=== PATIENT | female | born 1995 | race Caucasian/White ===

== ENCOUNTER → 2022-12-07 | Outpatient (CLI) | payer MEDICAID, SELFPAY ==
[2022-12-12 21:07] LABS: IgG, Quant 1168 mg/dL (586-1602); Immunoglobulin E 131 IU/mL (6-495); Immunoglobulin G, Subclass 1 633 mg/dL (248-810); Immunoglobulin G, Subclass 2 359 mg/dL (130-555); Immunoglobulin G, Subclass 3 74 mg/dL (15-102); Immunoglobulin G, Subclass 4 11 mg/dL (2-96)
== END | disposition home or self-care (01) ==
LOC: LAB 16:51
PROVIDERS: PCP Nurse Practitioner Family; Referring Provider Otolaryngology; Visit Provider Otolaryngology
DX: J35.02 Chronic adenoiditis (principal)
CPT/HCPCS: 36415; 82784; 82785; 82787

== ENCOUNTER → 2025-02-28 | Outpatient (CLI) | payer MEDICAID, SELFPAY ==
--- NOTE | 2025-02-28 06:56 | ECHOD_ITS ---
Reason For Study Reason For Study: Chest Pain Procedure This was a 2D Doppler, Color Flow transthoracic echocardiogram. Exam performed in department. Left Ventricle Normal LV size. Left ventricular systolic function is normal. The left ventricular ejection fraction is 60 %. No regional wall motion abnormalities noted. Right Ventricle Normal RV size. Normal systolic function. Atria Normal left atrium. Normal right atrium. Mitral Valve Normal mitral valve. Tricuspid Valve Normal tricuspid valve. Mild tricuspid valve insufficiency. Pulmonary artery systolic pressure is 19 mmHg. Aortic Valve Normal aortic valve. Pulmonic Valve Normal pulmonic valve. Great Vessels Normal aortic root. The pulmonary artery is normal size. Inferior vena cava collapse with respiration. Pericardium/Pleural No pericardial effusion. MMode/2D Measurements & Calculations LVIDd: 5.0 cm IVSd: 0.77 cm Ao root diam: 2.6 cm LVIDs: 3.3 cm LVPWd: 0.70 cm RVDd: 3.8 cm FS: 33.3 % LAV(MOD-bp): 42.0 ml LVAd ap4: 29.0 cm2 SV(MOD-sp4): 54.4 ml LAV(MOD-bp) Indexed: 21.3 ml/m2 LVLd ap4: 8.0 cm SI(MOD-sp4): 27.5 ml/m2 LAV(MOD-sp2): 35.0 ml EDV(MOD-sp4): 87.3 ml LAV(MOD-sp4): 44.7 ml EDV(sp4-el): 88.9 ml LVAs ap4: 15.7 cm2 LVLs ap4: 6.2 cm ESV(MOD-sp4): 32.8 ml ESV(sp4-el): 33.6 ml EF(MOD-sp4): 62.4 % EF(sp4-el): 62.2 % SV(sp4-el): 55.2 ml LA A4 area: 17.1 cm2 LA dimension(2D): 4.2 cm RA A4 area: 12.3 cm2 TAPSE: 2.1 cm Time Measurements MV dec time: 0.16 sec Doppler Measurements & Calculations MV E max andrea: 66.6 cm/sec Lat Peak E' Andrea: 14.3 cm/sec Med Peak E' Andrea: 9.5 cm/sec MV A max andrea: 52.4 cm/sec E/E' lat: 4.7 E/E' med: 7.0 MV E/A: 1.3 Ao V2 max: 89.7 cm/sec LV V1 max: 79.9 cm/sec MV dec slope: 423.6 cm/sec2 Ao max P.2 mmHg LV V1 max P.6 mmHg Ao V2 mean: 66.6 cm/sec LV V1 mean P.5 mmHg Ao mean P.0 mmHg LV V1 mean: 57.5 cm/sec Ao V2 VTI: 22.0 cm LV V1 VTI: 18.6 cm AV (velocity ratio): 0.84 PA V2 max: 87.2 cm/sec TR max andrea: 196.0 cm/sec TR max P.4 mmHg ECHO/Echo Complete Interpretation Summary Normal LV size. Left ventricular systolic function is normal. The left ventricular ejection fraction is 60 %. Pulmonary artery systolic pressure is 19 mmHg. Ordering Physician: Justyna Mendoza Referring Physician: Justyna Mendoza Performed By: Shannon Burt, IGLESIA, RVT
--- OUTSIDE RECORDS SUMMARY | 2025-02-28 06:59 | XMS RPT_ITS | CCD ---
Author Organization [facility] CliniSynj Care Team Providers Care Weeder Thinner Name Role Phone Unavailable Primary Care Provider UnavailDIONICIO Wiggins Referring Unavailable Ungerer Nayan RODRIGEZssmontana Rasheed Primary Care Provider [phone] DIONICIO VACA Attending Unavailable DINOICIO VACA Admitting Unavailable DIONICIO VACA Attending Unavailable DIONICIO VACA Attending Unavailable DIONICIO VACA Referring Unavailable UNGERER, JUSTYNA D Primary Care Unavailable BANJAKalyani PAULA L Attending Unavailable UNGERER, JUSTYNA D Primary Care Unavailable MAGGIE HUITRON Attending Unavailable BANJAC, PAULA L Referring Unavailable UNGERER, JUSTYNA D Primary Care Unavailable BANJAC, PAULA L Referring Unavailable UNGERER, JUSTYNA D Primary Care Unavailable BANAMOL PAULA L Attending Unavailable DIONICIO VACA Referring Unavailable UNGERER, JUSTYNA D Primary Care Unavailable BANJAC, PAULA L Referring Unavailable UNGERER, JUSTYNA D Primary Care Unavailable BANJAC, PAULA L Referring Unavailable UNGERER, JUSTYNA D Primary Care Unavailable BANJAC, PAULA L Referring Unavailable UNGERER, JUSTYNA D Primary Care Unavailable BANJAC, PAULA L Referring Unavailable UNGERER, JUSTYNA D Primary Care Unavailable BANJAC, PAULA L Referring Unavailable UNGERER, JUSTYNA D Primary Care Unavailable BANJAC, PAULA L Referring Unavailable UNGERER, JUSTYNA D Primary Care Unavailable BANJAC, PAULA L Referring Unavailable UNGERER, JUSTYNA D Primary Care Unavailable BANJAC, PAULA L Referring Unavailable UNGERER, JUSTYNA D Primary Care Unavailable BANJAC, PAULA L Referring Unavailable UNGERER, JUSTYNA D Primary Care Unavailable BANJAC, PAULA L Referring Unavailable UNGERER, JUSTYNA D Primary Care Unavailable DEBORAHRACHELKalyaniKATIUSKAEN L Referring Unavailable UNGERER, JUSTYNA D Primary Care Unavailable UNGERER, JUSTYNA CARD MAKER Attending Unavailable UNGERER, JUSTYNA CARD MAKER Admitting Unavailable UNGERER, JUSTYNA CARD MAKER Primary Care Unavailable UNGERER, JUSTYNA CARD MAKER Consulting Unavailable PROVIDER, UNKNOWN Consulting Unavailable UNGERER, JUSTYNA CARD MAKER Admitting Unavailable UNGERER, JUSTYNA CARD MAKER Primary Care Unavailable UNGERER, JUSTYNA CARD MAKER Consulting Unavailable UNGERER, JUSTYNA CARD MAKER Attending Unavailable PROVIDER, UNKNOWN Consulting Unavailable MABANK, LUZ Primary Care Unavailable MABANK, LUZ Attending Unavailable MABANK, LUZ Admitting Unavailable BIRDIE, PATRIA TRAUMA PROGRAM MANAGER Consulting Unavailable PROVIDER, UNKNOWN Consulting Unavailable PROVIDER, UNKNOWN Consulting Unavailable UNGERER, JUSTYNA CARD MAKER Attending Unavailable UNGERER, JUSTYNA CARD MAKER Admitting Unavailable BIRDIE, PATRIA TRAUMA PROGRAM MANAGER Consulting Unavailable UNGERER, JUSTYNA CARD MAKER Primary Care Unavailable PROVIDER, UNKNOWN Consulting Unavailable PROVIDER, UNKNOWN Consulting Unavailable UNGERER, JUSTYNA CARD MAKER Attending Unavailable UNGERER, JUSTYNA CARD MAKER Admitting Unavailable UNGERER, JUSTYNA CARD MAKER Primary Care Unavailable UNGERER, JUSTYNA CARD MAKER Consulting Unavailable PROVIDER, UNKNOWN Consulting Unavailable UNGERER, JUSTYNA CARD MAKER Attending Unavailable UNGERER, JUSTYNA CARD MAKER Admitting Unavailable UNGERER, JUSTYNA CARD MAKER Primary Care Unavailable UNGERER, JUSTYNA CARD MAKER Consulting Unavailable PROVIDER, UNKNOWN Consulting Unavailable UNGERER, JUSTYNA CARD MAKER Admitting Unavailable UNGERER, JUSTYNA CARD MAKER Primary Care Unavailable UNGERER, JUSTYNA CARD MAKER Consulting Unavailable UNGERER, JUSTYNA CARD MAKER Attending Unavailable PROVIDER, UNKNOWN Consulting Unavailable PATRIA PACKER TRAUMA PROGRAM MANAGER Consulting Unavailable PATRIA PACKER TRAUMA PROGRAM MANAGER Attending Unavailable PATRIA PACKER TRAUMA PROGRAM MANAGER Admitting Unavailable PATRIA PACKER TRAUMA PROGRAM MANAGER Primary Care Unavailable PROVIDER, UNKNOWN Consulting Unavailable PROVIDER, UNKNOWN Consulting Unavailable Birdie CARD MAKER-C, Patria Primary Care Provider [phone] Birdie CARD MAKER-CPatria Referring Provider Ungfelixr CARD MAKER-C, Justyna Attending Provider Birdie CARD MAKERPatria Referring Unavailable Ungerer, Justyna Attending Unavailable Ungerer, Justyna Primary Care Unavailable Ungerer, Jsutyna Referring Unavailable Ungerer, Justyna Attending Unavailable Ungerer, Justyna Primary Care Unavailable Medications Current Medications Medication Drug Class(es) Dates Sig (Normalized) Sig (Original) acetaminophen 325 mg / HYDROcodone bitartrate 5 mg oral tablet (1 source) Opioid Agonist Start: 04-18-2024 End: 04-20-2024 HYDROcodone-acetamin ophen (NORCO) 5-325 mg per tablet Indications: acute post operative pain Take 1 tablet every 6 to 8 hours as needed for severe post op pain 6 tablet 04/18/2024 04/20/2024 Active cyclobenzaprine hydrochloride 5 mg oral tablet (1 source) Muscle Relaxant Start: 02-11-2025 take 1 tablet by mouth at bedtime as needed for muscle spasms Cyclobenzaprine 5 mg tablet Active 5 mg PO AT BEDTIME as needed for muscle spasm 30 0 February 11, 2025 12:00am ibuprofen 600 mg oral tablet (17 sources) Nonsteroidal Anti-inflammatory Drug Start: 04-18-2024 ibuprofen (MOTRIN) 600 mg tablet Take 1 tablet every 6 o 8 hours as needed for pain or swelling 28 tablet 04/18/2024 Active thyroid (intermediate) 180 mg oral tablet (20 sources) Start: 02-11-2025 take 1 tablet by mouth once daily Thyroid (Pork) 180 mg tablet Active 180 mg PO daily 90 3 February 11, 2025 10:07am Start: 06-12-2023 End: 02-11-2025 Thyroid (Pork) (Termite Helper Thyroid) 90 mg tablet Discontinued mg PO June 12, 2023 1:00am February 11, 2025 10:09am Start: 08-12-2021 take 1 tablet by brad th once daily CARD MAKER THYROID 120 mg tablet Take 120 mg by mouth once daily. 08/12/2021 Active Start: 08-12-2021 thyroid (CARD MAKER TH YROID) 15 mg tablet Take 15 mg by mouth once daily. Total 135 mg daily 08/12/2021 Active Completed/Discontinued Medications Medication Drug Class(es) Dates Sig (Normalized) Sig (Original) acetaminophen 325 mg oral tablet (18 sources) Start: 04-18-2024 End: 04-18-2024 650 mg, ORAL, ONCE, 1 dose, On Ursula 04/18/24 at 1530, For mild pain or headache, if not given any other Acetaminophen containing product 4 hours prior, Recovery or Phase I (only) Start: 04-18-2024 acetaminophen (ACETAMINOPHEN EXTRA STRENGTH) 500 mg tablet Take 1 tablet every 4 to 6 hours as needed for pain 40 tablet 04/18/2024 Active calcium chloride 0.0014 meq/ml / potassium chloride 0.004 meq/ml / sodium chloride 0.103 meq/ml / sodium lactate 0.028 meq/ml injectable solution (2 sources) Start: 04-18-2024 End: 04-19-2024 take 5-30 mL intravenously every hour 5-30 mL/hr, INTRAVENOUS, CONTINUOUS, Starting on Ursula 04/18/24 at 1530, Until Mon04/19/24 at 0304, Recovery or Phase I (only) Meperidine (2 sources) Opioid Agonist Start: 04-18-2024 End: 04-19-2024 25 mg, INTRAVENOUS, EVERY 5 MINUTES NEEDED, 6 doses, Starting on Ursula 04/18/24 at 1513, Until Mon04/19/24 at 0304, Moderate Pain (4-6) - Parenteral, Severe Pain (>/=7) - Parenteral, First Line Therapy, USE FOR MODERATE TO SEVERE PAIN ONLY IF PATIENT IS UNABLE TO TOLERATE ORAL THERAPY, Recovery or Phase I (only) Start: 04-18-2024 End: 04-19-2024 12.5 mg, INTRAVENOUS, EVERY 10 MINUTES NEEDED, 2 doses, Starting on Ursula 04/18/24 at 1513, Until Mon04/19/24 at 0304, for shivering, May Repeat 12.5 mg in 10 minutes X1 for Continued Shivering, Recovery or Phase I (only) oxyCODONE hydrochloride 5 mg oral tablet (1 source) Opioid Agonist Start: 04-18-2024 End: 04-18-2024 take 1 dose by mouth once 10 mg, ORAL, ONCE, 1 dose, On Ursula 04/18/24 at 1530, Recovery or Phase I (only) Problems Active Problems Problem Classification Problem Date Documented Date Episodic/Chronic Esophageal disorders (20 sources) Gastroesophageal reflux disease; Translations: [Gastro-esophageal reflux disease without esophagitis] 04-11-2024 Chronic Headache; including migraine (1 source) Migraine; Translations: [Migraine, unspecified, not intractable, without status migrainosus] 02-11-2025 Chronic Nonspecific chest pain (2 sources) Other chest pain; Translations: [Other chest pain] Onset: 02-11-2025 Episodic Nutritional deficiencies (1 source) Vitamin deficiency; Translations: [Vitamin deficiency, unspecified] 02-11-2025 Episodic Other congenital anomalies (20 sources) Donte-Danlos syndrome; 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, unspecified] 04-11-2024 Chronic Other congenital anomalies (1 source) Talipes cavus; Translations: [Congenital pes cavus, right foot] 06-04-2024 Chronic Other connective tissue disease (1 source) Hand pain; Translations: [Pain in right hand] 06-12-2023 Episodic Other nervous system disorders (4 sources) Other chronic pain; Translations: [Chronic pain of left knee] Onset: 03-13-2024 Chronic Other nervous system disorders (1 source) Postoperative pain ; Translations: [Other acute postprocedural pain] 04-18-2024 Episodic Other non-traumatic joint disorders (20 sources) Pain in left knee; Translations: [Pain in joint, lower leg] Onset: 03-13-2024 01-24-2024 Episodic Other non-traumatic joint disorders (3 sources) Acute ankle pain; Translations: [Pain in left ankle and joints of left foot] 05-07-2024 Episodic Other non-traumatic joint disorders (2 sources) Chronic ankle pain; Translations: [Pain in right ankle and joints of right foot] 05-07-2024 Episodic Other non-traumatic joint disorders (1 source) Ankle instability; Translations: [Other instability, unspecified ankle] 06-04-2024 Episodic Other non-traumatic joint disorders (1 source) Pain in left ankle and joints of left foot; Translations: [Acute left ankle pain] Onset: 06-04-2024 Episodic Other non-traumatic joint disorders (1 source) Pain in right ankle and joints of right foot; Translations: [Chronic pain of right ankle] Onset: 06-04-2024 Episodic Other non-traumatic joint disorders (1 source) Pain in right knee; Translations: [Pain in right knee] Onset: 02-11-2025 Episodic Other nutritional; endocrine; and metabolic disorders (20 sources) Obese class II; Translations: [Obesity, unspecified] Onset: 04-11-2024 04-11-2024 Chronic Other skin disorders (1 source) Eruption; Translations: [Rash and other nonspecific skin eruption] 04-11-2024 Episodic Residual codes; unclassified (20 sources) Pain; Translations: [Pain, unspecified] Onset: 04-18-2024 01-24-2024 Episodic Sprains and strains (1 source) Sprain of left ankle; Translations: [Sprain of unspecified ligament of left ankle, initial encounter] 06-12-2023 Episodic Thyroid disorders (20 sources) Hypothyroidism; Translations: [Hypothyroidism, unspecified] Onset: 04-11-2024 04-11-2024 Chronic Unclassified (1 source) Physical Therapy Onset: 05-02-2024 Unclassified (1 source) Cough, unspecified; Translations: [Cough, unspecified] Onset: 08-30-2024 Unclassified (1 source) Pain in both knees Unclassified (1 source) Q79.60 - Donte-Danlos syndrome, unspecified,M25.561 - Pain in right knee,M25.562 - Pain in left knee Unclassified (1 source) Donte-Danlos syndrome, unspecified; Translations: [Dnote-Danlos syndrome, unspecified] Onset: 02-11-2025 Past or Other Problems Problem Classification Problem Date Documented Da te Episodic/Chronic Malaise and fatigue (1 source) Other fatigue; Translations: [Other fatigue] Onset: 01-05-2024 Episodic Other injuries and conditions due to external causes (3 sources) Unspecified injury of right foot, initial encounter; Translations: [Unspecified injury of right foot, initial encounter] Onset: 03-25-2024 Episodic Residual codes; unclassified (1 source) Pain, unspecified; Translations: [Pain] Onset: 01-24-2024 Episodic Results Test Name Value Interpretation Reference Range Facility Internal Medicine Office Vis iton 02-11-2025 Internal Medicine Office Visit [facility] [address] [place], [place] [address] OFFICE VISIT Date of Service: 02/11/25 MR#: [id number] Acct: [id number] Name: RERE KNUTSON Rep #: [id number] : 1995 Provider: ANGELI pugh Age/Sex: 30/F Location: [facility] [place] Status: Signed Intake Vital Signs 06/12/23 09:29 02/11/25 09:04 Height 5 ft 7 in 5 ft 7 in Weight: 252 lb BMI 39.4 BP 130/78 H Blood Pressure Location Lt brachial Position Sitting Respiration 16 Pulse 90 Pulse Source Monitor Temp 97.8 F Temp Source Temporal Pulse Oximetry (%) 98 Oxygen Delivery Method room air Intake Visit Reasons: EST NEW PT - NEEDS [facility] - [facility] PT Chief Complaint: establishing neck pain Kitchen Clerk Required: No Accompanied by: Self Is patient in pain?: No Allergies No Known Allergies Allergy (Unverified 02/11/25 08:57) Medications ???Medication ???Instructions ???Recorded ???Confirmed ???Type cyclobenzaprine 5 mg tablet 5 mg PO QHS PRN muscle spasm #30 0 02/11/25 02/11/25 Rx tabs thyroid (pork) 180 mg tablet 180 mg PO QDAY #90 tabs 02/11/25 0 02/11/25 Rx Nurse's Note: establishing and neck pain today PFSH Medical History (Updated 02/11/25 @ 13:34 by ANGELI Tan) Vitamin deficiency GERD (gastroesophageal reflux disease) Migraines Donte-Danlos syndrome Right hand pain Left ankle sprain Hx of cyst of breast Surgical History (Updated 02/11/25 @ 09:16 by Tierney Nunn) H/O lumpectomy Hx of anterior cruciate ligament surgery Family History (Updated 02/11/25 @ 09:15 by Tierney Nunn) Mother Autoimmune disease Diabetes Grandfather Parkinsons disease Seizures History of heart attack Grandmother Diabetes CVA (cerebral vascular accident) Autoimmune disease Social History (Updated 02/11/25 @ 09:08 by Tierney Nunn) adopted: No household members: family housing: house current occupational status: employed current occupational exposures/hazards: No pets and animals: Yes leisure activities: sports, games and reading history of recent travel: Yes out of country: Yes sexually active: No Smoking Status: Never smoker alcohol intake: never substance use type: does not use diet: gluten free and other well-balanced diet: daily or most days caffeine: No eating out: rarely or never during the past year weight has: other details: fluctuates both up and down what type of physical activity do you participate in: walking, bicycling and swimming frequency: daily duration: 15-30 minutes/day john/hoahaoism: Gnosticist seatbelt use: always do you feel safe at home: Yes HPI HPI Chief Complaint: establishing neck pain Details: RERE KNUTSON, is a 30 F who presents to the office today to establish care with a new provider. This patient is known to this provider from previous office. Patient here today with complaints of neck pain chronic pain in bilateral knees and right ankle. Patient with history of Donte-Danlos syndrome. And hypothyroidism currently on Prather Thyroid. States last TSH was checked in January and was normal. She does complain of stiff neck states she has had a little bit of sore throat and headache and some pain into the right jaw and down the back of the neck she has had some occasional dizziness as well as a frontal headache. States she does have a history of seasonal allergies. No known injuries or increased illnesses. Patient states in December she did travel to [place] and had a bug bite and she felt sick for a while after that however she that illness resolved but she does seem to complain of more fatigue than usual. Also complains of occasional left-sided chest pain that comes and goes feels sharp when it does occur states 2 years ago she went to the emergency room and they did an EKG she states it was normal denies further cardiac workup has had a history of limb swelling and lightheadedness and dizziness. ROS Const Constitutional: Positive for fatigue and headache(s); No body ache, excessive sweating, fever(s), frequent falls, snoring, weakness, weight change, sleep problems or change in appetite Eyes Eyes: No blurry vision, change in vision, eye pain or Light sensitivity ENT ENT: Positive for headache(s) and neck pain; No abnormal hearing, ear or mastoid pain, tinnitus, nasal congestion or sore throat Resp Respiratory: No cough, shortness of breath, snoring or wheezing Cardio Cardiology: Positive for chest pain at rest and lightheadedness; No chest pain with exertion, excessive sweating, shortness of breath, dyspnea on exertion, orthopnea or palpitations Gastro GI: No abdominal pain, change in bowel habits, constipation, cramping, diarrhea, nausea/dyspepsia or vomiting Genitourinary-Female: No burning urination, painful urination, urinary inconti (more content not included)... Normal [facility] TSHon 12-09-2024 TSH Qn 2.03 m[IU]/L Normal 0.35 - 3.74 [facility] Comment on above: Performed By: #### 2 [id number] #### [facility],[address] [place] [address] US BREAST BILAT COMPLETEon 0 10-09-2024 US BREAST BILAT COMPLETE [place] [id number] Patient: RERE KNUTSON Phone#: : 1995 Age: 29 Gender: F Pt. Type: Out Account: [id number] Location: [facility] Ordering: PATRIA PACKER Exam Date: 10/09/2024/11:34 Family Phys: Charge Code: [id number] Physician: Essex Order #: [id number] Dose#: PROCEDURE: ULTRASOUND BREAST BILAT COMPARISON: [facility], US, CORE BIOPSY BREAST BILATERAL-US 1ST LESION, 12/06/2023, 8:57. [facility], US, BREAST BILAT COMPLETE, 11/09/2023, 8:36. INDICATIONS: Follow up breast masses TECHNIQUE: Breast ultrasound was performed, with evaluation focusing on all four quadrants. FINDINGS: DIAGNOSTIC CATEGORY 3--PROBABLY BENIGN: FINDING(S) HAS A HIGH PROBABILITY OF A BENIGN; RIGHT BREAST: Solid benign-appearing circumscribed mass, hypoechoic echotexture, mid- breast depth, 12 o'clock position, and 18 x 9 x 16 mm size, unchanged. RIGHT BREAST: Solid benign-appearing circumscribed mass, hypoechoic echotexture, mid- breast depth, 12 o'clock position, and 6x6x6 mm size, previously 8 x 6 x 8 mm. Biopsy-proven fibroadenoma. RIGHT BREAST: Solid benign-appearing circumscribed mass, hypoechoic echotexture, anterior depth, 12 o'clock position, and 6x4x7 mm size, previously 8 x 4 x 8 mm. RIGHT BREAST: Simple benign-appearing cyst, anechoic echotexture, anterior depth, 12 o'clock position, and 4x5x4 mm size. RIGHT BREAST: Enlarging solid appearing mass with likely benign morphology, hypoechoic echotexture, anterior depth, 2 o'clock position, and [id number] mm size, previously 13 x 11 x 13 mm. RIGHT BREAST: Enlarging solid benign-appearing circumscribed mass, hypoechoic echotexture, mid-breast depth, 11 o'clock position, and 38 x 26 x 32 mm, previously [id number] mm size. This is biopsy-proven fibroadenoma. LEFT BREAST: Enlarging solid appearing mass with likely benign morphology, hypoechoic echotexture, anterior depth, 12 o'clock position, and [id number] mm size, previously 19 x 16 x 26 mm. Continued Report - Page 2 of 2 Patient: RERE KNUTSON Phone#: : 1995 Age: 29 Gender: F Pt. Type: Out Account: [id number] Location: [facility] Ordering: PATRIA PACKER Exam Date: 10/09/2024/11:34 Family Phys: Charge Code: [id number] Physician: Essex Order #: [id number] Dose#: LEFT BREAST: Solid benign-appearing circumscribed mass, hypoechoic echotexture, anterior depth, 12 o'clock position, and [id number] mm size, previously 15 x 14 x 13 mm. Biopsy-proven fibroadenoma. LEFT BREAST: Enlarging solid lesion, hypoechoic echotexture, anterior depth, 12 o'clock position, and [id number] mm size, previously 10 x 8 x 8 mm. Biopsy-proven fibroadenoma. LEFT BREAST: Solid benign-appearing circumscribed mass, hypoechoic echotexture, anterior depth, 12 o'clock position, and 9x6x10 mm size, previously 8 x 6 x 10 mm. LEFT BREAST: Simple benign-appearing cyst, anechoic echotexture, anterior depth, 3 o'clock position, and 4x3x4 mm size. LEFT BREAST: Solid benign-appearing circumscribed mass, hypoechoic echotexture, anterior depth, 3 o'clock position, and 6x4x6 mm size, previously 6 x 7 mm. LEFT BREAST: Solid appearing mass with likely benign morphology, isoechoic echotexture, mid-breast depth, 6 o'clock position, and 6x4x6 mm size, previously 5 x 4 x 7 mm. Margins are mildly irregular. LEFT BREAST: Stable cluster of simple benign-appearing cyst, anechoic echotexture, posterior depth, 10 o'clock position, and 10 mm size. RECOMMENDATIONS: SHORT TERM FOLLOW-UP ULTRASOUND LEFT BREAST IN 6 MONTHS solid lesion in the 6 o'clock position with irregular margins. Several lesions have increased size compared to prior. Some of these lesions are biopsy- proven fibroadenomas. PLEASE NOTE: A NORMAL MAMMOGRAM DOES NOT EXCLUDE THE POSSIBILITY OF BREAST CANCER. A CLINICALLY SUSPICIOUS PALPABLE LUMP SHOULD BE BIOPSIED. Dictated by: Marge Starr MD on 10/09/2024 at 16:31 Approved by: Marge Starr MD on 10/09/2024 at 17:21 Normal [facility] CBC + DIFFon 08-30-2024 Baso # 0.02 x10EE3/UL Normal 0.00 - 0.10 [facility] Comment on above: Performed By: #### 2 [id number] #### [facility],[address] [place], [place] [id number] Basophils/100 WBC (Bld) 0.2 % Normal 0.0 - 2.0 [facility] Comment on above: Performed By: #### 2 [id number] #### [facility],[address] [place] [address] CBC + DIFF Normal [facility] Comment on above: Result Comment: CBC- COMPLETE BLOOD COUNT Performed By: #### 2 [id number] #### [facility],[address] [place], [place] [id number] EO # 0.26 x10EE3/UL Normal 0.00 - 0.50 [facility] Comment on above: Performed By: #### 2 40526 #### [facility],[address] [place] [address] Eosinophils/100 WBC (Bld) 2.9 % Normal 0.0 - 7.0 [facility] Comment on above: Performed By: #### 2 [id number] #### [facility],[address] [place] [address] Erythrocyte distribution width (RBC) [Ratio] 13.9 % Normal 12.0 - 15.6 [facility] Comment on above: Performed By: #### 2 [id number] #### [facility],[address] [place] [address] Hematocrit (Bld) [Volume fraction] 42.6 % Normal 34.0 - 46.0 [facility] Comment on above: Performed By: #### 2 [id number] #### [facility],[address] [place] [address] Hemoglobin (Bld) [Mass/Vol] 14.5 g/dL Normal 12.0 - 16.0 [facility] Comment on above: Performed By: #### 2 [id number] #### [facility],[address] [place] [address] Lymph # 2.47 x10EE3/UL Normal 0.80 - 2.80 [facility] Comment on above: Performed By: #### 2 [id number] #### [facility],[address] [place] [address] Lymphocytes/100 WBC (Bld) 28.0 % Normal 20.0 - 45.0 [facility] Comment on above: Performed By: #### 2 23705 #### [facility],[address] [place] [address] MANUAL DIFF N/A Normal [facility] Comment on above: Performed By: #### 2 [id number] #### [facility],[address] [place], [place] [id number] MCH (RBC) [Entitic mass] 29 pg Normal 27 - 33 [facility] Comment on above: Performed By: #### 2 02247 #### [facility],[address] [place] [address] MCHC 34 X10 3 Normal 32 - 36 [facility] Comment on above: Performed By: #### 2 [id number] #### [facility],[address] [place], [place] [address] MCV (RBC) [Entitic vol] 85 fL Normal 80 - 99 [facility] Comment on above: Performed By: #### 2 88539 #### [facility],[address] [place] [address] Foard # 0.53 x10EE3/UL Normal 0.20 - 1.00 [facility] Comment on above: Performed By: #### 2 81179 #### [facility],[address] [place] [address] MONOS % 6.0 % Normal 0.0 - 10.0 [facility] Comment on above: Performed By: #### 2 [id number] #### [facility],[address] [place] [address] Morphology Lion (Bld) [Interp] N/A Normal [facility] Comment on above: Performed By: #### 2 [id number] #### [facility],[address] [place], [place] [address] Neut # 5.56 x10EE3/UL Normal 1.50 - 7.10 [facility] Comment on above: Performed By: #### 2 [id number] #### [facility],[address] [place] [address] Neutrophils/100 WBC (Bld) 62.9 % Normal 46.0 - 76.0 [facility] Comment on above: Performed By: #### 2 97777 #### [facility],[address] [place] [address] PLATELET 388 x10EE3/UL Normal 150 - 450 [facility] Comment on above: Performed By: #### 2 19217 #### [facility],[address] [place], [place] [id number] Platelet mean volume (Bld) [Entitic vol] 7.5 fL Normal 6.6 - 10.5 [facility] Comment on above: Result Comment: AUTO MATED DIFFERENTIAL Performed By: #### 2 53885 #### [facility],[address] [place] [address] 51420 RBC 5.00 x 10EE6/UL Normal 4.10 - 5.30 [facility] Comment on above: Performed By: #### 2 42292 #### [facility],[address] [place] [address] 48835 WBC 8.8 x 10EE3/UL Normal 4.5 - 10.8 [facility] Comment on above: Performed By: #### 2 74649 #### [facility],[address] [place] [address] 77285 CHEST 2 VIEWSon 08-30-2024 CHEST 2 VIEWS [place] [address] Patient: RERE KNUTSON Phone#: : 1995 Age: 29 Gender: F Pt. Type: Out Account: [id number] Location: [facility] Ordering: JUSTYNA COLUNGA Exam Date: 08/30/2024/9:52 Family Phys: Charge Code: 112803 Physician: [place] Order #: [id number] Dose#: PROCEDURE: X-RAY CHEST 2 VIEWS COMPARISON: [facility], XR, CHEST 1 VIEW, 03/18/2023, 23:53. INDICATIONS: Cough in adult. FINDINGS: LUNGS: Normal. No significant pulmonary parenchymal abnormalities. VASCULATURE: Normal. Unremarkable pulmonary vasculature. CARDIAC: Normal. No cardiac silhouette abnormality or cardiomegaly. MEDIASTINUM: Normal. No visible mass or adenopathy. PLEURA: Normal. No effusion or pleural thickening. BONES: Normal. No fracture or visible bony lesion. OTHER: Negative. CONCLUSION: No acute disease. No significant change has occurred. Dictated by: Laila Temple MD on 08/30/2024 at 10:02 Approved by: Laila Temple MD on 08/30/2024 at 10:03 Normal [facility] CMP with eGFRon 08-30-2024 AGE 29 years Normal [facility] Comment on above: Performed By: #### 2 13470 #### [facility],[address] [place] [address] 92105 Albumin [Mass/Vol] 3.5 g/dL Normal 3.4 - 5.0 [facility] Comment on above: Performed By: #### 2 23406 #### [facility],[address] [place] [address] 72281 Albumin/Globulin [Mass ratio] 1.0 {ratio} Normal 0.9 - 1.6 [facility] Comment on above: Performed By: #### 2 19322 #### [facility],[address] [place] [address] 81294 ALK PHOS 84 U/L Normal 46 - 116 [facility] Comment on above: Performed By: #### 2 65429 #### [facility],[address] [place] [address] 35242 ALT [Catalytic activity/Vol] 19 U/L Normal 16 - 63 [facility] Comment on above: Performed By: #### 2 17169 #### [facility],[address] [place] [address] 88495 Anion gap [Moles/Vol] 12 mmol/L Normal 10 - 20 [facility] Comment on above: Performed By: #### 2 64063 #### [facility],[address] [place] [address] 22042 AST [Catalytic activity/Vol] 16 U/L Normal 13 - 39 [facility] Comment on above: Performed By: #### 2 48116 #### [facility],[address] [place] [address] 78047 B/C RATIO 13 ratio Normal 0 - 30 [facility] Comment on above: Performed By: #### 2 75899 #### [facility],[address] [place] [address] 45090 Bilirubin [Mass/Vol] 0.2 mg/dL Normal 0.2 - 1.0 [facility] Comment on above: Performed By: #### 2 84718 #### [facility],[address] [place] [address] 44278 Calcium [Mass/Vol] 8.7 mg/dL Normal 8.5 - 10.1 [facility] Comment on above: Performed By: #### 2 69770 #### [facility],[address] [place] [address] 53395 Chloride [Moles/Vol] 107 mmol/L Normal 98 - 107 [facility] Comment on above: Performed By: #### 2 57999 #### [facility],[address] [place] [address]24 CMP with eGFR Normal [facility] Comment on above: Result Comment: COMP REHENSIVE METABOLIC PANEL Performed By: #### 2 23459 #### [facility],[address] [place] [address]8950 CO2 [Moles/Vol] 26.1 mmol/L Normal 21.0 - 32.0 [facility] Comment on above: Performed By: #### 2 02523 #### [facility],[address] [place] [address] 99941 Creatinine [Mass/Vol] 0.77 mg/dL Normal 0.55 - 1.02 [facility] Comment on above: Performed By: #### 2 00574 #### [facility],[address] [place] [address] 11906 GFR/1.73 sq M.predicted among non-blacks MDRD (S/P/Bld) [Vol rate/Area] mL/min/{1.73_m2} Normal 60 - 999 [facility] Comment on above: Performed By: #### 2 30639 #### [facility],[address] [place], [place] [address] Result Comment: ACCO RDING TO THE NATIONAL KIDNEY DISEASE EDUCATION PROGRAM(NKDE), A NORMAL eGFR IS A VALUE GREATER THAN OR EQUAL TO 60 ML/MIN/1.73 SQ METERS. CHRONIC KIDNEY DISEASE: <60mL/MIN/1.73 SQ METERS KIDNEY FAILURE: <15mL/MIN/1.73 SQ METERS THIS TEST SHOULD ONLY BE USED FOR PATIENTS 18 YEARS OF AGE AND OLDER. Globulin (S) [Mass/Vol] 3.5 g/dL Normal 1.5 - 3.8 [facility] Comment on above: Performed By: #### 2 42221 #### [address] [address] Glucose [Mass/Vol] 106 mg/dL Normal 74 - 106 [facility] Comment on above: Performed By: #### 2 41205 #### [address] [address] Potassium [Moles/Vol] 4.1 mmol/L Normal 3.5 - 5.1 [facility] Comment on above: Performed By: #### 2 14938 #### [address] [address] Protein [Mass/Vol] 7.0 g/dL Normal 6.4 - 8.2 [facility] Comment on above: Performed By: #### 2 54507 #### [address] [address] Sodium [Moles/Vol] 141 mmol/L Normal 136 - 145 [facility] Comment on above: Performed By: #### 2 34784 #### [address] [address] Urea nitrogen [Mass/Vol] 10 mg/dL Normal 7 - 18 [facility] Comment on above: Performed By: #### 2 53832 #### [address] [address] T4-FREE (FREE THYROXINE)on 0 08-30-2024 Free T4 [Mass/Vol] 0.61 ng/dL Low 0.76 - 1.46 [facility] Comment on above: Result Comment: P otential of falsely elevated results when biotin concentrations are > 10 ng/mL. Performed By: #### 2 73820 #### [facility],[address] [place], [place] [address] TSHon 08-30-2024 TSH Qn 6.28 m[IU]/L High 0.35 - 3.74 [facility] Comment on above: Performed By: #### 2 01244 #### [facility],[address] [place], [place] [address] T4-FREE (FREE THYROXINE)on 08-21-2023 Free T4 [Mass/Vol] 0.74 ng/dL Low 0.76 - 1.46 [facility] Comment on above: Result Comment: P otential of falsely elevated results when biotin concentrations are > 10 ng/mL. Performed By: #### 2 47933 #### [place] [address] TSHon 06-21-2024 TSH Qn 0.22 m[IU]/L Low 0.35 - 3.74 [facility] Comment on above: Performed By: #### 2 77886 #### [facility],[address] [place] [address] CNTHERAPYon 06-10-2024 CNTHERAPY OT/PT/Speech Visit (PTNEWPHIL) RERE KNUTSON ([id number]) 1995 F Date Time Provider Department 06/10/24 8:00 AM SAMUEL VELASQUEZ Date Time Provider Department [place] 06/10/2024 8:00 AM [id number] for Visit: [facility] Therapy [503] PT Discharge [752] Primary Visit Diagnosis:Chronic pain of left knee [M25.562, G89.29] Allergies As of Date: 06/10/2024 (No Known Allergies) Date Reviewed: 06/04/2024 Reviewed by: Omayra Gan MA - Fully Assessed Prescriptions as of 09/04/2024 - acetaminophen (ACETAMINOPHEN EXTRA STRENGTH) 500 mg tablet Take 1 tablet every 4 to 6 hours as needed for pain - ibuprofen (MOTRIN) 600 mg tablet Take 1 tablet every 6 o 8 hours as needed for pain or swelling - CARD MAKER THYROID 120 mg tablet Take 120 mg by mouth once daily. - thyroid (CARD MAKER THYROID) 15 mg tablet Take 15 mg by mouth once daily. Total 135 mg daily Information Systems Security Manager: Therapy (PT/OT/Speech/Resp) ID: [id number] 06/10/2024 8:22 AM Author: SAMUEL VELASQUEZ Signed by SAMUEL VELASQUEZ PT, DPT on 06/10/2024 at 8:22 AM Document text: Program_ID:[id number] Access Code: [email or web address] URL: [email or web address] Date: 06-10-2024 Prepared By: Samuel Velasquez Program Notes Exercises - Gastroc Stretch on Wall - 1 x daily - 7 x weekly - 3 sets - 10 reps - Long Sitting Calf Stretch with Strap - 1 x daily - 7 x weekly - 3 sets - 10 reps - Ankle Dorsiflexion with Resistance - 1 x daily - 7 x weekly - 3 sets - 10 reps - CLX Ankle Dorsiflexion and Eversion - 1 x daily - 7 x weekly - 3 sets - 10 reps - Ankle Inversion with Resistance - 1 x daily - 7 x weekly - 3 sets - 10 reps - Ankle Eversion with Resistance - 1 x daily - 7 x weekly - 3 sets - 10 reps - Ankle Plantar Flexion with Resistance - 1 x daily - 7 x weekly - 3 sets - 10 reps - Seated Ankle Inversion with Resistance - 1 x daily - 7 x weekly - 3 sets - 10 reps - Heel Raises with Counter Support - 1 x daily - 7 x weekly - 3 sets - 10 reps Therapy (PT/OT/Speech/Resp) ID: [id number] 06/10/2024 8:16 AM Author: SAMUEL VELASQUEZ Signed by SAMUEL VELASQUEZ PT, DPT on 06/10/2024 at 8:16 AM Document text: Program_ID:[id number] Access Code: [email or web address] URL: [email or web address] Date: 06-10-2024 Prepared By: LUZ QUIJANO Program Notes Exercises - Active Straight Leg Raise with Quad Set - 1 x daily - 5 x weekly - 1-3 sets - 10 reps - Sidelying Hip Abduction - 1 x daily - 7 x weekly - 3 sets - 10 reps - Hip Extension with Leg Straight - 1 x daily - 7 x weekly - 3 sets - 10 reps - Supine Bridge - 1 x daily - 7 x weekly - 3 sets - 10 reps - Clamshell with Resistance - 1 x daily - 7 x weekly - 3 sets - 10 reps - Bird Dog - 1 x daily - 7 x weekly - 3 sets - 10 reps - Single Leg Stance - 1 x daily - 7 x weekly - 3 sets - 10 reps - Supine Bridge with Resistance Band - 1 x daily - 7 x weekly - 3 sets - 10 reps - Side Stepping with Resistance at Thighs - 1 x daily - 7 x weekly - 3 sets - 10 reps - Forward Monster Walks - 1 x daily - 7 x weekly - 3 sets - 10 reps - Forward Step Down with Heel Tap and Counter Support - 1 x daily - 7 x weekly - 3 sets - 10 reps - Bug - 1 x daily - 7 x weekly - 3 sets - 10 reps [facility] THERAPY NTon 06-10-2024 THERAPY NT HNO ID: [id number] Author: SAMUEL VELASQUEZ, PT Service: ? Author Type: Physical Therapist Type: Therapy (PT/OT/Speech/Resp) Filed: 06/10/2024 08:22 Note Text: Program_ID:[id number] Access Code: [email or web address] URL: [email or web address]/ Date: 06-10-2024 Prepared By: Samuel Velasquez Program Notes Exercises - Gastroc Stretch on Wall - 1 x daily - 7 x weekly - 3 sets - 10 reps - Long Sitting Calf Stretch with Strap - 1 x daily - 7 x weekly - 3 sets - 10 reps - Ankle Dorsiflexion with Resistance - 1 x daily - 7 x weekly - 3 sets - 10 reps - CLX Ankle Dorsiflexion and Eversion - 1 x daily - 7 x weekly - 3 sets - 10 reps - Ankle Inversion with Resistance - 1 x daily - 7 x weekly - 3 sets - 10 reps - Ankle Eversion with Resistance - 1 x daily - 7 x weekly - 3 sets - 10 reps - Ankle Plantar Flexion with Resistance - 1 x daily - 7 x weekly - 3 sets - 10 reps - Seated Ankle Inversion with Resistance - 1 x daily - 7 x weekly - 3 sets - 10 reps - Heel Raises with Counter Support - 1 x daily - 7 x weekly - 3 sets - 10 reps Normal [facility] THERAPY NT HNO ID: [id number] Author: SAMUEL VELASQUEZ, PT Service: ? Author Type: Physical Therapist Type: Therapy (PT/OT/Speech/Resp) Filed: 06/10/2024 08:16 Note Text: Program_ID:[id number] Access Code: [email or web address] URL: [email or web address]/ Date: 06-10-2024 Prepared By: LUZ QUIJANO Program Notes Exercises - Active Straight Leg Raise with Quad Set - 1 x daily - 5 x weekly - 1-3 sets - 10 reps - Sidelying Hip Abduction - 1 x daily - 7 x weekly - 3 sets - 10 reps - Hip Extension with Leg Straight - 1 x daily - 7 x weekly - 3 sets - 10 reps - Supine Bridge - 1 x daily - 7 x weekly - 3 sets - 10 reps - Clamshell with Resistance - 1 x daily - 7 x weekly - 3 sets - 10 reps - Bird Dog - 1 x daily - 7 x weekly - 3 sets - 10 reps - Single Leg Stance - 1 x daily - 7 x weekly - 3 sets - 10 reps - Supine Bridge with Resistance Band - 1 x daily - 7 x weekly - 3 sets - 10 reps - Side Stepping with Resistance at Thighs - 1 x daily - 7 x weekly - 3 sets - 10 reps - Forward Monster Walks - 1 x daily - 7 x weekly - 3 sets - 10 reps - Forward Step Down with Heel Tap and Counter Support - 1 x daily - 7 x weekly - 3 sets - 10 reps - Bug - 1 x daily - 7 x weekly - 3 sets - 10 reps Normal [facility] CNTHERAPYon 06-05-2024 CNTHERAPY OT/PT/Speech Visit (PTNEWPHIL) RERE KNUTSON ([id number]) 1995 F Date Time Provider Department 06/05/24 8:00 AM [facility] Date Time Provider Department Center 06/05/2024 8:00 AM [id number][facility] Reason for Visit: Physical Therapy [503] Primary Visit Diagnosis:Chronic pain of left knee [M25.562, G89.29] Allergies As of Date: 06/05/2024 (No Known Allergies) Date Reviewed: 06/04/2024 Reviewed by: Omayra Gan MA - Fully Assessed Prescriptions as of 06/05/2024 - acetaminophen (ACETAMINOPHEN EXTRA STRENGTH) 500 mg tablet Take 1 tablet every 4 to 6 hours as needed for pain - ibuprofen (MOTRIN) 600 mg tablet Take 1 tablet every 6 o 8 hours as needed for pain or swelling - CARD MAKER THYROID 120 mg tablet Take 120 mg by mouth once daily. - thyroid (CARD MAKER THYROID) 15 mg tablet Take 15 mg by mouth once daily. Total 135 mg daily [facility] CNOVon 06-04-2024 CNOV Office Visit (PODIWS ) RERE KNUTSON ([id number]) 1995 F Date Time Provider Department 06/04/24 8:45 AM MAGGIE HUITRON PODIWS During your visit today, we recorded the following information about you: Maggie Huitron 06/04/2024 10:14 AM Signed Consultation requested by Dr. Fitzgerald for an opinion regarding ankle pain. My final recommendations will be communicated back to the requesting physician by way of shared Medical record or letter to requesting physician via US mail. Initial Podiatric Office Visit: Chief Complaint: This 29 year old female who presents with chief complaint:b/l ankle pain HPI Patient presents to clinic with complaint of b/l ankle On her right ankle, she rolled her right ankle back on January 05. She never went to see anyone for the pain until later in the summer. She had xrays that were negative. She still has cramping. She does nothing for the pain On her left ankle, she feels that her left ankle is catching and popping. She does report some soreness with continued activity. PAIN EVALUATION 05/28/2024 0919 06/04/2024 0839 Pain Level: 4 2 Pain Location: Ankle-Left -- right and left foot Description: Aching;Sore;Stiffness Aching;Cramping;Tightness Duration Units: Weeks Months Frequency: Intermittent Continuous Intervention/Comfort measure: Cold -- No results found for: HBA1C PCP: Justyna Colunga CNP PAST MEDICAL HISTORY Diagnosis Date EDS (Donte-Danlos syndrome) GERD (gastroesophageal reflux disease) Hypothyroidism Obesity, Class II, BMI 35-39.9 Current Outpatient Medications Medication Sig acetaminophen (ACETAMINOPHEN EXTRA STRENGTH) 500 mg tablet Take 1 tablet every 4 to 6 hours as needed for pain ibuprofen (MOTRIN) 600 mg tablet Take 1 tablet every 6 o 8 hours as needed for pain or swelling CARD MAKER THYROID 120 mg tablet Take 120 mg by mouth once daily. thyroid (CARD MAKER THYROID) 15 mg tablet Take 15 mg by mouth once daily. Total 135 mg daily No current facility-administered medications for this visit. ALLERGIES No Known Allergies PAST SURGICAL HISTORY Procedure Laterality Date PAST SURGICAL HISTORY OF Left 2017 knee ACL PAST SURGICAL HISTORY OF Left breast lumpectomy PAST SURGICAL HISTORY OF Right breast lumpectomy FAMILY HISTORY Problem Relation Age of Onset No Known Problems Mother Hypertension Father No Known Problems Sister No Known Problems Sister Diabetes Maternal Grandmother Dementia Maternal Grandfather Parkinson's Maternal Grandfather Heart Attack Maternal Grandfather Anesthesia Problems No Family History Social History Tobacco Use Smoking status: Never Smokeless tobacco: Never Vaping Use Vaping status: Never Used Substance Use Topics Alcohol use: Never Drug use: Never REVIEW OF SYSTEMS GENERAL: Negative for Malaise, significant weight loss, fever RESPIRATORY: Negative for cough, wheezing and shortness of breath CARDIOVASCULAR: Negative for chest pain, leg swelling and palpitations GI: Negative for abdominal discomfort, blood in stools or black stools and change in bowel habits : Negative for dysuria, frequency and incontinence MUSCULOSKELETAL: Negative for joint pain or swelling, back pain, and muscle pain. SKIN: Negative for lesions, rash, and itching. HEMATOLOGY/LYMPHOLOGY Negative for prolonged bleeding, bruising easily, and swollen nodes. ENDOCRINE: Negative for cold or heat intolerance, polyuria, polydipsia and goiter. NEURO: negative Physical Exam: Constitutional: Pt is a well developed 29 year old female who is alert, oriented and cooperative Eyes: Following during examination. No redness or drainage. Respiratory: RR normal and nonlabored. Even breathing. No evidence of distress or shortness of breath. Psychology: Patient is engaged during conversation. Normal affect and mood. Does not appear depressed or anxious during encounter. Vascular: Dorsalis pedis and posterior tibial pulses palpable as b/l Capillary Fill time < 5 seconds to digits 1-5 b/l Skin temperature warm to warm proximal to distal b/l Hair growth present to digits Neurological: intact light touch/epicritic sensation b/l intact protective sensation no significant neurological deficits Dermatological: Nails 1-5 b/l appear normal. Webspaces clean and dry 1-4 b/l. Skin appears well hydrated and supple. good color, texture, turgor. No open lesions present. No callosities present. Musculoskeletal/Orthopaedic : Patient has pain to palpation of right lateral ankle. 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 MTJ, STJ are full and free of pain and crepitus. +5/5 muscle strength dorsiflexion, plantarflexion, inversion, eversion b/l No laxity with anterior drawer No subluxing peroneal (more content not included)... Normal [facility] CNTHERAPYon 05-31-2024 CNTHERAPY OT/PT/Speech Visit (PTNEWPHIL) RERE KNUTSON ([id number]) 1995 F Date Time Provider Department 05/31/24 8:45 AM [facility] Date Time Provider Department Center 05/31/2024 8:45 AM [id number] [facility] Reason for Visit: Physical Therapy [503] Primary Visit Diagnosis:Chronic pain of left knee [M25.562, G89.29] Allergies As of Date: 05/31/2024 (No Known Allergies) Date Reviewed: 05/07/2024 Reviewed by: Nelly Baxter LPN - Fully Assessed Prescriptions as of 05/31/2024 - acetaminophen (ACETAMINOPHEN EXTRA STRENGTH) 500 mg tablet Take 1 tablet every 4 to 6 hours as needed for pain - ibuprofen (MOTRIN) 600 mg tablet Take 1 tablet every 6 o 8 hours as needed for pain or swelling - CARD MAKER THYROID 120 mg tablet Take 120 mg by mouth once daily. - thyroid (CARD MAKER THYROID) 15 mg tablet Take 15 mg by mouth once daily. Total 135 mg daily Normal [facility] CNTHERAPYon 05-28-2024 CNTHERAPY OT/PT/Speech Visit (PTNEWPHIL) RERE KNUTSON ([id number]) 1995 F Date Time Provider Department 05/28/24 2:30 PM RAJINDER [facility] Date Time Provider Department Center 05/28/2024 2:30 PM [id number] [facility] Reason for Visit: Physical Therapy [503] Primary Visit Diagnosis:Chronic pain of left knee [M25.562, G89.29] Allergies As of Date: 05/28/2024 (No Known Allergies) Date Reviewed: 05/07/2024 Reviewed by: Nelly Baxter LPN - Fully Assessed Prescriptions as of 05/28/2024 - acetaminophen (ACETAMINOPHEN EXTRA STRENGTH) 500 mg tablet Take 1 tablet every 4 to 6 hours as needed for pain - ibuprofen (MOTRIN) 600 mg tablet Take 1 tablet every 6 o 8 hours as needed for pain or swelling - CARD MAKER THYROID 120 mg tablet Take 120 mg by mouth once daily. - thyroid (CARD MAKER THYROID) 15 mg tablet Take 15 mg by mouth once daily. Total 135 mg daily Normal [facility] [id number] 05-23-2024 [id number] O ID: [id number] Author: SAMUEL VELASQUEZ PT Service: ? Author Type: Physical Therapist Type: [id number] Filed: 05/23/2024 15:21 Note Text: [facility] Physical Therapy Plan of Care Certification Patient Name: Rere Knutson : 1995 [facility] #: [id number] Date: 05/23/2024 To: Paula Fitzgerald PA-C From Therapist: Samuel Velasquez PT RE: Patient Certification/ Recertification Your review, approval and electronic signature are required in order to comply with Payor: [place] [employer]ICA[employer] / Plan: [facility] MEDICAID / Product Type: Medicaid / regulations. The identified Physical Therapy PLAN OF CARE for the patient is as follows: M25.562, G89.29 Chronic pain of left knee (primary encounter diagnosis) PLAN OF CARE UPDATE: Assessment: Rere Knutson demonstrates moderate improvement in walking, lifting, physical activities, recreational activities, and squatting. The patient has progressed toward goals. Patient continues to present with impairments in balance, overall function, range of motion, strength, and symptom management that interfere with . Current prognosis is Excellent due to: current objective clinical presentation, good overall health status, positive past response to therapy . The patient will benefit from continued skilled therapy services to meet the updated goals for this plan of care as noted below. Goals for Episode of Care: established 04/29/24 [place] in home exercise program. Goal met: 05/23/24 Patient will decrease pain to 0/10 at rest and with functional activities to allow patient to improve ambulation and standing tolerance for ADLs. Progressin05/23/24 Patient will increase active ROM of L knee flexion to 140 to match the opposite extremity to allow pt to to improve postural alignment, to improve performance of ADLs, to improve gait mechanics / gait pattern , and to decrease falls risks . Patient will demonstrate increase in LLE strength to 5/5 during manual muscle testing in order to improve function for home management tasks, leisure / recreation skills, light functional tasks, moderate to heavy functional tasks, prior functional tasks, and work tasks. Progressin05/23/24 Pt will improve postural awareness to allow FWB through LLE. Progressin05/23/24 Pt will increase her ability to perform a minisquat with FWB through both extremities. Progressin05/23/24 Pt will improve semi-tandem, tandem, and L single leg stance during the 4 stage balance test to decrease risk for falls. Goal met: 05/23/24 Patient Goals: Decrease pain and strengthen L knee to be able to climb stairs normally and return to sports in her freetime Time Frame for Goals and Treatment : 06/20/24 Planned Interventions, Frequency, and Duration: 2x/week, 4 weeks Total Number of Visits Planned: 68 Patient to be seen for Therapeutic exercise (29179), Neuromuscular re-education (19825), Manual therapy (05707), Therapeutic activities (25948), Gait Training (09113), Functional training, Vasopneumatic Treatment (76858) PLAN FOR NEXT VISIT: continue progressionof L knee in CKC phase and single leg stability with various balance exercises For further details regarding this patient refer to the Physical Therapy electronically documented visit dated 05/23/2024. Provider Attestation I have reviewed the treatment plan for Rere Wili Knutson, [facility]# [id number] for the period of 04/29/24 -- 06/20/24, established on 05/23/2024. Signature certifies the need for therapy services. [facility] CNTHERAPYon 05-23-2024 CNTHERAPY OT/PT/Speech Visit (PTNEWPHIL) RERE KNUTSON ([id number]) 1995 F Date Time Provider Department 05/23/24 2:30 PM SAMUEL VELASQUEZ [facility] Date Time Provider Department Center 05/23/2024 2:30 PM [id number], WILLIAM [facility] Reason for Visit: PT Progress Note [1596] Physical Therapy [503] Primary Visit Diagnosis:Chronic pain of left knee [M25.562, G89.29] Allergies As of Date: 05/23/2024 (No Known Allergies) Date Reviewed: 05/07/2024 Reviewed by: Nelly Baxter LPN - Fully Assessed Prescriptions as of 05/23/2024 - acetaminophen (ACETAMINOPHEN EXTRA STRENGTH) 500 mg tablet Take 1 tablet every 4 to 6 hours as needed for pain - ibuprofen (MOTRIN) 600 mg tablet Take 1 tablet every 6 o 8 hours as needed for pain or swelling - CARD MAKER THYROID 120 mg tablet Take 120 mg by mouth once daily. - thyroid (CARD MAKER THYROID) 15 mg tablet Take 15 mg by mouth once daily. Total 135 mg daily [facility] CNTHERAPY OT/PT/Speech Visit (PTNEWPHIL) RERE KNUTSON ([id number]) 1995 F Date Time Provider Department 05/21/24 2:30 PM [facility] Date Time Provider Department Center 05/21/2024 2:30 PM [id number] MARKS [facility] P Reason for Visit: Physical Therapy [503] Primary Visit Diagnosis:Chronic pain of left knee [M25.562, G89.29] Allergies As of Date: 05/21/2024 (No Known Allergies) Date Reviewed: 05/07/2024 Reviewed by: Nelly Baxter LPN - Fully Assessed Prescriptions as of 05/21/2024 - acetaminophen (ACETAMINOPHEN EXTRA STRENGTH) 500 mg tablet Take 1 tablet every 4 to 6 hours as needed for pain - ibuprofen (MOTRIN) 600 mg tablet Take 1 tablet every 6 o 8 hours as needed for pain or swelling - CARD MAKER THYROID 120 mg tablet Take 120 mg by mouth once daily. - thyroid (CARD MAKER THYROID) 15 mg tablet Take 15 mg by mouth once daily. Total 135 mg daily [facility] CNTHERAPYon 05-16-2024 CNTHERAPY OT/PT/Speech Visit (PTNEWPHIL) RERE KNUTSON ([id number]) 1995 F Date Time Provider Department 05/16/24 2:30 PM SAMUEL VELASQUEZ Date Time Provider Department Center 05/16/2024 2:30 PM [id number] MARKS [facility] P Reason for Visit: Physical Therapy [503] Primary Visit Diagnosis:Chronic pain of left knee [M25.562, G89.29] Allergies As of Date: 05/16/2024 (No Known Allergies) Date Reviewed: 05/07/2024 Reviewed by: Nelly Baxter LPN - Fully Assessed Prescriptions as of 05/16/2024 - acetaminophen (ACETAMINOPHEN EXTRA STRENGTH) 500 mg tablet Take 1 tablet every 4 to 6 hours as needed for pain - ibuprofen (MOTRIN) 600 mg tablet Take 1 tablet every 6 o 8 hours as needed for pain or swelling - CARD MAKER THYROID 120 mg tablet Take 120 mg by mouth once daily. - thyroid (CARD MAKER THYROID) 15 mg tablet Take 15 mg by mouth once daily. Total 135 mg daily [facility] CNTHERAPYon 05-09-2024 [facility] R[facility] KNUT[facility] ([id number]) 1995 F Date Time Provider Department 05/09/24 2:30 PM SAMUEL VELASQUEZ [facility] Date Time Provider Department Center 05/09/2024 2:30 PM [id number], WILLIAM [facility] Reason for Visit: Physical Therapy [503] Primary Visit Diagnosis:Chronic pain of left knee [M25.562, G89.29] Allergies As of Date: 05/09/2024 (No Known Allergies) Date Reviewed: 05/07/2024 Reviewed by: Nelly Baxter LPN - Fully Assessed Prescriptions as of 05/09/2024 - acetaminophen (ACETAMINOPHEN EXTRA STRENGTH) 500 mg tablet Take 1 tablet every 4 to 6 hours as needed for pain - ibuprofen (MOTRIN) 600 mg tablet Take 1 tablet every 6 o 8 hours as needed for pain or swelling - CARD MAKER THYROID 120 mg tablet Take 120 mg by mouth once daily. - thyroid (CARD MAKER THYROID) 15 mg tablet Take 15 mg by mouth once daily. Total 135 mg daily Normal [facility] CNOVon 05-07-2024 CNOV Office Visit (SPHTB) RERE KNUTSON ([id number]) 1995 F Date Time Provider Department 05/07/24 9:30 AM PAULA FITZGERALD SPHTB During your visit today, we recorded the following information about you: Paula Fitzgerald PA-C 05/14/2024 7:14 AM Signed Post Op Follow Up Visit Rere Knutson returns 19 days s/p Left knee diagnostic arthroscopy. 2.Debridement of ACL scar. 3.Removal of painful tibial screw. DOS: 04/18/24 Has been progressing well in regard to knee. Reports popping left PAIN EVALUATION 05/07/2024 0917 Pain Level: 5 5 at its worse after walking Pain Location: Knee-Left Description: Aching;Dull;Tightness Duration Amount of Time: 2.5 Duration Units: Weeks Frequency: Intermittent Intervention/Comfort measure: Cold;Relaxation;Exercise elevating, PT Weight bearing: full Physical therapy going well Review of Symptoms: General: no fevers, chills, nausea/vomiting, malaise CV: No chest pain, no calf pain or redness Pulm: No shortness of breath GI: No nausea, vomiting or constipation HEENT: No head ache Physical Examination: This is a well appearing, well nourished patient in no acute distress. Breathes easily and has normal chest wall excursion. Affect is normal. Left knee: Sutures removed without incident. Re enforced with steri strips Incisions are healing well with no erythema, drainage, induration. There are no signs of infection Effusion: trace Patellar Mobility: 1.5 quadrant medial, lateral, inferior, superior Palpation: mild medial joint line tenderness ROM: 0 extension, 110 flexion SLR: no lag Quad: symmetric tone Bilateral calves supple, non-tender. No palpable cords 5/5 strength resisted PF, DF, EHL Impression: 19 days s/p left knee scope removal tibial interference screw. No evidence of infection or DVT Left ankle snapping Plan: Discussed Intra operative and post operative course and expectations discussed. Arthroscopy pictures reviewed Advance PT per guidelines. Precautions discussed Re enforced importance of obtaining and maintaining full extension Wound Care: May get incisions wet in the shower. Avoid hot tub, bath tub or pool, until at least 3 weeks post op and incisions well healed. Follow-up: 4 weeks RAMEZ Valenzuela Judith, LPN 05/14/2024 7:14 AM Signed Sutures removed from incisions to left knee without difficulty. No redness, no drainage noted. New steri strips applied. Paula Fitzgerald PA-C 05/07/2024 9:49 AM Signed May get incisions wet in the shower, by allowing the water to run over them. Avoid scrubbing incisions. Avoid soaking your leg in a hot tub, bath tub or pool until you are at least 3 weeks post op and incisions well healed. Do not apply lotions or ointments to your incisions until you are 3 weeks post op and incisions are well healed. No high impact - progress low impact activity per tolerance Allergies As of Date: 05/07/2024 (No Known Allergies) Date Reviewed: 05/07/2024 Reviewed by: Nelly Baxter LPN - Fully Assessed Reason for Visit: Post Op [174] Primary Visit Diagnosis:Acute left ankle pain [M25.572] Other Visit Diagnosis:Chronic pain of right ankle [M25.571, G89.29] Order(s):XR ANKLE GENERAL 3V AP/LAT/OBL LEFT [4547513] Order #: [id number] FUTURE CONSULT PANEL TO ORTHOPAEDICS [615055] Order #: [id number]: 1 FUTURE XR ANKLE GENERAL 3V AP/LAT/OBL RIGHT [[id number]] Order #: [id number] FUTURE CONSULT TO PHYSICAL THERAPY [9217] Order #: [id number]: 1 FUTURE Prescriptions as of 05/14/2024 - acetaminophen (ACETAMINOPHEN EXTRA STRENGTH) 500 mg tablet Take 1 tablet every 4 to 6 hours as needed for pain - ibuprofen (MOTRIN) 600 mg tablet Take 1 tablet every 6 o 8 hours as needed for pain or swelling - CARD MAKER THYROID 120 mg tablet Take 120 mg by mouth once daily. - thyroid (CARD MAKER THYROID) 15 mg tablet Take 15 mg by mouth once daily. 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 Avoid scrubbing incisions. Avoid soaking your leg in a hot tub, bath tub or pool until you are at least 3 weeks post op and incisions well healed. Do not apply lotions or ointments to your incisions until you are 3 weeks post op and incisions are well healed. No high impact - progress low impact activity per tolerance Encounter Status:Closed by PAULA FITZGERALD on 05/14/24 Normal [facility] XR ANKLE 3V AP/LAT/OBL LTon 05-07-2024 XR ANKLE 3V AP/LAT/OBL LT * * *Final Report* * * DATE OF EXAM: May 07 2024 10:01AM SHX 5298 - XR ANKLE 3V AP/LAT/OBL LT / PROCEDURE REASON: Acute left ankle pain * * * * Physician Interpretation * * * * EXAMINATION / TECHNIQUE: XR ANKLE 3V AP/LAT/OBL LT PATIENT/TECHNOLOGIST PROVIDED HISTORY: PT STATES LEFT ANKLE PAIN SINCE KNEE SURGERY. PAIN IS THROUGH DORSAL ASPECT OF FOOT AND INTO LATERAL ANKLE. CLINICAL INFORMATION ( PROVIDED BY ORDERING CLINICIAN) : Acute left ankle pain COMPARISON: None RESULT: The joint spaces are well-maintained with no acute fracture and/or dislocation. IMPRESSION: No acute osseous abnormality. Veterinary Milk Specialist: JIN Transcribe Date/Time: May 07 2024 10:02A Dictated by : BLADE HARRIS MD This examination was interpreted and the report reviewed and electronically signed by: ANATOLY MCCORMICK MD on May 07 2024 12:09PM EST [id number] Normal [facility] XR Ankle - left AP and Later al and obliqueon 05-07-2024 IMPRESSION: No acute osseous abnormality. Veterinary Milk Specialist: PSCB Transcribe Date/Time: May 07 2024 10:02A Dictated by : BLADE HARRIS MD This examination was interpreted and the report reviewed and electronically signed by: ANATOLY MCCORMICK MD on May 07 2024 12:09PM EST DIVISION OF RADIOLOGY * * *Final Report* * * DATE OF EXAM: May 07 2024 10:01AM SHX 5298 - XR ANKLE 3V AP/LAT/OBL LT / PROCEDURE REASON: Acute left ankle pain * * * * Physician Interpretation * * * * EXAMINATION / TECHNIQUE: XR ANKLE 3V AP/LAT/OBL LT PATIENT/TECHNOLOGIST PROVIDED HISTORY: PT STATES LEFT ANKLE PAIN SINCE KNEE SURGERY. PAIN IS THROUGH DORSAL ASPECT OF FOOT AND INTO LATERAL ANKLE. CLINICAL INFORMATION ( PROVIDED BY ORDERING CLINICIAN) : Acute left ankle pain COMPARISON: None RESULT: The joint spaces are well-maintained with no acute fracture and/or dislocation. DIVISION OF RADIOLOGY [facility], [facility]/07/[facility]24 * * *Final Report* * * DATE OF EXAM: May 07 2024 10:01AM SHX 5298 - XR ANKLE 3V AP/LAT/OBL LT / PROCEDURE REASON: Acute left ankle pain * * * * Physician Interpretation * * * * EXAMINATION / TECHNIQUE: XR ANKLE 3V AP/LAT/OBL LT PATIENT/TECHNOLOGIST PROVIDED HISTORY: PT STATES LEFT ANKLE PAIN SINCE KNEE SURGERY. PAIN IS THROUGH DORSAL ASPECT OF FOOT AND INTO LATERAL ANKLE. CLINICAL INFORMATION ( PROVIDED BY ORDERING CLINICIAN) : Acute left ankle pain COMPARISON: None RESULT: The joint spaces are well-maintained with no acute fracture and/or dislocation. IMPRESSION IMPRESSION: No acute osseous abnormality. Veterinary Milk Specialist[facility] Transcribe Date/Time: May 07 2024 10:02A Dictated by : BLADE HARRIS MD This examination was interpreted and the report reviewed and electronically signed by: ANATOLY MCCORMICK MD on May 07 2024 12:09PM EST [facility] Radiology Study observation (narrative) [facility] XR Ankle - left AP and Later al and obliqueOrdered By: Cc Provider on 05-07-2024 [facility] CNTHERAPYon 05-06-2024 CNTHERAPY OT/PT/Speech Visit (PTNEWPHIL) RERE KNUTSON ([id number]) 1995 F Date Time Provider Department 05/06/24 2:45 PM KENDRA HOUSER Date Time Provider Department Center 05/06/2024 2:45 [id number] Reason for Visit: Physical Therapy [503] Primary Visit Diagnosis:Chronic pain of left knee [M25.562, G89.29] Allergies As of Date: 05/06/2024 (No Known Allergies) Date Reviewed: 04/18/2024 Reviewed by: Cassi Church, RN - Fully Assessed Prescriptions as of 05/06/2024 - acetaminophen (ACETAMINOPHEN EXTRA STRENGTH) 500 mg tablet Take 1 tablet every 4 to 6 hours as needed for pain - ibuprofen (MOTRIN) 600 mg tablet Take 1 tablet every 6 o 8 hours as needed for pain or swelling - CARD MAKER THYROID 120 mg tablet Take 120 mg by mouth once daily. - thyroid (CARD MAKER THYROID) 15 mg tablet Take 15 mg by mouth once daily. Total 135 mg daily [facility] CNTHERAPYon 05-02-2024 CNTHERAPY OT/PT/Speech Visit (PTNEWPHIL) RERE KNUTSON ([id number]) 1995 F Date Time Provider Department 05/02/24 2:45 PM LUZ QUIJANO [facility] Date Time Provider Department Center 05/02/2024 2:45 PM [id number] QUIJANO*[facility] P Reason for Visit: Physical Therapy [503] Primary Visit Diagnosis:Chronic pain of left knee [M25.562, G89.29] Allergies As of Date: 05/02/2024 (No Known Allergies) Date Reviewed: 04/18/2024 Reviewed by: Cassi Church RN - Fully Assessed Prescriptions as of 05/02/2024 - acetaminophen (ACETAMINOPHEN EXTRA STRENGTH) 500 mg tablet Take 1 tablet every 4 to 6 hours as needed for pain - ibuprofen (MOTRIN) 600 mg tablet Take 1 tablet every 6 o 8 hours as needed for pain or swelling - CARD MAKER THYROID 120 mg tablet Take 120 mg by mouth once daily. - thyroid (CARD MAKER THYROID) 15 mg tablet Take 15 mg by mouth once daily. Total 135 mg daily Information Systems Security Manager: Addendum Therapy (PT/OT/Speech/Resp) ID: [id number] 05/02/2024 7:01 PM Author: LUZ QUIJANO Signed by LUZ QUIJANO SPEECH/LANGUAGE THERAPIST on 05/02/2024 at 7:02 PM * * * This document replaces document [id number] * * * Document text: Program_ID:[id number] Access Code: [email or web address] URL: [email or web address] Date: 05-02-2024 Prepared By: LUZ QUIJANO Program Notes Exercises - Supine Quad Set - 1 x daily - 5 x weekly - 1-3 sets - 10 reps - Active Straight Leg Raise with Quad Set - 1 x daily - 5 x weekly - 1-3 sets - 10 reps - Sidelying Hip Adduction - 1 x daily - 5 x weekly - 3 sets - 10 reps - Sidelying Hip Abduction - 1 x daily - 7 x weekly - 3 sets - 10 reps - Hip Extension with Leg Straight - 1 x daily - 7 x weekly - 3 sets - 10 reps - Supine Heel Slide - 1 x daily - 7 x weekly - 1-3 sets - 10 reps [facility] THERAPY NTon 05-02-2024 THERAPY NT HNO ID: [id number] Author: LUZ QUIJANO PTA Service: ? Author Type: Medical Record Retrieval Specialist Type: Therapy (PT/OT/Speech/Resp) Filed: 05/02/2024 19:02 Note Text: Program_ID:[id number] Access Code: [email or web address] URL: [email or web address] Date: 05-02-2024 Prepared By: LUZ QUIJANO Program Notes Exercises - Supine Quad Set - 1 x daily - 5 x weekly - 1-3 sets - 10 reps - Active Straight Leg Raise with Quad Set - 1 x daily - 5 x weekly - 1-3 sets - 10 reps - Sidelying Hip Adduction - 1 x daily - 5 x weekly - 3 sets - 10 reps - Sidelying Hip Abduction - 1 x daily - 7 x weekly - 3 sets - 10 reps - Hip Extension with Leg Straight - 1 x daily - 7 x weekly - 3 sets - 10 reps - Supine Heel Slide - 1 x daily - 7 x weekly - 1-3 sets - 10 reps [facility] [id number] 04-29-2024 [id number] HNO ID: [id number] Author: SAMUEL VELASQUEZ PT Service: ? Author Type: Physical Therapist Type: [id number] Filed: 04/29/2024 17:47 Note Text: [facility] Therapy Physical Therapy Plan of Care Certification Patient Name: Rere Knutson : 1995 [facility] #: [id number] Date: 04/29/2024 To: Paula Fitzgerald PA-C From Therapist: Samuel Velasquez PT RE: Patient Certification/ Recertification Your review, approval and electronic signature are required in order to comply with Payor: [place] MEDICAID / Plan: [place] [facility] MEDICAID / Product Type: Medicaid / regulations. The identified Physical Therapy PLAN OF CARE for the patient is as follows: M25.562, G89.29 Chronic pain of left knee PLAN OF CARE: Assessment: Rere Knutson presents with chief complaint of L knee pain following arthroscopic surgery w/ ACL removal of screw that interferes with walking, stair negotiation, physical activities, recreational activities, working, squatting, kneeling (worse in morning or evening stiff/sore with lack of movement) . She presents with impairments in balance, flexibility, gait, independence in exercise, joint mobility, overall function, and range of motion. PROMIS? (Patient-Reported Outcomes Measurement Information System) scores were reviewed and identified as within normal limits. Prognosis for therapy is Excellent due to: current objective clinical presentation, good overall health status, positive past response to therapy . She will benefit from skilled therapy services to meet the goals established for this plan of care as noted below. Goals for Episode of Care: established 04/29/24 [place] in home exercise program. Patient will decrease pain to 0/10 at rest and with functional activities to allow patient to improve ambulation and standing tolerance for ADLs. Patient will increase active ROM of L knee flexion to 140 to match the opposite extremity to allow pt to to improve postural alignment, to improve performance of ADLs, to improve gait mechanics / gait pattern , and to decrease falls risks . Patient will demonstrate increase in LLE strength to 5/5 during manual muscle testing in order to improve function for home management tasks, leisure / recreation skills, light functional tasks, moderate to heavy functional tasks, prior functional tasks, and work tasks. Pt will improve postural awareness to allow FWB through LLE. Pt will increase her ability to perform 10/10 minisquats with FWB through both extremities to reflect improved functional strength. Pt will improve semi-tandem, tandem, and L single leg stance during the 4 stage balance test to decrease risk for falls. Patient Goals: Decrease pain and strengthen L knee to be able to climb stairs normally and return to sports in her freetime Time Frame for Goals and Treatment : 06/10/24 Planned Interventions, Frequency, and Duration: Current Frequency: 2x/week Duration: 6 weeks Total Number of Visits Planned: 12 Planned Treatment Interventions: Therapeutic exercise (30630), Neuromuscular re-education (69930), Manual therapy (95313), Therapeutic activities (62496), Gait Training (03734), Functional training, Vasopneumatic Treatment (24430) PLAN FOR NEXT VISIT: Start L knee ROM and strengthening and LLE balance and proprioception. Promote full quad strength for TKE. Patient demonstrates good understanding of plan of care and treatment. The above goals and plan of care were discussed and agreed upon by patient/family. For further details regarding this patient refer to the Physical Therapy electronically documented visit dated 04/29/2024. Provider Attestation I have reviewed the treatment plan for Rere Wili Knutson, [facility]# [id number] for the period of 04/29/24 -- 06/10/24, established on 04/29/2024. Signature certifies the need for therapy services. [facility] CNTHERAPYon 04-29-2024 CNTHERAPY OT/PT/Speech Visit (PTNEWPHIL) RERE KNUTSON ([id number]) 1995 F Date Time Provider Department 04/29/24 3:00 PM [facility] Date Time Provider Department Center 04/29/2024 3:00 PM [id number], WILLIAM [facility] P Reason for Visit: PT Eval [747] Visit Diagnosis:Chronic pain of left knee [M25.562, G89.29] Allergies As of Date: 04/29/2024 (No Known Allergies) Date Reviewed: 04/18/2024 Reviewed by: Cassi Church RN - Fully Assessed Prescriptions as of 04/29/2024 - acetaminophen (ACETAMINOPHEN EXTRA STRENGTH) 500 mg tablet Take 1 tablet every 4 to 6 hours as needed for pain - ibuprofen (MOTRIN) 600 mg tablet Take 1 tablet every 6 o 8 hours as needed for pain or swelling - CARD MAKER THYROID 120 mg tablet Take 120 mg by mouth once daily. - thyroid (CARD MAKER THYROID) 15 mg tablet Take 15 mg by mouth once daily. Total 135 mg daily [facility] ANES POSTPROC EVALon 024 ANES POSTPROC EVAL HNO ID: [id number] Author: CLOVIS VELAZQUEZ MD Service: Anesthesiology Author Type: Anesthesiologist Type: Anesthesia Postprocedure Evaluation Filed: 04/18/2024 16:08 Note Text: POST ANESTHESIA EVALUATION NOTE : 1995 Procedure Summary Date: 04/18/24 Room / Location: [place] [address] / [facility] Anesthesia Start: 1402 Anesthesia Stop: 1517 Procedure: ARTHROSCOPY KNEE REMOVAL OF LOOSE OR FOREIGN BODY BILATERAL (Left: Knee) Diagnosis: Chronic pain of left knee (Chronic pain of left knee [M25.562, G89.29]) Surgeons: Dionicio Vaca MD Responsible Provider: Clovis Velazquez MD Anesthesia Type: general ASA Status: 3 Anesthesia Type: general Airway Type: LMA Last Vitals Vitals Value Taken Time BP 107/66 04/18/24 1600 Temp 36.3 ?C (97.3 ?F) 04/18/24 1545 HR SpO2 72 04/18/24 1608 Resp 16 04/18/24 1608 SpO2 96 % 04/18/24 1608 Vitals shown include unfiled device data. Post Anesthesia Patient Status Patient Evaluation: PACU. PACU/ICU Patient Condition: stable. Anticipated Disposition: phase 2 then home. Neurological Status: aware and responsive. Pulmonary Status: breathing comfortably on room air Airway Control: returned to baseline unsupported. Cardiovascular Status: stable. Pain Management: clinically adequate - multimodal analgesia pain management approach Postoperative Hydration: acceptable. Intraoperative Events: no significant anesthesia events Recommendation: continue current plan of care. Anesthesia Observations No Documentation SIGNATURE: Clovis Velazquez MD PATIENT NAME: Rere Knutson DATE: April 18, 2024 TIME: 4:08 PM CSN: [id number] [facility] ANES PRE-OPon 04-18-2024 ANES PRE-OP HNO ID: [id number] Author: SUSAN PAZ MD Service: Anesthesiology Author Type: Anesthesiologist Type: Anesthesia Preprocedure Evaluation Filed: 04/18/2024 13:14 Note Text: ANESTHESIOLOGY DAY OF SURGERY NOTE : 1995 Procedure Information Date/Time: 04/18/24 1500 Procedure: ARTHROSCOPY KNEE REMOVAL OF LOOSE OR FOREIGN BODY BILATERAL (Left: Knee) - Left knee arthroscopy - removal of hardware Location: [facility] Surgeons: Dionicio Vaca MD Estimated body mass index is 39.16 kg/m? as calculated from the following: Height as of 04/11/24: 170.2 cm (5' 7). Weight as of 04/11/24: 113.4 kg (250 lb). Most recent hematocrit and potassium results: No results found for this basename: HCT,HEMATOCRIT,K,POTASSIUM Relevant Problems No relevant active problems I - PHYSICAL EVALUATION AIRWAY Patient intubated: No. Tracheostomy tube not present Mallampati: III. TM distance: >3 FB. Neck ROM: full ROM without neurological symptoms. Mouth opening: adequate. Short neck: no. Thick neck: yes DENTAL Dental findings: teeth intact. Additional exam findings: no II - ANESTHESIA PLAN ASA Score: 3 Anesthetic Plan: general Airway type: LMA NPO Status: adequate Beta Sharda Monitoring Plan Monitoring plan: Standard ASA. Post Procedure Analgesic Plan Postoperative analgesic plan: parenteral or oral opioids and multimodal analgesia. Informed Consent Anesthetic risks, benefits, alternatives and personnel discussed. Consent obtained from: patient. Anesthetic risks, benefits, alternatives, personnel and consent discussed: yes. Patient / Responsible Constitution Party agrees to proceed: yes Patient / Surrogate agrees to blood products: yes DNR status not reviewed with patient and/or family prior to surgery. Significant changes in the patient condition since the History and Physical, not otherwise documented in primary service progress note: no. Potential Anesthesia issues that may suggest increased risk of complications or contraindication to planned procedure: none. No vitals data found for the desired time range. Facility-Administered Medications as of 04/18/2024 Medication Dose Route Frequency lidocaine 10 mg/mL (1 %) 1-2 mg injection (XYLOCAINE) 0.1-0.2 mL INTRADERMAL PRN lactated ringers iv infusion 5-30 mL/hr INTRAVENOUS CONTINUOUS NaCl 0.9% iv flush bag 20 mL INTRAVENOUS PRN ceFAZolin iv piggyback 2 g in D5W (iso-osmotic) 100 mL (ANCEF) 2 g INTRAVENOUS Pre-Op Once Outpatient Medications as of 04/18/2024 Medication Sig CARD MAKER THYROID 120 mg tablet Take 120 mg by mouth once daily. thyroid (CARD MAKER THYROID) 15 mg tablet Take 15 mg by mouth once daily. Total 135 mg daily I have interviewed and examined the patient. I have reviewed the medical record and/or the pre-anesthesia evaluation, pertinent labs, and test results. This contains updated information obtained within 48 hours of Surgery/Procedure. SIGNATURE: Susan Paz MD PATIENT NAME: Rere Knutson DATE: April 18, 2024 TIME: 1:14 PM CSN: [id number] [facility] BRIEF OP NOTon 04-18-2024 BRIEF OP NOT HNO ID: [id number] Author: JOSS ANEGLO MD Service: Orthopaedic Surgery Author Type: Resident Type: Brief Op Note Filed: 04/18/2024 15:11 Note Text: BRIEF OP NOTE LOG ID: [id number] Surgery/Procedure Date: 04/18/2024 Incision/Procedure Start Time: 2:25 PM Incision Close/Procedure End Time: 3:06 PM Surgeon(s)/Proceduralist(s) and Maintenance Helper(s): Surgeons and Role: * Dionicio Vaca MD - Primary * Joss Angelo MD - Resident - Assisting Procedure(s): Left knee diagnostic arthroscopy, Left tibia removal of hardware Anesthesia: General Estimated Blood Loss: 10 mls Specimens: ID Type Source Tests Collected by Time Destination A : left knee hardware Implant/Device/Foreign Body Hardware/Device/Foreign Body SURGICAL PATHOLOGY Dionicio Vaca MD 04/18/2024 2:43 PM Complications: None Pre-Op/Pre-Procedure Diagnosis: Left knee hardware irritation. Post-Op/Post-Procedure Diagnosis: Same Post-op Plan: Abx: periop ancef VTE Prophylaxis: scds. 81mg aspirin BID Weightbearing: Weight bearing as tolerated left lower extremity Plan of care discussed with: Provider, RN, Patient. SIGNATURE: Joss Angelo MD PATIENT NAME: Rere Knutson DATE: April 18, 2024 TIME: 3:09 PM PAGER/CONTACT #: [phone] [facility] HISTORY PHYSICALon HISTORY PHYSICAL HNO ID: [id number] Author: DIONICIO VACA MD Service: Orthopaedic Surgery Author Type: Physician Type: H&P Filed: 04/18/2024 14:00 Note Text: UPDATED HISTORY AND PHYSICAL EXAMINATION SERVICE DATE: 04/18/2024 SERVICE TIME: 1355 PHYSICAL EXAM MUST BE COMPLETED ON ADMISSION The History and Physical (completed in the past 30 days) has been reviewed and the patient has been examined. The contents accurately reflect the patient's condition with the following additions or revisions since the HANDP was completed. Examination indicates no changes. This HANDP can be found in the Electronic Medical Record dated 04/11/24. SIGNATURE: Dionicio Vaca MD PATIENT NAME: Rere Knutson DATE: April 18, 2024 TIME: 1:59 PM [facility] NURSING PROGon 04-18-2024 NURSING PROG HNO ID: [id number] Author: CASSI CHURCH RN Service: ? Author Type: Registered Nurse Type: Nursing Progress Note Filed: 04/18/2024 15:36 Note Text: POST OP LEARNING RESPONSE INSTRUCTION PROVIDED TO: Patient and Mother METHOD OF INSTRUCTION: Written instruction/Handouts Verbal instruction PATIENT / FAMILY RESPONSE: Verbalizes understanding of: INFECTION MANAGEMENT-Signs and symptoms of an infection and importance of contacting the physician MEDICAL REGIMEN-Importance of following prescribed medical regimen MEDICATION DOSE MISSED-Correct action to take if medication dose is missed MEDICATION PRESCRIBED-Accurate knowledge of prescribed medication prior to discharge MEDICATION ROUTE-Correct route for administration of the prescribed medication MEDICATION SIDE EFFECTS-Side effects associated with the medication that warrant a call to the physician PAIN MANAGEMENT-Effective strategies to manage pain in addition to pain medication PHYSICAL RESTRICTIONS-Physical restrictions and recommendations after discharge from the hospital POST-OPERATIVE INSTRUCTIONS-Correct actions to take to reduce postoperative complications POST-PROCEDURE INSTRUCTIONS-Correct actions to take to reduce post procedure complications FOLLOW-UP PLAN: Patient instructed to call with any further issues Follow-up with Primary Care SUPPLEMENTAL MATERIAL: None REFERRAL (RECOMMENDATION): None Electronically Signed By: Cassi Church RN In Department: [facility] AMBULATORY SURGERY - [facility] NURSING PROG HNO ID: [id number] Author: JUDIT KEYS RN Service: ? Author Type: Registered Nurse Type: Nursing Progress Note Filed: 04/18/2024 13:21 Note Text: PRE OP LEARNING ASSESSMENT PROCEDURE/SURGERY: SURGERY: Left knee READINESS TO LEARN COGNITIVE ABILITY: Alert and oriented MOTIVATION TO LEARN: Eager FAMILY SUPPORT: High - Very involved in pt care PATIENT LEARNS BEST BY: Written Instruction - Hand-outs Verbal Instruction FACTORS AFFECTING LEARNING: None PHYSICAL LIMITATIONS AFFECTING LEARNING: None Electronically Signed By: Judit Keys RN In Department: [facility] AMBULATORY SURGERY - [facility] Normal [facility] OPERATIVE NOon 04-18-2024 OPERATIVE NO HNO ID: [id number] Author: DIONICIO VACA MD Service: Orthopaedic Surgery Author Type: Physician Type: Operative Report Filed: 04/22/2024 17:05 Note Text: [facility] - Operative Report RERE KNUTSON : 1995 AGE: 29. SEX: F PATIENT TYPE: A HOSP SVC: [facility] LOCATION: [facility] ATTENDING PHYSICIAN: Dionicio Vaca MD CSN NUMBER: [id number] DATE OF SURGERY/PROCEDURE: 04/18/2024 INCISION/PROCEDURE START TIME: 1410 INCISION CLOSE/PROCEDURE END TIME: 1500. PREOPERATIVE DIAGNOSIS: Painful hardware, left knee. POSTOPERATIVE DIAGNOSIS: Painful hardware, left knee. SURGEON: Dionicio Vaca MD DIRECTOR SEMICONDUCTOR: Joss Angelo MD SURGERY/PROCEDURE: 1. Left knee diagnostic arthroscopy. 2. Debridement of ACL scar. 3. Removal of painful tibial screw. ANESTHESIA: General. LOCATION: [facility]. OPERATIVE INDICATIONS: Pleasant female with recurrent left knee pain after her ACL reconstruction in an outside institution. Imaging exam findings consistent with a prominent screw at the tibial drill site. Discussed the expectations, risks, benefits, and alternatives of above-mentioned procedure in this scenario. She voiced understanding and wished to proceed. DESCRIPTION OF PROCEDURE: Patient was brought to [facility] [address] on 04/18/24 after marking the appropriate surgical extremity in preoperative holding area. Brought in the operative suite, placed on the operative table, induced under general anesthesia. Placed distally on the table. Exam under anesthesia revealed symmetric extension, flexion with stability varus and valgus stress at 0 and 30 degrees, stable Yohannes and posterior drawer symmetrically. Negative pivot shift. Tourniquet was placed high on the left thigh, set to 300 mmHg. Left lower extremity was then prepped with Betadine. The preemptive analgesic cocktail 40 mL of 0.5% ropivacaine was injected intra-articularly for preemptive analgesia. Leg was then secured in the arthroscopic leg castañeda. Right lower extremity was placed in an Michael stirrup. Care was taken to pad all bony prominences. Left lower extremity was then prepped and draped in usual sterile fashion. After appropriate surgical time-out including all members of the surgical team, confirming the site and extremity, ensuring resident services director of 2 g IV Ancef, the leg was exsanguinated and tourniquet was elevated. The prior transverse incisions for the anterolateral and anteromedial portal were created. Exam of patellofemoral articulation revealed focal area of grade 3 change at the proximal edge of the trochlea 1 cm x 8 mm. The rest of the trochlea and patella were intact with some mild fissuring at the median ridge. The gutters were examined and were free of any debris. The medial compartment was then entered; and under direct visualization with an 18-gauge spinal needle, the standard anteromedial portal was created. Exam of the medial meniscus revealed no tearing. Medial femoral condyle and medial tibial plateau were intact. There was abundant scar in front of the ACL which did not represent the appearance of cyclops lesion. However, there were multiple frayed edges that were entering both the medial and lateral compartment. Lateral compartment was entered. Lateral meniscus was not torn or hypermobile. Lateral femoral condyle and lateral tibial plateau were intact. At this point, the scar from the ACL was debrided. The ACL was intact on removal of the scar tissue. Once this was completed, copious irrigation was performed. All excess fluid was removed. At this point, we made the longitudinal incision for the tibial screw. Dissection was taken down to the tibia which was easily identifiable in terms of the prominent screw. We then removed this in total using the star screwdriver. Once this was completed, there was a sheath that was also prominent. We then piecemeal took out the prominent edges of the sheath leaving the intraosseous component intact. Once this was completed, copious irrigation was performed. A layered closure was then performed with 2-0 Vicryl, followed by running Prolene stitch. Portal sites were closed with interrupted 3-0 Prolene followed by Steri-Strips and sterile dressing. Patient was then awakened from general anesthesia and taken to PACU in stable condition. COMPLICATIONS: None. SPECIMENS: None. FLUIDS: See anesthesia record. TOURNIQUET TIME: Less than 40 minutes. Tourniquet was relieved at the end of the procedure. Dionicio Vaca MD JR:[id number] /[id number] [facility] ORTHOPEDIC SURGERY IMAGING ( KRISTINA)on 04-18-2024 [facility] Radiology Study observation (narrative) [facility] SURGICAL PATHOLOGYon 024 CASE REPORT [facility] Comment on above: Order Comment: Speckatiana garcia Type: DEVICE SPECIMEN Ordering Facility: [facility] Address: [address] [place] [address] Result Comment: Surg ical Pathology Report Case: [id number] Authorizing Provider: Dionicio Vaca MD Collected: 04/18/2024 02:43 PM Ordering Location: [facility] Received: 04/18/2024 08:59 PM Ambulatory Surgery - [facility] Pathologist: Enzo Petersen MD Specimen: Hardware/Device/Foreign Body, left knee hardware Performed By: #### S #### [facility] CLIA [id number] [address] [place] [address] STATES OF [facility] CLINICAL HISTORY [facility] Comment on above: Order Comment: Janice garcia Type: DEVICE SPECIMEN Ordering Facility: [facility] Address: [address] [place] [address] Result Comment: Pre- op diagnosis: Chronic pain of left knee [M25.562, G89.29] Performed By: #### S #### [facility] CLIA [id number] [address] [place] [address] FINAL DIAGNOSIS [facility] Comment on above: Order Comment: Janice garcia Type: DEVICE SPECIMEN Ordering Facility: [facility] Address: [address] [place] [address] Result Comment: A. L eft knee, hardware removal: -Unremarkable tatum plastic screw with no attached soft tissue (Gross examination only). CP/OLS Performed By: #### S #### [facility] CLIA [id number] [address] [place] [address] OF [facility] Comment on above: Order Comment: Speci men Type: DEVICE SPECIMEN Ordering Facility: [facility] Address: [address] [place] [address] Result Comment: Diag nostic interpretation performed at [facility], [address] [place] [address] CLIA# [id number] Spinal Surgeon: Thor Muñiz M.D. Performed By: #### S #### [facility] CLIA [id number] [address] [place] [address] STATES OF [facility] GROSS DESCRIPTION [facility] Comment on above: Order Comment: Speci men Type: DEVICE SPECIMEN Ordering Facility: [facility] Address: [address] [place] [address] Result Comment: A. H ardware/Device/Foreign Body Received in formalin labeled left knee hardware is a tatum plastic screw measuring 3 x 0.6 x 0.6 cm. No soft tissue is attached. No sections are submitted. The specimen is reviewed with Dr. Petersen. Gross diagnosis only. Gross examination performed at [facility], [address] [place] [address] OLS April 19, 2024 1:13 PM Performed By: #### S #### [facility] CLIA [id number] [address] [place] [address] OF [facility] Brit 04-17-2024 CNPN Telephone ([place]) RERE KNUTSON ([id number]) 1995 F Date Time Provider Department 04/17/24 JAMEY WHITE During your visit today, we recorded the following information about you: Carmen Gonzalez RN 04/17/2024 10:36 AM Signed Spoke with Dr Colunga's office today regarding letter faxed on 04/15/2024. they never received the letter. Our letter was re-faxed to [phone]. Carmen Gonzalez RN April 17, 2024 10:36 AM Allergies As of Date: 04/17/2024 (No Known Allergies) Date Reviewed: 04/11/2024 Reviewed by: Jamey White PA-C - Fully Assessed Reason for Visit: Patient Update [1234] Prescriptions as of 04/17/2024 - CARD MAKER THYROID 120 mg tablet Take 120 mg by mouth once daily. - thyroid (CARD MAKER THYROID) 15 mg tablet Take 15 mg by mouth once daily. 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 Patient reports her red, splotchy rashes that were present at the time of her PACC visit have completely resolved. Denies any current redness, rash on either of her legs. She states this had been mainly on her right leg but there was some on the left. She states she had followed up with her PCP who did some testing. States her thyroid medication was off so they adjusted this and states everything has normalized. All other labwork that her PCP was normal. Will communicate this update with Dr. Vaca and Paula, along with the OR staff. 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 - thyroid (CARD MAKER THYROID) 15 mg tablet Take 15 mg by mouth once daily. 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] GERD (gastroesophageal reflux disease) [K21.9] Encounter Status:Closed by ELSA PAGAN on 04/16/24 Normal [facility] CBC + DIFFon 04-12-2024 Baso # 0.02 x10EE3/UL Normal 0.00 - 0.10 [facility] Comment on above: Performed By: #### 2 03024 #### [facility],[address] [place], [place] [id number] Basophils/100 WBC (Bld) 0.3 % Normal 0.0 - 2.0 [facility] Comment on above: Performed By: #### 2 82272 #### [facility],[address] [place], [place] [id number] CBC + DIFF Normal [facility] Comment on above: Result Comment: CBC- COMPLETE BLOOD COUNT Performed By: #### 2 25339 #### [facility] [address] [address] EO # 0.08 x10EE3/UL Normal 0.00 - 0.50 [facility] Comment on above: Performed By: #### 2 49564 #### [facility],[address] [place] [address] Eosinophils/100 WBC (Bld) 1.2 % Normal 0.0 - 7.0 [facility] Comment on above: Performed By: #### 2 80822 #### [place] [address] Erythrocyte distribution width (RBC) [Ratio] 13.5 % Normal 12.0 - 15.6 [facility] Comment on above: Performed By: #### 2 97230 #### [place] [address] Hematocrit (Bld) [Volume fraction] 41.4 % Normal 34.0 - 46.0 [facility] Comment on above: Performed By: #### 2 96821 #### [place] [id number] Hemoglobin (Bld) [Mass/Vol] 14.0 g/dL Normal 12.0 - 16.0 [facility] Comment on above: Performed By: #### 2 15361 #### [address] [address] Lymph # 2.06 x10EE3/UL Normal 0.80 - 2.80 [facility] Comment on above: Performed By: #### 2 83554 #### [address] [address] Lymphocytes/100 WBC (Bld) 31.4 % Normal 20.0 - 45.0 [facility] Comment on above: Performed By: #### 2 13723 #### [address] [address] MANUAL DIFF N/A Normal [facility] Comment on above: Performed By: #### 2 65182 #### [facility],[address] [place] [address] MCH (RBC) [Entitic mass] 29 pg Normal 27 - 33 [facility] Comment on above: Performed By: #### 2 91390 #### [facility],[address] [place] [address] MCHC 34 X10 3 Normal 32 - 36 [facility] Comment on above: Performed By: #### 2 90097 #### [facility],[address] [place] [address]884 MCV (RBC) [Entitic vol] 85 fL Normal 80 - 99 [facility] Comment on above: Performed By: #### 2 76369 #### [facility],[address] [place] [address] Foard # 0.41 x10EE3/UL Normal 0.20 - 1.00 [facility] Comment on above: Performed By: #### 2 93267 #### [facility],[address] [place] [address] MONOS % 6.3 % Normal 0.0 - 10.0 [facility] Comment on above: Performed By: #### 2 42867 #### [facility],[address] [place] [address] Morphology Lion (Bld) [Interp] N/A Normal [facility] Comment on above: Performed By: #### 2 98724 #### [facility],[address] [place] [address] Neut # 3.99 x10EE3/UL Normal 1.50 - 7.10 [facility] Comment on above: Performed By: #### 2 98617 #### [facility],[address] [place] [address] Neutrophils/100 WBC (Bld) 60.9 % Normal 46.0 - 76.0 [facility] Comment on above: Performed By: #### 2 97436 #### [facility],[address] [place] [address] PLATELET 298 x10EE3/UL Normal 150 - 450 [facility] Comment on above: Performed By: #### 2 57718 #### [facility],[address] [place] [address] Platelet mean volume (Bld) [Entitic vol] 8.2 fL Normal 6.6 - 10.5 [facility] Comment on above: Result Comment: AUTO MATED DIFFERENTIAL Performed By: #### 2 97534 #### [facility],[address] [place] [address] RBC 4.85 x 10EE6/UL Normal 4.10 - 5.30 [facility] Comment on above: Performed By: #### 2 77345 #### [facility],[address] [place] [address]70 WBC 6.6 x 10EE3/UL Normal 4.5 - 10.8 [facility] Comment on above: Performed By: #### 2 68010 #### [facility],[address] [place] [address] CMP with eGFRon 04-12-2024 AGE 29 years Normal [facility] Comment on above: Performed By: #### 2 17391 #### [facility],[address] [place] [address]12 Albumin [Mass/Vol] 3.6 g/dL Normal 3.4 - 5.0 [facility] Comment on above: Performed By: #### 2 05193 #### [facility],[address] [place] [address] Albumin/Globulin [Mass ratio] 1.0 {ratio} Normal 0.9 - 1.6 [facility] Comment on above: Performed By: #### 2 79404 #### [facility],[address] [place] [address] ALK PHOS 72 U/L Normal 46 - 116 [facility] Comment on above: Performed By: #### 2 94184 #### [facility],[address] [place] [address]56 ALT [Catalytic activity/Vol] 21 U/L Normal 16 - 63 [facility] Comment on above: Performed By: #### 2 78113 #### [facility],[address] [place] [address] Anion gap [Moles/Vol] 13 mmol/L Normal 10 - 20 [facility] Comment on above: Performed By: #### 2 82880 #### [facility],[address] [place] [address] AST [Catalytic activity/Vol] 14 U/L Normal 13 - 39 [facility] Comment on above: Performed By: #### 2 52854 #### [facility],[address] [place] [address] B/C RATIO 14 ratio Normal 0 - 30 [facility] Comment on above: Performed By: #### 2 00980 #### [facility],[address] [place], [place] [id number] Bilirubin [Mass/Vol] 0.3 mg/dL Normal 0.2 - 1.0 [facility] Comment on above: Performed By: #### 2 51443 #### [facility],[address] [place] [address] Calcium [Mass/Vol] 8.8 mg/dL Normal 8.5 - 10.1 [facility] Comment on above: Performed By: #### 2 15681 #### [facility],[address] [place] [address] Chloride [Moles/Vol] 105 mmol/L Normal 98 - 107 [facility] Comment on above: Performed By: #### 2 65627 #### [facility],[address] [place], [place] [address] CMP with eGFR Normal [facility] Comment on above: Result Comment: COMP REHENSIVE METABOLIC PANEL Performed By: #### 2 79483 #### [address] [address] CO2 [Moles/Vol] 26.1 mmol/L Normal 21.0 - 32.0 [facility] Comment on above: Performed By: #### 2 20587 #### [address] [address] Creatinine [Mass/Vol] 0.78 mg/dL Normal 0.55 - 1.02 [facility] Comment on above: Performed By: #### 2 66055 #### [address] [address] GFR/1.73 sq M.predicted among non-blacks MDRD (S/P/Bld) [Vol rate/Area] mL/min/{1.73_m2} Normal 60 - 999 [facility] Comment on above: Performed By: #### 2 48930 #### [address] [address] Result Comment: ACCO RDING TO THE NATIONAL KIDNEY DISEASE EDUCATION PROGRAM(NKDE), A NORMAL eGFR IS A VALUE GREATER THAN OR EQUAL TO 60 ML/MIN/1.73 SQ METERS. CHRONIC KIDNEY DISEASE: <60mL/MIN/1.73 SQ METERS KIDNEY FAILURE: <15mL/MIN/1.73 SQ METERS THIS TEST SHOULD ONLY BE USED FOR PATIENTS 18 YEARS OF AGE AND OLDER. Globulin (S) [Mass/Vol] 3.7 g/dL Normal 1.5 - 3.8 [facility] Comment on above: Performed By: #### 2 [id number] #### [address] [address] Glucose [Mass/Vol] 97 mg/dL Normal 74 - 106 [facility] Comment on above: Performed By: #### 2 86952 #### [address] [address] Potassium [Moles/Vol] 4.1 mmol/L Normal 3.5 - 5.1 [facility] Comment on above: Performed By: #### 2 43436 #### [facility],[address] [place] [address] Protein [Mass/Vol] 7.3 g/dL Normal 6.4 - 8.2 [facility] Comment on above: Performed By: #### 2 69515 #### [facility],[address] [place] [address] Sodium [Moles/Vol] 140 mmol/L Normal 136 - 145 [facility] Comment on above: Performed By: #### 2 68029 #### [facility],[address] [place], [place] [id number] Urea nitrogen [Mass/Vol] 11 mg/dL Normal 7 - 18 [facility] Comment on above: Performed By: #### 2 [id number] #### [facility],[address] [place] [address] MALARIA SMEARon 04-12-2024 MALARIA SMEAR MALARIA SMEAR NEGATIVE CONFIRMED NEGATIVE BY DR. MOLLY DUGGAN ON 04/15/2024 Normal [facility] Comment on above: Performed By: #### 2 55139 #### [facility],[address] [place] [address] T4-FREE (FREE THYROXINE)on 0 04-12-2024 Free T4 [Mass/Vol] 0.61 ng/dL Low 0.76 - 1.46 [facility] Comment on above: Result Comment: P otential of falsely elevated results when biotin concentrations are > 10 ng/mL. Performed By: #### 2 53322 #### [facility],[address] [place] [address] TSHon 04-12-2024 TSH Qn 3.65 m[IU]/L Normal 0.35 - 3.74 [facility] Comment on above: Performed By: #### 2 29728 #### [facility],[address] [place] [address] ZIKA VIRUS BY PCR, BLOODon 0 04-12-2024 ZIKA VIRUS BY PCR, BLOOD Not detected Normal [facility] Comment on above: Order Comment: Speci men Type: BLOOD SPECIMENOrdering Facility: [facility] Address: [address] [place] [address] Result Comment: NOT DETECTED - A negative result does not rule out the presence of PCR inhibitors in the patient specimen or assay specific nucleic acid in concentrations below the level of detection by the assay. INTERPRETIVE INFORMATION: Zika Virus by PCR, Blood Zika Virus by PCR is a real-time RT-PCR test intended for the qualitative detection of Zika virus RNA from individuals meeting CDC Zika virus clinical criteria (e.g., clinical signs and symptoms associated with Zika virus infection) and/or CDC Zika virus epidemiological criteria (e.g., history of residence in or travel to a geographic region with active Zika transmission at the time of travel, or other epidemiologic criteria for which Zika virus testing may be indicated). Diagnostic testing for Zika virus infection should be performed as outlined by current [facility] guidance. If serologic testing is needed as a follow-up to PCR, contact [facility] client services to order Zika Virus IgM Antibody Capture (MAC), by GISELLE (KYNapartner test code [id number]). Additional charges apply. The Zika Virus by PCR test is for in vitro diagnostic use under the FDA Emergency Use Authorization (EUA). This test has not been FDA cleared or approved. In compliance with this authorization, please visit [email or web address]://Travee/zika for more information and to access the applicable information sheets. Performed By: [employer] [address] [place] [id number] Spinal Surgeon: Anatoly Courtney MD, PhD CLIA Number: [id number] Performed By: #### Z KAPCR ####[facility] [facility] [id number] [place] [id number] ZIKA VIRUS, BLOOD, SOURCE Serum Normal [facility] Comment on above: Order Comment: Speckatiana garcia Type: BLOOD SPECIMENOrdering Facility: [facility] Address: [address] [place], [place] [id number] Performed By: #### Z KAPCR ####[facility] [id number] [place] [address] HISTORY PHYSICALon 4 HISTORY PHYSICAL HNO ID: [id number] Author: JAMEY WHITE PA-C Service: ? Author Type: Physician Maintenance Helper Type: H&P Filed: 04/23/2024 13:06 Note Text: PREANESTHESIA CONSULT CLINIC TELEHEALTH VISIT Patient has been identified by name and date of : Yes This is a virtual visit using [employer] Zoom Video Visit. It require patient-provider interaction for the medical decision making as documented below. Reason for contact: PACC visit Accompanied by: Self Scheduled Surgery: Procedure(s) (LRB): ARTHROSCOPY KNEE REMOVAL OF LOOSE OR FOREIGN BODY BILATERAL (Left) I have communicated my name and active licensure. The patient's identity and physical location were verified at the time of this visit. Either the patient or their legal unit support representative has been informed of the risks and benefits of -- and alternatives to -- treatment through a remote evaluation and consents to proceed with the evaluation remotely. ASSESSMENT: 1. Preop examination Scheduled for above procedure 2. Obesity, Class II, BMI 35-39.9 BMI 39 3. Hypothyroidism, unspecified type On CARD MAKER thyroid. Patient reports asymptomatic and feeling well on medication. Subjectively stable 4. GERD Every couple days in the past. Last symptoms a couple weeks ago. Currently diet controlled. Did not take prescription that was offered. 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 6. Rash Patient reports red and splotchy rash on back of legs and arms for a couple weeks that is itchy. She has been using benadryl cream on the area and states it tends to be worse at night. Improving over time. She reports it is present on both legs, but is worse on the right. I am unable to see the rash well through virtual visit. Since the rash includes the site of surgery, encouraged follow-up with PCP preop. Will send message to surgeon. Patient will keep me updated through Swapsee METS: Walk a block or two on level ground (2.75 METs) Climb a flight of stairs or walk up a hill (5.50 METs) Participate in moderate recreational activities, such as golf, bowling, dancing, doubles tennis, or throwing a baseball or football (6.00 METs) Patient denies any chest pain or undue shortness of breath with the above physical activity. Rides bicycle, plays volleyball or pickleball occasionally ANESTHESIA FINDINGS: Intubation History: No history of difficult intubation Significant Anesthesia Considerations: Patient reports local anesthesia does not see to work well for her and she can feel what they're doing Airway Exam: General: Obese - BMI 39 Mallampati Score is CLASS II ULBT: Class II - Lower incisors can bite the upper lip below the lynne line Neck: Normal appearance and function Mouth: Normal tongue size and Mouth opening greater than 2 finger breaths Dentition: Intact Airway History: No abnormal airway history STOP BANG Score: Criteria: Tired BMI > 35 Score = 2 Subjective CHIEF COMPLAINT: Patient presents with: Pre-Op Visit HPI: This is a 29 year old female who presents with history of left ACL surgery approximately 7 years ago. Patient reports constant pain that is 5-8/10 with sharp and stabbing quality. She was diagnosed with chronic pain in his left knee and elects to proceed with above procedure ACTIVE PROBLEM LIST Hypothyroidism Obesity, Class II, Bmi 35-39.9 Eds (Donte-Danlos Syndrome) Gerd (Gastroesophageal Reflux Disease) PAST MEDICAL HISTORY No date: EDS (Donte-Danlos syndrome) No date: GERD (gastroesophageal reflux disease) No date: Hypothyroidism No date: Obesity, Class II, BMI 35-39.9 PAST SURGICAL HISTORY 2017: PAST SURGICAL HISTORY OF; Left Comment: knee ACL No date: PAST SURGICAL HISTORY OF; Left Comment: breast lumpectomy No date: PAST SURGICAL HISTORY OF; Right Comment: breast lumpectomy FAMILY HISTORY Problem Relation Age of Onset No Known Problems Mother Hypertension Father Anesthesia Problems No Family History Social History Tobacco Use Smoking status: Never Smokeless tobacco: Never Vaping Use Vaping status: Never Used Substance Use Topics Alcohol use: Never Drug use: Never ALLERGIES No Known Allergies MEDICATIONS: Current Outpatient Medications Medication Sig CARD MAKER THYROID 120 mg tablet Take 120 mg by mouth once daily. thyroid (CARD MAKER THYROID) 15 mg tablet Take 15 mg by mouth once daily. Total 135 mg daily No current facility-administered medications for this visit. COVID-19 Immunization Status Overdue - Covid-19 Vaccine ( season) Never done No completion, postpone, frequency change, or communication history exists for this topic. Had COVID-19 2019 and 2021. Denies complications or hospitalization. REVIEW OF SYSTEMS: Pain Assessment: General: No weight loss, malaise or fevers. Neuro: No history of TIA's, stroke, SPORTS WRITER tumor, impaired sensorium, hemiplegia, paraplegia or quadraplegia. No neurological symptoms (more content not included)... Normal [facility] CNPNon 04-03-2024 CNPN Telephone (ORQ) RERE KNUTSON ([id number]) 1995 F Date Time Provider Department 04/03/24 DIONICIO VACA During your visit today, we recorded the following information about you: Fiona Burton 04/03/2024 1:54 PM Signed Rere is calling Dionicio Vaca MD today with concern regarding Patient Question. Pt states someone was supposed to call her to schedule surgery with Dr. Vaca and has not heard anything yet. Patient has been identified by name and birthdate. Duration of symptoms: N/A Person calling: self Call patient at: at home [phone] (home) [phone] (cell) Elsa Branham, AT 04/04/2024 1:00 PM Signed Spoke with patient on the phone. Surgery date of 04-18-24 was agreed upon. Pre-op instructions were reviewed in detail and then sent via . All questions were answered. Elsa Pagan, MEd, AT, ATC Allergies As of Date: 04/03/2024 (Not on File) Date Reviewed: Never Reviewed Reason for Visit: Patient Question [3847] Problem List As Of Date: 04/03/2024 (None) Encounter Status:Closed by ELSA PAGAN on 04/04/24 Normal [facility] CNOVon 03-27-2024 CNOV Office Visit (SPRTSO ) PILARRERE Wili ([id number]) 1995 F Date Time Provider Department 03/27/24 8:45 AM DIONICIO VACA During your visit today, we recorded the following information about you: Aníbal Crow MD 03/27/2024 9:01 AM Signed DEPARTMENT OF ORTHOPAEDICS Consultation as a request of Self. HISTORY OF PRESENT ILLNESS: This is a pleasant 29 year old female, who presents today with a chief complaint of left knee pain. Patient with history of left ACL injury require reconstruction using allograft approximately 7 years ago in [place]. Patient is here for MRI left knee follow-up. She states her pain has not improved since her last visit on 01/24/2024 and has remained the same. Denies any interim trauma. Interim Injury/ Trauma: Denies PAIN EVALUATION 03/21/2024 1431 Pain Level: 7 Pain Location: Knee-Left Description: Aching;Sharp;Shooting;Sore; Stabbing/Not Incision;Stiffness;Tenderne ss Frequency: Continuous REVIEW OF SYSTEMS: GENERAL:No weight loss, malaise or fevers RESPIRATORY: Negative for cough, hemoptysis, wheezing, COPD, dyspnea or shortness of breath CARDIOVASCULAR: Negative for chest pain, leg swelling, hypertension, CHF or palpitations GASTROINTESTINAL: No nausea, vomiting, or diarrhea} MUSCULOSKELETAL: Negative for joint pain or swelling, back pain or muscle pain NEUROLOGIC:Negative for focal numbness or weakness, headaches and dizziness or syncope. SKIN:Negative for lesions, rash, and itching HEMATOLOGIC/LYMPHATIC/IMMUN OLOGIC:Negative for prolonged bleeding, bruising easily or swollen nodes ENDOCRINE: Negative for cold or heat intolerance, polyuria, polydipsia and goiter PHYSICAL EXAM: There were no vitals taken for this visit. General: Appears stated age, well built, in no apparent distress. Psychiatric: Mood and affect appropriate. Alert and oriented x 3 without evidence of abnormal respiratory effort. Musculoskeletal Exam: Gait and Station WNL. Contralateral knee comparison examination is within normal limits. Inspection Right Left Incision No evidence of surgical incisions. Positive: Well healed anteromedial incision. Atrophy No evidence of muscular atrophy. No evidence of muscular atrophy. Alignment normal normal Range of Motion Knee-Flex 0-0-120 degrees 0-0-120 degrees Patella Mobility Normal patellar mobility Normal patellar mobility Superior 2 quadrant 2 quadrant Inferior 2 quadrant 2 quadrant Medial 2 quadrant 2 quadrant Lateral 2 quadrant 2 quadrant Effusion No effusion No effusion Tenderness none Medial tibial directly over prior incision, near area of screw prominence on MRI Crepitance Negative palpable/audible patellofemoral, medial or lateral compartment crepitance Negative palpable/audible patellofemoral, medial or lateral compartment crepitance Meniscus Negative medial and lateral Shabnam's test Negative medial and lateral Shabnam's test Valgus 0 degrees negative negative Valgus 30 degress negative Positive for very mildly increased laxity Varus 0 degrees negative negative Varus 30 degrees negative negative Lachmans negative negative Posterior drawer negative negative IMAGING MRI right knee obtained within 30 days showing intact ACL with prominent tibial screw noted. PROCEDURE: Not applicable IMPRESSION: 1. left knee painful hardware. Given imaging and physical exam, she is ligamentously stable. Pain is across noted tibial tunnel screw site. Given this, patient would likely benefit from a removal of hardware and diagnostic arthroscopy. Risks and benefits of surgery were discussed on today's visit. All questions answered. Patient verbalized understand agrees plan. PLAN: 1. Medication: None. 2. Test(s)/Imaging/Referral(s) : None. 3. Intervention: Following a disussion of nonoperative and operative treatment options, the risks and benefits of both, expected outcome and rehabilitation the patient elected for surgical intervention. Left knee removal of hardware. He will be scheduled following necessary clearance at the patient's convenience. . 4. Follow-up: For surgery. Aníbal Crow MD Sports Medicine/Orthopeaedic Surgery Dionicio Vaca MD 03/27/2024 12:19 PM Signed I have reviewed the history and physical obtained by my resident or fellow. HPI explored in detail with the patient. Pt was seen by me and rg findings were confirmed. I agree with the findings as documented. I personally participated the patient's assessment and treatment recommendations. Dionicio Vaca MD Allergies As of Date: 03/27/2024 (Not on File) Date Reviewed: Never Reviewed Primary Visit Diagnosis:Chronic pain of left knee [M25.562, G89.29] Problem List As Of Date: 03/27/2024 (None) Encounter Status:Closed by ONESIMODIONICIO WALKER on 03/27/24 Normal [facility] FOOT COMPLETE RTon FOOT COMPLETE RT [place] [address] Patient: RERE KNUTSON Phone#: : 1995 Age: 29 Gender: F Pt. Type: Out Account: [id number] Location: [facility] Ordering: JUSTYNA COLUNGA Exam Date: 03/25/2024/11:05 Family Phys: Charge Code: [id number] Physician: [place] Order #: [id number] Dose#: PROCEDURE: X-RAY FOOT RT COMPLETE MIN 3 VIEWS COMPARISON: None. INDICATIONS: Right Foot Injury. FINDINGS: BONES: Normal. No significant arthropathy or acute abnormality. SOFT TISSUES: Negative. No visible soft tissue swelling. EFFUSION: None visible. OTHER: Negative. CONCLUSION: No acute disease. Dictated by: Laila Temple MD on 03/25/2024 at 14:16 Approved by: Laila Temple MD on 03/25/2024 at 14:17 Normal [facility] MRI KNEE WO IVCON LTon 03-13 MRI KNEE WO IVCON LT * * *Final Report* * * DATE OF EXAM: Mar 13 2024 3:20PM [facility] 0212 - MRI KNEE WO IVCON LT / PROCEDURE REASON: multiple diagnoses * * * * Physician Interpretation * * * * EXAMINATION: MRI LEFT KNEE WITHOUT CONTRAST CLINICAL HISTORY: Chronic pain of left knee with previous ACL reconstruction TECHNIQUE: Routine non-contrast MRI of the knee MQ: [id number] COMPARISON: Previous MRI 09/17/2021, radiographs and orthopedic office note 01/24/2024 RESULT: MENISCI: Medial Meniscus: Intact. Lateral Meniscus: Intact. LIGAMENTS: ACL: Intact ACL graft . The tibial tunnel screw appears slightly prominent at the anteromedial proximal tibial cortex. There is no surrounding soft tissue edema or bursa formation PCL: Intact MCL: Remote injury with mild diffuse ligament thickening LCL Complex: Intact CARTILAGE: Medial Femoral Condyle: Small area(s) of low grade (less than 50% thickness) partial thickness cartilage loss and or fissuring Medial Tibial Plateau: Small areas(s) of cartilage signal abnormality with smaller area(s) of low grade (less than 50% thickness) cartilage loss and or fissuring Lateral Femoral Condyle: Small area(s) of cartilage signal abnormality Lateral Tibial Plateau: Small area(s) of cartilage signal abnormality Patella: Small areas(s) of predominantly high grade (greater than 50% thickness) cartilage loss and or fissuring with smaller area(s) of full thickness cartilage loss and or fissuring at the median ridge Trochlea: Moderate sized area(s) of predominantly low grade (less than 50% thickness) cartilage loss and or fissuring with smaller area(s) of high grade (greater than 50% thickness) cartilage loss and or fissuring at the medial trochlea and trochlear groove TENDONS: The distal quadriceps and patellar tendons are intact. The popliteus tendon is intact. BONES AND MARROW: No evidence of fracture or bone marrow replacing process. MUSCLES: Muscle bulk and signal intensity are normal. JOINT FLUID AND SYNOVIUM: No joint effusion. No synovitis. No Beltran's cyst. OTHER: Linear signal in the infrapatellar fat is in keeping with prior arthroscopy/surgery. Localizer images: IMPRESSION: 1. Intact ACL graft. Tibial tunnel screw is slightly prominent of the anteromedial proximal tibial cortex. 2. No meniscal tear 3. Mild thickening of the MCL compatible with remote injury. 4. Chondral degeneration thinning with patellofemoral predominance and interval progression. Veterinary Milk Specialist: PSCB Transcribe Date/Time: Mar 15 2024 7:23A Dictated by : GOMEZ LIANG MD This examination was interpreted and the report reviewed and electronically signed by: GOMEZ LIANG MD on Mar 15 2024 7:49AM EST [id number] [facility] CNOVon 01-24-2024 CNOV Office Visit (SPRTSO ) RERE KNUTSON ([id number]) 1995 F Date Time Provider Department 01/24/24 8:15 AM DIONICIO VACA During your visit today, we recorded the following information about you: Kyree Dias MD 01/24/2024 8:44 AM Signed DEPARTMENT OF ORTHOPAEDICS Consultation as a request of self-referred. HISTORY OF PRESENT ILLNESS: This is a pleasant 29 year old female, who presents today with a chief complaint of left knee pain. Patient has a history of left ACL injury requiring reconstruction using allograft about 7 years ago. She sustained the injury while playing spike ball, noncontact injury. She recovered well after surgery and felt that she had a stable knee with minimal residual pain. Was able to return to all activities. However, about 2 years ago she sustained a second, separate injury while sledding. At that time, she was told that she had an MCL injury as well as some other injuries that she cannot exactly recall. At that time, she sought a few different opinions which varied from trial of nonoperative management versus immediate surgical intervention. Ultimately, she underwent nonoperative management with substantial improvement of her symptoms. However, she now continues to have some pain over the anterior and medial aspect of her knee. She feels pain regularly throughout the day with any activity. It worsens with more strenuous sports such as volleyball or spike ball. She has tried physical therapy, anti-inflammatories without significant relief of symptoms. Injury/ Trauma: Reports sledding injury Pain location: anterior Duration of pain/ symptoms: 2 years Frequency: intermittent Intensity: moderate Quality: aching She Denies nocturnal pain. She denies proximal radiation.. She denies numbness, tingling, or electric shocks. She reports clicking. She Denies swelling and/or warmth. 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 No past surgical history on file. No current outpatient medications on file. No current facility-administered medications for this visit. ALLERGIES Not on File No family history on file. REVIEW OF SYSTEMS: GENERAL: No weight loss, malaise or fevers HEENT: Negative for frequent or significant headaches, No changes in hearing or vision, no nose bleeds or other nasal problems NECK: Negative for lumps, goiter, pain and significant neck swelling RESPIRATORY: Negative for cough, hemoptysis, wheezing, COPD, dyspnea or shortness of breath CARDIOVASCULAR: Negative for chest pain, leg swelling, hypertension, CHF or palpitations GI: No nausea, vomiting, or diarrhea : No history of dysuria, frequency or incontinence DEVOPS CONSULTANT: Negative for abnormal vaginal bleeding, abnormal vaginal discharge MUSCULOSKELETAL: Negative for joint pain or swelling, back pain or muscle pain SKIN: Negative for lesions, rash, and itching HEMATOLOGY/LYMPHOLOGY: Negative for prolonged bleeding, bruising easily or swollen nodes ENDOCRINE: Negative for cold or heat intolerance, polyuria, polydipsia and goiter RADIOGRAPHS: left AP, lateral, two obliques dated today revealed no acute processes, fractures, or dislocations. Osseous and soft tissue structures within normal limits. There is no significant knee joint arthritis. OTHER STUDIES: left knee MRI dated 2 years ago from outside our system reveals intact ACL graft, intact menisci, somewhat attenuated MCL with surrounding edema at its distal insertion. There is also some prominence of the tibial screw from prior ACL extraction with surrounding edema. In addition, there is some nonspecific signal intra-articular that extends extra-articular that could represent loose bodies or scar tissue. PHYSICAL EXAM: There were no vitals taken for this visit. General: Appears stated age, well built, in no apparent distress. Psychiatric: Mood and affect appropriate. Alert and oriented x 3 without evidence of abnormal respiratory effort. Musculoskeletal Exam: Gait and Station WNL. Contralateral knee comparison examination is within normal limits. Inspection Right Left Incision No evidence of surgical incisions. Positive: Well healed anteromedial incision. Atrophy No evidence of muscular atrophy. No evidence of muscular atrophy. Alignment normal normal Range of Motion Knee-Flex 0-0-120 degrees 0-0-120 degrees Patella Mobility Normal patellar mobility Normal patellar mobility Superior 2 quadrant 2 quadrant Inferior 2 quadrant 2 quadrant Medial 2 quadrant 2 quadrant Lateral 2 quadrant 2 quadrant Effusion No effusion No effusion (more content not included)... Normal [facility] XR KNEE 4V AP/PA BOTH+LAT/ME R LTon 01-24-2024 XR KNEE 4V AP/PA BOTH+LAT/DIANNA LT * * *Final Report* * * DATE OF EXAM: Jan 24 2024 7:50AM SOX [id number] - XR KNEE 4V AP/PA BOTH+LAT/DIANNA LT / PROCEDURE REASON: Pain * * * * Physician Interpretation * * * * HISTORY: Pain . left knee pain TECHNIQUE: XR KNEE 4V AP/PA BOTH+LAT/DIANNA LT COMPARISON: None RESULT: Postoperative changes of anterior cruciate ligament reconstruction with Endobutton in the distal lateral femur. Hardware in normal position without evidence of failure or loosening. No fractures. Minimal degenerative changes. No other significant abnormality. IMPRESSION: POSTOPERATIVE FINDINGS DESCRIBED Veterinary Milk Specialist: [facility] Transcribe Date/Time: Jan 24 2024 8:15A Dictated by : PHILIPPE LARA MD This examination was interpreted and the report reviewed and electronically signed by: PHILIPPE LARA MD on Jan 24 2024 8:20AM EST [id number] Normal [facility] XR Knee - left 4 Viewson IMPRESSION: POSTOPERATIVE FINDINGS DESCRIBED Veterinary Milk Specialist: [facility] Transcribe Date/Time: Jan 24 2024 8:15A Dictated by : PHILIPPE LARA MD This examination was interpreted and the report reviewed and electronically signed by: PHILIPPE LARA MD on Jan 24 2024 8:20AM EST DIVISION OF RADIOLOGY * * *Final Report* * * DATE OF EXAM: Jan 24 2024 7:50AM SOX 5202 - XR KNEE 4V AP/PA BOTH+LAT/DIANNA LT / PROCEDURE REASON: Pain * * * * Physician Interpretation * * * * HISTORY: Pain . left knee pain TECHNIQUE: XR KNEE 4V AP/PA BOTH+LAT/DIANNA LT COMPARISON: None RESULT: Postoperative changes of anterior cruciate ligament reconstruction with Endobutton in the distal lateral femur. Hardware in normal position without evidence of failure or loosening. No fractures. Minimal degenerative changes. No other significant abnormality. DIVISION OF RADIOLOGY Provider, Neli Miller - 01/24/2024 * * *Final Report* * * DATE OF EXAM: Jan 24 2024 7:50AM SOX 5202 - XR KNEE 4V AP/PA BOTH+LAT/DIANNA LT / PROCEDURE REASON: Pain * * * * Physician Interpretation * * * * HISTORY: Pain . left knee pain TECHNIQUE: XR KNEE 4V AP/PA BOTH+LAT/DIANNA LT COMPARISON: None RESULT: Postoperative changes of anterior cruciate ligament reconstruction with Endobutton in the distal lateral femur. Hardware in normal position without evidence of failure or loosening. No fractures. Minimal degenerative changes. No other significant abnormality. IMPRESSION IMPRESSION: POSTOPERATIVE FINDINGS DESCRIBED Veterinary Milk Specialist: JIN Transcribe Date/Time: Jan 24 2024 8:15A Dictated by : PHILIPPE LARA MD This examination was interpreted and the report reviewed and electronically signed by: PHILIPPE LARA MD on Jan 24 2024 8:20AM EST [facility] Radiology Study observation (narrative) [facility] XR Knee - left 4 ViewsOrdere d By: [facility] Provider on 01-24-2024 [facility] CORTISOL, FREE [CCL]on 01-09 Free Cortisol, Serum 0.36 ug/dL Normal [facility] Comment on above: Result Comment: 18 y ears of age and older: 8-10 a.m. collection: 0.21-1.04 ug/dL 4-6 p.m. collection: 0.10-0.63 ug/dL INTERPRETIVE INFORMATION: Cortisol, Free by [facility]/LC-MS/MS This test was developed and its performance characteristics determined by [facility]. It has not been cleared or approved by the US Food and Drug Administration. This test was performed in a CLIA certified laboratory and is intended for clinical purposes. Performed By: [facility] [address] [place] [address] Spinal Surgeon: Anatoly Courtney MD, PhD CLIA Number: [id number] [place] [id number] Thor Muñiz III, M.D. [id number] Performed By: #### 2 [address] #### [address] [address] ACTH [CCL]on 01-06-2024 ACTH 14.5 pg/mL Normal 7.2-63.3 [facility] Comment on above: Result Comment: ACTH Reference Range: 7-10 am: 7.2 - 63.3 pg/[place] [address] Thor Muñiz III, M.D. [id number] Performed By: #### 2 [address]7027 #### [address] [address] FSH [CCL]on 01-06-2024 FSH 5.8 mIU/mL Normal See comment [facility] Comment on above: Result Comment: Refe rence range: Follicular: 3.5-12.5 mIU/mL Ovulation: 4.7-21.5 mIU/mL Luteal: 1.7-7.7 mIU/mL Postmenopausal: 25.8-134.8 mIU/[place] [address] Tohr Muñiz III, M.D. [id number] Performed By: #### 2 [address]147 #### [address] [address] PROLACTIN [CCL]on 01-06-2024 Prolactin 7.2 ng/mL Normal 4.5-26.8 [facility] Comment on above: Result Comment: Prol actin test is performed using the [employer] Electrochemiluminescence Immunoassay method. Results obtained with different methods or kits [place] [address] Thor Muñiz III, M.D. [id number] Performed By: #### 2 87107 #### [facility],[address] [place] [address] ACTH Plas-mCncon 01-05-2024 Corticotropin (P) [Mass/Vol] 14.5 pg/mL Normal 7.2-63.3 [facility] Comment on above: Order Comment: Speci men Type: BLOOD SPECIMENOrdering Facility: [facility] Address: [address] [place], [place] [address] Result Comment: ACTH Reference Range: 7-10 am: 7.2 - 63.3 pg/mL Performed By: #### 2 141-0 ####[facility] [id number] [place] [address] [place] CORTISOL [CCL]on 01-05-2024 Cortisol 8.5 ug/dL Normal 4.8-19.5 [facility] Comment on above: Result Comment: Prov ided reference range is from 6-10 AM sample collection time. Cortisol Reference Range: 6-10 AM = 4.8-19.5 ug/dL, 4-8 PM = 2.5-11.9 ug/dL [facility] [address] [place] [address] Thor Muñiz III, M.D. [id number] Performed By: #### 2 44286 #### [facility],[address] [place] [address] CORTISOL, FREEon 01-05-2024 FREE CORTISOL, SERUM 0.36 ug/dL Normal [facility] Comment on above: Order Comment: Speci men Type: BLOOD SPECIMENOrdering Facility: [facility] Address: [address] [place] [address] Result Comment: 18 years of age and older: 8-10 a.m. collection: 0.21-1.04 ug/dL 4-6 p.m. collection: 0.10-0.63 ug/dL INTERPRETIVE INFORMATION: Cortisol, Free by [facility]/LC-MS/MS This test was developed and its performance characteristics determined by [facility]. It has not been cleared or approved by the US Food and Drug Administration. This test was performed in a CLIA certified laboratory and is intended for clinical purposes. Performed By: [facility] [address] [place] [address] Spinal Surgeon: Anatoly Courtney MD, PhD CLIA Number: [id number] Performed By: #### F [facility] ####[facility] [id number] [place] [address] Cortis SerPl-mCncon 01-05-20 24 Cortisol [Mass/Vol] 8.5 ug/dL Normal 4.8-19.5 [facility] Comment on above: Order Comment: Speci men Type: BLOOD SPECIMENOrdering Facility: [facility] Address: [address] [place] [address] Result Comment: Prov ided reference range is from 6-10 AM sample collection time. Cortisol Reference Range: 6-10 AM = 4.8-19.5 ug/dL, 4-8 PM = 2.5-11.9 ug/dL Performed By: #### 1 0501-5, 2143-6 ####[facility]IA [id number] [place] [address] [place] FSH SerPl-aCncon 01-05-2024 Follitropin Qn 5.8 m[IU]/mL Normal See comment [facility] Comment on above: Order Comment: Speci men Type: BLOOD SPECIMENOrdering Facility: [facility] Address: [address] [place] [address] Result Comment: Refe rence range: Follicular: 3.5-12.5 mIU/mL Ovulation: 4.7-21.5 mIU/mL Luteal: 1.7-7.7 mIU/mL Postmenopausal: 25.8-134.8 mIU/mL Performed By: #### 1 5067-2, 2842-3 ####[facility] [id number] [place] [address] [place] LH SerPl-aCncon 01-05-2024 Lutropin Qn 4.5 m[IU]/mL Normal See comment [facility] Comment on above: Order Comment: Speci men Type: BLOOD SPECIMENOrdering Facility: [facility] Address: [address] [place] [address] Result Comment: Refe rence range: Follicular: 2.4-12.6 mIU/mL Midcycle: 14.0-95.6 mIU/mL Luteal: 1.0-11.4 mIU/mL [place]: 7.7-58.5 mIU/mL Performed By: #### 1 0501-5, 2143-6 ####[facility] [id number] [address] OF [place] LUTEINIZING HORMONE [CCL]on 01-05-2024 LH 4.5 mIU/mL Normal See comment [facility] Comment on above: Result Comment: Refe rence range: Follicular: 2.4-12.6 mIU/mL Midcycle: 14.0-95.6 mIU/mL Luteal: 1.0-11.4 mIU/mL [place]: 7.7-58.5 mIU/[place] [address] Thor Muñiz III, M.D. [id number] Performed By: #### 2 [address] #### [facility],[address] [place], [place] [address] Prolactin SerPl-mCncon 01-04 Prolactin [Mass/Vol] 7.2 ng/mL Normal 4.5-26.8 [facility] Comment on above: Order Comment: Speci men Type: BLOOD SPECIMENOrdering Facility: [facility] Address: [address] [place] [address] Result Comment: Prol actin test is performed using the [employer] Electrochemiluminescence Immunoassay method. Results obtained with different methods or kits cannot be used interchangeably. Performed By: #### 1 5067-2, 2842-3 ####[facility] LABCLIA [id number] [facility] [id number] [id number] [place] No Panel InformationOrdered By: Dr. Wooten on 12-07-2022 Immunoglobulin E 131 IU/mL 6-495 [facility] Comment on above: Performed at: - [facility] [address] [id number] Director: Kyree Elias PhD, Phone: [phone] at: [facility] [id number] Director: Jennifer Lopez MD, Phone: [phone] Immunoglobulin G4 11 mg/dL 2-96 [facility] Serum IgG subclass 1 measure ment (mass/volume)Ordered By: Dr. Wooten on 12-07-2022 IgG subclass 1 (S) [Mass/Vol] 633 mg/dL 248-810 [facility] Serum IgG subclass 2 measure ment (mass/volume)Ordered By: Dr. Wooten on 12-07-2022 IgG subclass 2 (S) [Mass/Vol] 359 mg/dL 130-555 [facility] Serum IgG subclass 3 measure ment (mass/volume)Ordered By: Dr. Wooten on 12-07-2022 IgG subclass 3 (S) [Mass/Vol] 74 mg/dL 15-102 [facility] Serum or plasma IgG measurem ent (mass/volume)Ordered By: Dr. Wooten on 12-07-2022 IgG [Mass/Vol] 1168 mg/dL [phone] [facility] MEENAKSHI by IFAon 10-21-2020 MEENAKSHI Pattern ANANOT Normal [facility] Comment on above: Performed By: #### T YOLA, FREET3, T3 #### [facility] [address] [place] [address] #### TG, ANAIFS, TSIGIM #### [facility] [address] [place] [address] MEENAKSHI Titer Normal Negative [facility] Comment on above: Result Comment: Nega tive Normal range : negatie at <1:80 serum dilution. Performed By: #### T YOLA, FREET3, T3 #### [facility] [address] [place] [phone] #### TG, ANAIFS, TSIGIM #### [facility] [address] [place] [address] Nuclear Ab IF (S) [Titer] Negative Normal Negative [facility] Comment on above: Performed By: #### T YOLA, FREET3, T3 #### [facility] [address] [place] [phone] #### TG, ANAIFS, TSIGIM #### [facility] [address] [place] [phone] Free T3on 10-21-2020 Free T3 [Mass/Vol] 3.3 pg/mL Normal 2.3-4.[address] [facility] Reference Lab Comment on above: Performed By: #### T YOLA, FREET3, T3 #### [facility] [address] [place] [phone] #### TG, ANAIFS, TSIGIM #### [facility] [address] [place] [phone] T3on 10-21-2020 T3 121 ng/dL Normal 79-165 [facility] Comment on above: Performed By: #### T YOLA, FREET3, T3 #### [facility] [address] [place] [phone] #### TG, ANAIFS, TSIGIM #### [facility] [address] [place] [phone] Akshat 10-21-2020 TSI <0.10 Normal <0.55 [facility] Comment on above: Performed By: #### T YOLA, FREET3, T3 #### [facility] [address] [place] [phone] #### TG, ANAIFS, TSIGIM #### [facility] [address] [place] [phone] TSI Qualitative NEGAT Normal Negative [facility] Comment on above: Performed By: #### T YOLA, FREET3, T3 #### [facility] [address] [place] [phone] #### TG, ANAIFS, TSIGIM #### [facility] [address] [place] [phone] Thyroglobulinon 10-21-2020 Thyroglobulin 51.1 ng/mL Normal 1.6-59.9 [facility] Comment on above: Performed By: #### T YOLA, FREET3, T3 #### [facility] [address] [place] [phone] #### TG, ANAIFS, TSIGIM #### [facility] [address] [place] [phone] Thyroglobulinon 10-20-2020 TG Antibody Screen High <14.[address] [facility] Reference Lab Comment on above: Result Comment: 22.1 The anti-thyroglobulin antibody result is positive (> or =14.4 IU/mL), and a reflexed thyroglobulin test will be performed by mass spectrometry. The presence of anti-thyroglobulin antibodies may lead to underestimation of thyroglobulin concentrations using immunometric assays. Performed By: #### T YOLA, FREET3, T3 #### [facility] [address] [place] [phone] #### TG, ANAIFS, TSIGIM #### [facility] [address] [place] [phone] Thyroglobulin Abon Thyroglobulin Ab Qn 22.1 [IU]/mL High <14.4 [facility] Reference Lab Comment on above: Performed By: #### T YOLA, FREET3, T3 #### [facility] [address] [place], [place] [address] #### TG, ANAIFS, TSIGIM #### [facility] [address] [place], [place] [address] Vital Signs Date Time Vital Sign Value Performing Clinician Facility 02-11-2025 09:04-0400 Body height 170.18 cm Patria Packer NP-C Work Phone: [facility] 02-11-2025 09:04-0400 Body mass index (BMI) [Ratio] 39.4 kg/m2 Patria Packer NP-C Work Phone: [facility] 02-11-2025 09:04-0400 Body temperature 97.8 [degF] Patria Packer NP-C Work Phone: [facility] 02-11-2025 09:04-0400 Body weight 114.3 kg Patria Packer NP-C Work Phone: [facility] 02-11-2025 09:04-0400 Diastolic blood pressure 78 mm[Hg] Patria Packer NP-C Work Phone: [facility] 02-11-2025 09:04-0400 Heart rate 90 /min Patria Packer NP-C Work Phone: [facility] 02-11-2025 09:04-0400 Respiratory rate 16 /min Patria Packer NP-C Work Phone: [facility] 02-11-2025 09:04-0400 SaO2% (BldA) [Mass fraction] 98 % Patria Packer NP-C Work Phone: [facility] 02-11-2025 09:04-0400 Systolic blood pressure 130 mm[Hg] Patria Packer NP-C Work Phone: [facility] 04-18-2024 16:30-0400 Heart rate 77 /min Dionicio Vaca MD Work Phone: [facility] 04-18-2024 16:30-0400 Respiratory rate 22 /min Dionicio Vaca MD Work Phone: [facility] 04-18-2024 16:30-0400 SaO2% (BldA) [Mass fraction] 97 % Dionicio Vaca MD Work Phone: [facility] 04-18-2024 16:15-0400 Body temperature 97.3 [degF] Dionicio Vaca MD Work Phone: [facility] 04-18-2024 16:15-0400 Diastolic blood pressure 59 mm[Hg] Dionicio Vaca MD Work Phone: [facility] 04-18-2024 16:15-0400 Systolic blood pressure 104 mm[Hg] Dinoicio Vaca MD Work Phone: [facility] 04-18-2024 13:00-0400 Body height 170.2 cm Dionicio Vaca MD Work Phone: [facility] 04-18-2024 13:00-0400 Body mass index (BMI) [Ratio] 38.4 kg/m2 Dionicio Vaca MD Work Phone: [facility] 04-18-2024 13:00-0400 Body weight 111.2 kg Dionicio Vaca MD Work Phone: [facility] 04-11-2024 15:01-0400 Body height 170.2 cm [facility] Comment on above: patient reported 04-11-2024 15:01-0400 Body mass index (BMI) [Ratio] 39.16 kg/m2 [facility] 04-11-2024 15:01-0400 Body weight 113.4 kg [facility] Comment on above: patient reported 04-11-2024 15:01-0400 Heart rate 76 /min [facility] Comment on above: patient counted Encounters Encounter Date Encounter Type Care Provider Facility Start: 02-28-2025 ambulatory Justyna Colunga Facilit y:[facility] Start: 02-11-2025 End: 02-11-2025 Patient encounter procedure Justyna Ungerer CARD MAKERBelkisC [facility] Work Phone: Start: 02-11-2025 End: 02-11-2025 ambulatory Patria Packer CARD MAKER-C Work Phone: [facility] Start: 12-09-2024 End: 12-09-2024 ambulatory LUZ LEE [facility] Start: 10-09-2024 End: 10-09-2024 ambulatory PATRIA PACKER [facility] Start: 08-30-2024 End: 08-30-2024 ambulatory JUSTYNA PAIGE [facility] Start: 08-30-2024 End: 08-30-2024 ambulatory JUSTYNA PAIGE [facility] Start: 07-12-2024 End: 07-12-2024 Patient encounter procedure Dionicio Vaca MD Work Phone: [facility] Comment on above: Chronic pain of left knee (Primary Dx) Start: 06-21-2024 End: 06-21-2024 ambulatory JUSTYNA PAIGE [facility] Start: 06-10-2024 End: 06-10-2024 ambulatory Samuel Velasquez PT Work Phone: [facility] [place] [facility] [place] Comment on above: Chronic pain of left knee (Primary Dx) Start: 06-07-2024 End: 06-07-2024 ambulatory Paula Marty Lia PA-C Work Phone: [facility] Comment on above: Chronic pain of left knee (Primary Dx) Start: 06-07-2024 End: 06-07-2024 Telemedicine consultation with patient Paula Marty Fitzgerald PA-C Work Phone: [facility] Start: 06-05-2024 End: 06-05-2024 ambulatory Kendra Houser SPEECH/LANGUAGE THERAPIST Work Phone: [facility] [place] [facility] Comment on above: Chronic pain of left knee (Primary Dx) Start: 06-04-2024 End: 06-04-2024 ambulatory JUSTYNA Vargas:[facility] Start: 06-04-2024 End: 06-04-2024 Patient encounter procedure Maggie Tomy Work Phone: Podiatry Comment on above: Pes cavus of both fe et (Primary Dx); Acute left ankle pain; Chronic pain of right ankle; Ankle instability, unspecified laterality Start: 05-31-2024 End: 05-31-2024 ambulatory Rajinder Mi PT [facility] [place] Comment on above: Chronic pain of left knee (Primary Dx) Start: 05-28-2024 End: 05-28-2024 ambulatory Rajinder Mi PT [facility] [place] Comment on above: Chronic pain of left knee (Primary Dx) Start: 05-23-2024 End: 05-23-2024 ambulatory Samuel Velasquze PT Work Phone: [facility] [place] Comment on above: Chronic pain of left knee (Primary Dx) Start: 05-21-2024 End: 05-21-2024 ambulatory Samuel Velasquez PT Work Phone: [facility] [place] Comment on above: Chronic pain of left knee (Primary Dx) Start: 05-16-2024 End: 05-16-2024 ambulatory Samuel Velasquez PT Work Phone: [facility] [place] Comment on above: Chronic pain of left knee (Primary Dx) Start: 05-09-2024 End: 05-09-2024 ambulatory Samuel Velasquez PT Work Phone: [facility] [place] Comment on above: Chronic pain of left knee (Primary Dx) Start: 05-07-2024 End: 05-07-2024 Subsequent hospital visit by physician [employer] Comment on above: Acute left ankle mojgan n [M25.572] Start: 05-07-2024 End: 05-07-2024 ambulatory JUSTYNA COLUNGA Facility:[facility] Start: 05-07-2024 End: 05-07-2024 Patient encounter procedure Paula Fitzgerald PA-C Work Phone: [facility] Comment on above: Acute left ankle mojgan n (Primary Dx); Chronic pain of right ankle Start: 05-06-2024 End: 05-06-2024 ambulatory Kendra Houser SPEECH/LANGUAGE THERAPIST Work Phone: [facility] [place] [facility] [place] Comment on above: Chronic pain of left knee (Primary Dx) Start: 05-02-2024 End: 05-02-2024 ambulatory Luz Quijano SPEECH/LANGUAGE THERAPIST [facility] [place] [facility] Comment on above: Chronic pain of left knee (Primary Dx) Start: 04-29-2024 End: 04-29-2024 ambulatory Samuel Ron PT Work Phone: [facility] [place] [facility] [place] Comment on above: Chronic pain of left knee Start: 04-18-2024 ambulatory [facility] Facility: [facility] Start: 04-18-2024 End: 04-18-2024 Subsequent hospital visit by physician Dionicio Vaca MD Work Phone: [facility] Comment on above: Chronic pain of left knee [M25.562, G89.29] Start: 04-17-2024 End: 04-17-2024 Telephone encounter Jamey White PA-C Work Phone: Pre Anesthesia Comment on above: Patient Update Start: 04-16-2024 End: 04-16-2024 Telephone encounter Elsa Pagan AT Work Phone: [facility] 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 Start: 04-12-2024 End: 04-12-2024 ambulatory JUSTYNA PAIGE [facility] Start: 04-11-2024 End: 04-11-2024 Admission to establishment [facility] Start: 04-11-2024 End: 04-11-2024 ambulatory [facility] Facility:[facility] Start: 04-11-2024 End: 04-11-2024 Anesthesia consultation [facility]est[facility] Comment on above: Preop examination (P rimary Dx); Obesity, Class II, BMI 35-39.9; Hypothyroidism, unspecified type; EDS (Donte-Danlos syndrome); Gastroesophageal reflux disease, unspecified whether esophagitis present; Rash Start: 04-11-2024 End: 04-11-2024 Preprocedural examination done [facility] Work Phone: Start: 04-04-2024 End: 04-10-2024 Admission to same day surgery center Elsa Pagan AT Work Phone: [facility] Comment on above: Schedule Surgery (Le ft knee arthroscopy ) Start: 04-04-2024 End: 04-10-2024 ambulatory Elsa Stock Sol AT Work Phone: [facility] Start: 04-03-2024 End: 04-04-2024 Telephone encounter Dionicio Vaca MD Work Phone: [facility] [place] Comment on above: Patient Question Start: 03-27-2024 End: 03-27-2024 ambulatory DIONICIO VACA Facility:[facility] Start: 03-27-2024 End: 03-27-2024 Patient encounter procedure Dionicio Vaca MD Work Phone: [facility] Comment on above: Chronic pain of left knee (Primary Dx) Start: 03-25-2024 End: [facility] Start: 03-13-[facility]24 ambulatory DIONICIO Hernandez y:[id number] Start: 03-13-2024 End: 03-13-2024 Subsequent hospital visit by physician [facility] (Lg Bore/1.5t) [facility] MRI Comment on above: Chronic pain of left knee [M25.562, G89.29] Start: 01-24-2024 End: 01-24-2024 Patient encounter procedure Dionicio Vaca MD Work Phone: [facility] Comment on above: Chronic pain of left knee (Primary Dx) Start: 01-24-2024 End: 01-24-2024 ambulatory DIONICIO VACA Facility:[facility] Start: 01-24-2024 End: 01-24-2024 Subsequent hospital visit by physician Asad kalyani Coronel Work Phone: Radiology Comment on above: Pain [R52] Start: 01-05-2024 End: 01-05-2024 amb[facility] Start: 12-07-2022 End: 12-07-2022 ambulatory [facility] Work Phone: Start: 12-07-2022 End: 12-07-2022 Patient encounter procedure [facility]-Laboratory Procedures Date Procedure Procedure Detail Performing Clinician Start: 05-07-2024 Radex ankle complete minimum 3 views Paula Fitzgerald PA-C Work Phone: Start: 04-18-2024 ORTHOPEDIC SURGERY I SUAD (KRISTINA) [facility] Provider Start: 04-18-2024 End: 04-18-2024 Arthroscopy knee removal loose/foreign body Dionicio Vaca MD Work Phone: Start: 01-24-2024 Radiologic exam knee complete 4/more views Dionicio Vaca MD Work Phone: Plan of Treatment Date Care Activity Detail Author Start: 07-12-2024 End: 07-12-2024 Patient encounter procedure 07/12/2024 11:15 AM EST Office Visit [facility] [address] [place] [address] Dionicio Vaca MD [address] [place], [place] [id number] [facility] Comment on above: LEFT KNEE Start: 06-10-2024 End: 06-10-2024 ambulatory 06/10/2024 8:00 AM EST OT/PT/Speech Visit [facility] [address] [place] [address] Samuel Velasquez, PT [address] [place] [address] last visit on auth [facility] Comment on above: last visit on auth Start: 06-07-2024 End: 06-07-2024 ambulatory 06/07/2024 2:40 PM EDT [facility] [address] [place] [address] Paula Fitzgerald PA-C [address] [place] [address] [facility] Comment on above: LEFT KNEE Start: 06-05-2024 End: 06-05-2024 ambulatory 06/05/2024 8:00 AM EDT OT/PT/Speech Visit [facility] [address] [place] [address] Kendra Houser, SPEECH/LANGUAGE THERAPIST [address] [place], [place] [address] Chronic pain of left knee [M25.562, G89.29] [facility] Comment on above: Chronic pain of left knee [M25.562, G89.29] Start: 06-04-2024 End: 06-04-2024 Patient encounter procedure 06/04/2024 8:45 AM EDT Office Visit Podiatry [address], [place] [id number] Maggie Huitron [address] [facility] [place] [address] Something catches/snaps in my left foot Podiatry Comment on above: Something catches/sn aps in my left foot Start: 05-31-2024 End: 05-31-2024 ambulatory 05/31/2024 2:40 PM EDT [facility] [address] [place] [address] Paula Fitzgerald PA-C [address] [place] [address] [facility] Comment on above: LEFT KNEE Start: 05-31-2024 End: 05-31-2024 ambulatory 05/31/2024 8:45 AM EDT OT/PT/Speech Visit [facility] [address] [address] Rajinder Mi, PT Chronic pain of left knee [M25.562, G89.29] [facility] [place] Comment on above: Chronic pain of left knee [M25.562, G89.29] Start: 05-28-2024 End: 05-28-2024 ambulatory [facility] [place] Comment on above: Chronic pain of left knee [M25.562, G89.29] Start: 05-23-2024 End: 05-23-2024 ambulatory 05/23/2024 2:30 PM EDT OT/PT/Speech Visit [facility] [address] [address] Samuel Velasquez, PT [address] [place], [place] [address] Chronic pain of left knee [M25.562, G89.29] [facility] [place] Comment on above: Chronic pain of left knee [M25.562, G89.29] Start: 05-21-2024 End: 05-21-2024 ambulatory [facility] Comment on above: Chronic pain of left knee [M25.562, G89.29] ANKLE EVAL Start: 05-16-2024 End: 05-16-2024 ambulatory 05/16/2024 2:30 PM EDT OT/PT/Speech Visit [address] [address] Samuel Velasquez, PT [address] [place], [place] [address] Chronic pain of left knee [M25.562, G89.29] [facility] Physical [facility] Comment on above: Chronic pain of left knee [M25.562, G89.29] Start: 05-14-2024 End: 05-14-2024 ambulatory 05/14/2024 2:30 PM EDT OT/PT/Speech Visit [facility] [address] [place] [address] Samuel Velasquez, PT [address] [place] [address] Chronic pain of left knee [M25.562, G89.29] [facility] Comment on above: Chronic pain of left knee [M25.562, G89.29] Start: 05-09-2024 End: 05-09-2024 ambulatory [facility] Comment on above: Chronic pain of left knee [M25.562, G89.29] NEW ORDERS IN [facility] Start: 05-07-2024 End: 05-07-2024 Patient encounter procedure 05/07/2024 9:30 AM EDT Office Visit [facility] [address] [place] [address] Paula Fitzgerald PA-C [address] [place] [address] LEFT KNEE [facility] Comment on above: LEFT KNEE Start: 05-06-2024 End: 05-06-2024 ambulatory 05/06/2024 2:45 PM EDT OT/PT/Speech Visit [facility] [place] [address] [place] [address] Kendra Houser, SPEECH/LANGUAGE THERAPIST [address] [place] [address] Chronic pain of left knee [M25.562, G89.29] [facility] Comment on above: Chronic pain of left knee [M25.562, G89.29] Start: 05-03-2024 End: 05-03-2024 Patient encounter procedure 05/03/2024 11:30 AM EDT Office Visit [facility] [address] [place] [address] Paula Fitzgerald PABelkisC [address] [place] [address] LEFT KNEE Sports [facility] Comment on above: LEFT KNEE Start: 05-02-2024 End: 05-02-2024 ambulatory 05/02/2024 2:45 PM EDT OT/PT/Speech Visit [facility] [place] [address] [place] [address] Luz Quijano PTA Chronic pain of left knee [M25.562, G89.29] [facility] Comment on above: Chronic pain of left knee [M25.562, G89.29] Start: 04-29-2024 End: 04-29-2024 ambulatory 04/29/2024 3:00 PM EDT OT/PT/Speech Visit [facility] [address] [place] [address] Samuel Velasquez, PT [address] [place] [address] Chronic pain of left knee [M25.562, G89.29] [facility] Comment on above: Chronic pain of left knee [M25.562, G89.29] Start: 04-18-2024 End: 04-18-2024 Anesthesia consultation 04/18/2024 3:00 PM EDT Anesthesia Event [facility] [address] [place] [address] Sirisha Barkley, YOVANI.TIMBER REPAIRER [address] [place] [address] [facility] Start: 04-18-2024 End: 04-18-2024 Admission to same day surgery center [facility] Comment on above: ARTHROSCOPY KNEE REM OVAL OF LOOSE OR FOREIGN BODY BILATERAL Start: 04-18-2024 End: 04-18-2024 Arthroscopy knee removal loose/foreign body [facility] Start: 04-18-2024 Subsequent hospital visit by physician [facility] Comment on above: Chronic pain of left knee [M25.562, G89.29] Start: 04-11-2024 End: 04-11-2024 Anesthesia consultation 04/11/2024 3:00 PM EDT PAT Pre Anesthesia [address] [place] [address] virtual visit [phone] Pre Anesthesia Comment on above: virtual visit Start: 04-07-2024 Covid-19 Vaccine ( season) Covid-19 Vaccine () [facility] Start: 04-07-2024 Covid-19 Vaccine () Covid-19 Vaccine () [facility] Start: 04-07-2024 Influenza vaccination [facility] Start: 08-07-2023 Behavioral Health Screening Behavioral Health Screening [facility] Start: 04-07-2023 Covid-19 Vaccine () Covid-19 Vaccine () [facility] Start: 01-12-2017 Screening for malign ant neoplasm of cervix Cervical Cancer Screening [facility] Start: 01-12-2015 Hepatitis B Vaccine (1 of 3 - 19+ 3-dose series) Hepatitis B Vaccine (1 of 3 - 19+ 3-dose series) [facility] Start: 01-12-2015 Urine microalbumin profile DTaP,Tdap,Td Vaccine (1 - Tdap) [facility] Start: 01-12-2014 Annual PCP Team Lead Setter carlos Disease Visit Annual PCP Team Chronic Disease Visit [facility] Start: 01-12-2014 Anxiety Screening Anxiety Screening [facility] Start: 01-12-2014 Depression Screening Depression Scre ening [facility] Start: 01-12-2014 HIV screening HIV Screening [facility] IgG [Mass/volume] in Serum or Plasma [facility] End: 02-22-2025 MR Knee - left WO contrast MRI KNEE WO IVCON LEFT Radiology Routine Chronic pain of left knee 1 Occurrences starting 01/24/2024 until 02/22/2025 [facility] Work Phone: Comment on above: 1 Occurrences starti ng 01/24/2024 until 02/22/2025 MR Knee - left WO contrast MRI KNEE WO IVCON LEFT Radiology Routine Chronic pain of left knee 03/13/2024 3:20 PM EDT [facility] Work Phone: SURGICAL PATHOLOGY [facility] Work Phone: Comment on above: Release Upon Aide taylor for 1 Occurrences starting 04/18/2024 [facility] End: 06-06-2025 XR Ankle - right AP and Lateral and oblique XR ANKLE GENERAL 3V AP/LAT/OBL RIGHT Radiology Routine Chronic pain of right ankle 1 Occurrences starting 05/07/2024 until 06/06/2025 [facility] Work Phone: Comment on above: 1 Occurrences starti ng 05/07/2024 until 06/06/2025 Payers Date Payer Category Payer Self-pay 2022 Medicaid [place] [employer] [place] [employer] [id number] 2022-Present [phone] [place] [id number] Medicaid [id number] 2022 Medicaid [id number] 1996 Unknown [id number] 1996 Unknown [id number] 1996 Unknown [id number] 1996 Unknown [id number] 1996 Unknown [id number] 1996 Unknown [id number] 1996 Unknown [id number] 1996 Unknown [id number] Unknown [id number] Unknown [id number] Social History Date Type Detail Facility [facility] if ever smoked [facility] Work Phone: Start: 1995 Sex Assigned At Female [facility] Tobacco smoking consumption unknown [facility] Start: 01-24-2024 End: 07-11-2024 History of Social function [facility] Start: 01-24-2024 End: 07-11-2024 Area Deprivation Index [facility] National Score (1-10 0), lower number is lower risk 62 [facility] Start: 1996 Sex Assigned At Not on file [facility] Start: 04-11-2024 End: 02-11-2025 Tobacco smoking status NHIS Never smoked tobacco [facility] Start: 04-11-2024 Tobacco use and exposure Smokeless tobacco non-user [facility] Start: 04-11-2024 End: 07-12-2024 Alcoholic beverage intake Lifetime non-drinker (finding) [facility] Start: 05-07-2024 Gender identity Identifies as female gender (finding) [facility] Sexual Orientation Heterosexual (finding) [facility] Clinical Notes 01-24-2024 to 09-04-2024 Dionicio Vaca MD - 07/12/2024 11:17 AM Samuel Avila PT - 06/10/2024 9:04 AM Samuel Avila PT - 06/10/2024 8:22 AM Samuel Avila PT - 06/10/2024 8:16 AM ESTPatient Instructions Note Date & Type Note Facility 09-04-2024 Note HNO ID: [id number] Author: SAMUEL VELASQUEZ PT, DPT Service: ? Author Type: Physical Therapist Type: Progress Notes Filed: 09/04/2024 15:09 Note Text: 09/04/2024 [facility] REHABILITATION AND SPORTS THERAPY PHYSICAL THERAPY DISCONTINUANCE OF CARE Plan of Care Period: Start of Care Date: 04/29/24 Last Visit Date: 06/10/2024 Therapy Program: Patient did not return for follow up care as planned. Please refer to last visit note for interventions provided for this episode of care. Assessment: Unable to formally assess goal achievement. Reason for Discontinuation of Care: Patient has not returned to therapy or scheduled additional follow-up appointments. Samuel Velasquez, PT, DPT [facility] 07-12-2024 History of Presen t illness Narrative Images from the original note were not included. DEPARTMENT OF ORTHOPAEDICS July 12, 2024 CC: left knee postop HPI: Patient returns postop left knee hardware removal and diagnostic arthroscopy. She is progressing well and is doing a home rehab program. She has intermittent mechanical symptoms. She has intermittent soreness that is manageable. She reports improvement from preoperative status. PAIN EVALUATION 07/11/20242000 Pain Level: 2 Pain Location: Knee-Left Description: Aching Frequency: Intermittent Past Medical History: PAST MEDICAL HISTORY Diagnosis Date EDS (Donte-Danlos syndrome) GERD (gastroesophageal reflux disease) Hypothyroidism Obesity, Class II, BMI 35-39.9 Family History: FAMILY HISTORY Problem Relation Age of Onset No Known Problems Mother Hypertension Father No Known Problems Sister No Known Problems Sister Diabetes Maternal Grandmother Dementia Maternal Grandfather Parkinson's Maternal Grandfather Heart Attack Maternal Grandfather Anesthesia Problems No Family History Social History: Medications: acetaminophen (ACETAMINOPHEN EXTRA STRENGTH) 500 mg tablet Take 1 tablet every 4 to 6 hours as needed for pain ibuprofen (MOTRIN) 600 mg tablet Take 1 tablet every 6 o 8 hours as needed for pain or swelling CARD MAKER THYROID 120 mg tablet Take 120 mg by mouth once daily. thyroid (CARD MAKER THYROID) 15 mg tablet Take 15 mg by mouth once daily. Total 135 mg daily Allergies: ALLERGIES No Known Allergies Physical Exam: 0/-5/130 range of motion bilaterally. No effusion bilaterally. Mild lateral joint line tenderness on the left. She has tenderness palpation over the anteromedial scar. Stable to varus valgus stress at 0 and 3 degrees. Stable to Yohannes and posterior drawer. Review of Systems: GENERAL: No weight loss, malaise or fevers MUSCULOSKELETAL: See HPI Imaging: Assessment/Plan: Left knee postop doing well Plan for the patient reviewed. Continue with home-based rehab program. Strong focus on gluteal and quadricep strengthening. Patient with a history of Donte-Danlos syndrome and will need to be very focused on overall strengthening program to help minimize mechanical symptoms and function. She voiced understanding. She will follow-up on an as-needed basis. Dionicio Vaca MD This note was partially generated using [employer] voice recognition system, and there may be some incorrect words, spellings, and punctuation that were not noted in checking the note before saving. Medical Decision Making: Medical Decision Making Level: 1 - N/A documented in this encounter [facility] 06-10-2024 Note HNO ID: [id number] Author: SAMUEL VELASQUEZ PT Service: ? Author Type: Physical Therapist Type: Progress Notes Filed: 06/10/2024 09:06 Note Text: Episode Visit Count: 11 Therapist That Will Accept/Oversee The Plan Of Care: Samuel Velasquez PT, DPT Start of Care Date: 04/29/24 Onset Date: 08/26/19 Plan of Care Certification Date: 04/29/24 Next Certification Due Date: 06/20/24 Patient Identified by Name and Date of : Yes REHABILITATION AND SPORTS THERAPY PHYSICAL THERAPY DISCONTINUANCE OF CARE PLAN OF CARE UPDATE: Assessment: Rere Knutson is discontinued from Physical Therapy services due to goal achievement and maximal benefit.. Patient was seen for 11 visits from Start of Care Date: 04/29/24 to 06/10/2024 and treatment included: Therapeutic exercise, Neuromuscular re-education, Manual therapy, Therapeutic activities, Patient/Family/Caregiver Education, and Modalities: Vasopneumatic Treatment. Given her current status she will transition to an at home program. She was educated on calling into the clinic if any issues should arise. Goals for Episode of Care: established 04/29/24 [place] in home exercise program. Goal met: 05/23/24 Patient will decrease pain to 0/10 at rest and with functional activities to allow patient to improve ambulation and standing tolerance for ADLs. Progressin06/10/24 Patient will increase active ROM of L knee flexion to 140 to match the opposite extremity to allow pt to to improve postural alignment, to improve performance of ADLs, to improve gait mechanics / gait pattern , and to decrease falls risks . Goal Met: 06/10/24 Patient will demonstrate increase in LLE strength to 5/5 during manual muscle testing in order to improve function for home management tasks, leisure / recreation skills, light functional tasks, moderate to heavy functional tasks, prior functional tasks, and work tasks. Progressin06/10/24 Pt will improve postural awareness to allow FWB through LLE. Goal met: 06/10/24 Pt will increase her ability to perform a minisquat with FWB through both extremities. Goal met: 06/10/24 Patient Goals: Decrease pain and strengthen L knee to be able to climb stairs normally and return to sports in her freetime SUBJECTIVE: Pt reports mild soreness this morning. Overall states she feels stronger and has more support through her L knee now compared to starting therapy 6 weeks ago.. Pain: Pain Pain Level: (1.5) Pain Location: Knee - Left Description: Sharp Post Treatment Pain Post Treatment Pain Level: No Change PROMIS Scales 05/28/2024 04/28/2024 03/21/2024 Higher is Better Phys Func - Score 47 (within normal limits) 48 (within normal limits) 43 (mild dysfunction) Phys Func - Percentile 38 42 24 Self-Eff Symptom - Score 48 (Average) 45 (Average) Self-Eff Symptom - Percentile 42 31 T-scores: mean of general population = 50. 5 points is clinically meaningfully difference Percentiles provide an indication of how the patient's score ranks in relation to the general population. Higher percentile rankings indicate better function/quality of life. 50th percentile is the average of the general population and indicates half of respondents had a worse score. OBJECTIVE MEASURES WITH LEVEL OF FUNCTION: LE AROM R Knee Flexion: 140 Degrees L Knee Extension: 0 Degrees L Knee Flexion: 140 Degrees LE Strength L Hip Flexion (L2): 4+/5 L Hip ABduction: 4+/5 L Hip ADduction: 4+/5 L Knee Extension (L3): 4+/5 L Knee Flexion: 4+/5 L Ankle Dorsiflexion (L4): 4-/5 (4+/5 after MDT extension) L Ankle Plantar Flexion: 4-/5 (4+/5 after MDT extension) L Ankle Inversion: 4-/5 (4+/5 after MDT extension) L Ankle Eversion: 4-/5 (4+/5 after MDT extension) TREATMENT: Therapeutic Exercise: 1: upright bike x 5' (knee mobility) (every 30sec faster interval style) 2: single leg bridge (LLE focus maintaing SLR) 2x 15 3: bridge + HS walkouts 4: LAQ machine (LLE eccentric focus) 2pl 3x 15 5: LP 8pl x 15 6: 2-1 LP (LLE focus on eccentric phase) 5pl 2x 15 Skilled Intervention: Patient was educated in proper exercise technique and purpose for exercises. Skilled judgment was used in selection of appropriate interventions. Correct performance of therapeutic exercises was facilitated with verbal, visual, and tactile cuing. Manual Therapy: 1: MDT assessment for ankle and low back Skilled Intervention: data collection for MDT assessment Home Exercise Program Assigned: 1: Access Code: [email or web address] URL: [email or web address] Date: 06/10/2024 Prepared by: Samuel Velasquez Exercises - Active Straight Leg Raise with Quad Set - 1 x daily - 5 x weekly - 1-3 sets - 10 reps - Sidelying Hip Abduction - 1 x daily - 7 x weekly - 3 sets - 10 reps - Hip Extension with Leg Straight - 1 x daily - 7 x weekly - 3 sets - 10 reps - Supine Bridge - 1 x daily - 7 x weekly - 3 sets - 10 reps - Clamshell with Resistance - 1 x lalita (more content not included)... [facility] 06-10-2024 History of Presen t illness Narrative Images from the original note were not included. Episode Visit Count: 11 Therapist That Will Accept/Oversee The Plan Of Care: Samuel Velasquez PT, DPT Start of Care Date: 04/29/24 Onset Date: 08/26/19 Plan of Care Certification Date: 04/29/24 Next Certification Due Date: 06/20/24 Patient Identified by Name and Date of : Yes REHABILITATION AND SPORTS THERAPY PHYSICAL THERAPY DISCONTINUANCE OF CARE PLAN OF CARE UPDATE: Assessment: Rere Knutson is discontinued from Physical Therapy services due to goal achievement and maximal benefit.. Patient was seen for 11 visits from Start of Care Date: 04/29/24 to 06/10/2024 and treatment included: Therapeutic exercise, Neuromuscular re-education, Manual therapy, Therapeutic activities, Patient/Family/Caregiver Education, and Modalities: Vasopneumatic Treatment. Given her current status she will transition to an at home program. She was educated on calling into the clinic if any issues should arise. Goals for Episode of Care: established 04/29/24 [place] in home exercise program. Goal met: 05/23/24 Patient will decrease pain to 0/10 at rest and with functional activities to allow patient to improve ambulation and standing tolerance for ADLs. Progressin06/10/24 Patient will increase active ROM of L knee flexion to 140 to match the opposite extremity to allow pt to to improve postural alignment, to improve performance of ADLs, to improve gait mechanics / gait pattern , and to decrease falls risks . Goal Met: 06/10/24 Patient will demonstrate increase in LLE strength to 5/5 during manual muscle testing in order to improve function for home management tasks, leisure / recreation skills, light functional tasks, moderate to heavy functional tasks, prior functional tasks, and work tasks. Progressin06/10/24 Pt will improve postural awareness to allow FWB through LLE. Goal met: 06/10/24 Pt will increase her ability to perform a minisquat with FWB through both extremities. Goal met: 06/10/24 Patient Goals: Decrease pain and strengthen L knee to be able to climb stairs normally and return to sports in her freetime SUBJECTIVE: Pt reports mild soreness this morning. Overall states she feels stronger and has more support through her L knee now compared to starting therapy 6 weeks ago.. Pain: Pain Pain Level: (1.5) Pain Location: Knee - Left Description: Sharp Post Treatment Pain Post Treatment Pain Level: No Change PROMIS Scales 05/28/2024 04/28/2024 03/21/2024 Higher is Better Phys Func - Score 47 (within normal limits) 48 (within normal limits) 43 (mild dysfunction) Phys Func - Percentile 38 42 24 Self-Eff Symptom - Score 48 (Average) 45 (Average) Self-Eff Symptom - Percentile 42 31 T-scores: mean of general population = 50. 5 points is clinically meaningfully difference Percentiles provide an indication of how the patient's score ranks in relation to the general population. Higher percentile rankings indicate better function/quality of life. 50th percentile is the average of the general population and indicates half of respondents had a worse score. OBJECTIVE MEASURES WITH LEVEL OF FUNCTION: LE AROM R Knee Flexion: 140 Degrees L Knee Extension: 0 Degrees L Knee Flexion: 140 Degrees LE Strength L Hip Flexion (L2): 4+/5 L Hip ABduction: 4+/5 L Hip ADduction: 4+/5 L Knee Extension (L3): 4+/5 L Knee Flexion: 4+/5 L Ankle Dorsiflexion (L4): 4-/5 (4+/5 after MDT extension) L Ankle Plantar Flexion: 4-/5 (4+/5 after MDT extension) L Ankle Inversion: 4-/5 (4+/5 after MDT extension) L Ankle Eversion: 4-/5 (4+/5 after MDT extension) TREATMENT: Therapeutic Exercise: 1: upright bike x 5' (knee mobility) (every 30sec faster interval style) 2: single leg bridge (LLE focus maintaing SLR) 2x 15 3: bridge + HS walkouts 4: LAQ machine (LLE eccentric focus) 2pl 3x 15 5: LP 8pl x 15 6: 2-1 LP (LLE focus on eccentric phase) 5pl 2x 15 Skilled Intervention: Patient was educated in proper exercise technique and purpose for exercises. Skilled judgment was used in selection of appropriate interventions. Correct performance of therapeutic exercises was facilitated with verbal, visual, and tactile cuing. Manual Therapy: 1: MDT assessment for ankle and low back Skilled Intervention: data collection for MDT assessment Home Exercise Program Assigned: 1: Access Code: [email or web address] URL: [email or web address] Date: 06/10/2024 Prepared by: Samuel Velasquez Exercises - Active Straight Leg Raise with Quad Set - 1 x daily - 5 x weekly - 1-3 sets - 10 reps - Sidelying Hip Abduction - 1 x daily - 7 x weekly - 3 sets - 10 reps - Hip Extension with Leg Straight - 1 x daily - 7 x weekly - 3 sets - 10 reps - Supine Bridge - 1 x daily - 7 x weekly - 3 sets - 10 reps - Clamshell with Resistance - 1 x daily - 7 x weekly - 3 sets - 10 reps - Bird Dog - 1 x daily - 7 x weekly - 3 sets - 10 reps - Single Leg Stance - 1 x daily - 7 x weekly - 3 sets - 10 reps - Supine Bridge with Resistance Band - 1 x daily - 7 x weekly - 3 sets - 10 reps - Side Stepping with Resistance at Thighs - 1 x daily - 7 x weekly - 3 sets - 10 reps - Forward Monster Walks - 1 x daily - 7 x weekly - 3 sets - 10 reps - Forward Step Down with Heel Tap and Counter Support - 1 x daily - 7 x weekly - 3 sets - 10 reps - Bug - 1 x daily - 7 x weekly - 3 sets - 10 reps 2: Access Code: [email or web address] URL: [email or web address] Date: 06/10/2024 Prepared by: Samuel Velasquez Exercises - Gastroc Stretch on Wall - 1 x daily - 7 x weekly - 3 sets - 10 reps - Long Sitting Calf Stretch with Strap - 1 x daily - 7 x weekly - 3 sets - 10 reps - Ankle Dorsiflexion with Resistance - 1 x daily - 7 x weekly - 3 sets - 10 reps - CLX Ankle Dorsiflexion and Eversion - 1 x daily - 7 x weekly - 3 sets - 10 reps - Ankle Inversion with Resistance - 1 x daily - 7 x weekly - 3 sets - 10 reps - Ankle Eversion with Resistance - 1 x daily - 7 x weekly - 3 sets - 10 reps - Ankle Plantar Flexion with Resistance - 1 x daily - 7 x weekly - 3 sets - 10 reps - Seated Ankle Inversion with Resistance - 1 x daily - 7 x weekly - 3 sets - 10 reps - Heel Raises with Counter Support - 1 x daily - 7 x weekly - 3 sets - 10 reps Billing Therapeutic Exercise Treatment Minutes: 30 Manual TherapyTreatment Minutes: 10 Skilled Treatment Time Minutes (timed and untimed codes): 40 Total Session Time (minutes): 40 Session Start Time : 0800 Session Stop Time : 0840 Samuel Velasquez PT, DPT Program_ID:[id number] Access Code: [email or web address] URL: [email or web address] Date: 06-10-2024 Prepared By: Samuel Velasquez Program Notes Exercises - Gastroc Stretch on Wall - 1 x daily - 7 x weekly - 3 sets - 10 reps - Long Sitting Calf Stretch with Strap - 1 x daily - 7 x weekly - 3 sets - 10 reps - Ankle Dorsiflexion with Resistance - 1 x daily - 7 x weekly - 3 sets - 10 reps - CLX Ankle Dorsiflexion and Eversion - 1 x daily - 7 x weekly - 3 sets - 10 reps - Ankle Inversion with Resistance - 1 x daily - 7 x weekly - 3 sets - 10 reps - Ankle Eversion with Resistance - 1 x daily - 7 x weekly - 3 sets - 10 reps - Ankle Plantar Flexion with Resistance - 1 x daily - 7 x weekly - 3 sets - 10 reps - Seated Ankle Inversion with Resistance - 1 x daily - 7 x weekly - 3 sets - 10 reps - Heel Raises with Counter Support - 1 x daily - 7 x weekly - 3 sets - 10 reps Program_ID:[id number] Access Code: [email or web address] URL: [email or web address] Date: 06-10-2024 Prepared By: LUZ QUIJANO Program Notes Exercises - Active Straight Leg Raise with Quad Set - 1 x daily - 5 x weekly - 1-3 sets - 10 reps - Sidelying Hip Abduction - 1 x daily - 7 x weekly - 3 sets - 10 reps - Hip Extension with Leg Straight - 1 x daily - 7 x weekly - 3 sets - 10 reps - Supine Bridge - 1 x daily - 7 x weekly - 3 sets - 10 reps - Clamshell with Resistance - 1 x daily - 7 x weekly - 3 sets - 10 reps - Bird Dog - 1 x daily - 7 x weekly - 3 sets - 10 reps - Single Leg Stance - 1 x daily - 7 x weekly - 3 sets - 10 reps - Supine Bridge with Resistance Band - 1 x daily - 7 x weekly - 3 sets - 10 reps - Side Stepping with Resistance at Thighs - 1 x daily - 7 x weekly - 3 sets - 10 reps - Forward Monster Walks - 1 x daily - 7 x weekly - 3 sets - 10 reps - Forward Step Down with Heel Tap and Counter Support - 1 x daily - 7 x weekly - 3 sets - 10 reps - Bug - 1 x daily - 7 x weekly - 3 sets - 10 reps documented in this encounter [facility] 06-07-2024 Note HNO ID: [id number] Author: PAULA FITZGERALD PA-C Service: ? Author Type: Physician Maintenance Helper Type: Progress Notes Filed: 06/17/2024 09:12 Note Text: POST OP DISTANCE HEALTH VIRTUAL VISIT FOLLOW UP DOCUMENTATION NOTE I have communicated my name and active licensure. The patient's identity and physical location were verified at the time of this visit. Either the patient or their legal unit support representative has been informed of the risks and benefits of -- and alternatives to -- treatment through a remote evaluation and consents to proceed with the evaluation remotely. [employer] Platform: [employer] Virtual Visit People present : Paula Fitzgerald PA-C and Patient Time Spent for video encounter, record review and documentation: 16 minutes CHIEF COMPLAINT (CC): post op HISTORY OF PRESENT ILLNESS (HPI): 6 weeks s/p left knee scope debridement ACL scar, removal painful tibial screw. Overall feels she is doing better in regards to pain and function Still sensitive in the area of where the tibial screw was removed. No systemic symptoms or other concerns. PT is going well. EXAMINATION: There is no height or weight on file to calculate BMI. This examination was performed via video enabled technology. Patient does not appear to be in any acute distress Patient is alert and oriented with normal affect Left knee Examination Inspection: Post-surgical scar appears clean, dry and intact with no signs of drainage or overlying skin infection No obvious swelling noted Range of motion (patient performed these range of motions with my instruction via the video enabled technology): 0 degrees flexion to 120 degrees extension Palpation (patient localized these landmarks with my instruction via the video enabled technology): Pain localized to the proximal tibial scar and medial portal incision Special testing (patient performed these maneuvers on themselves with my instruction via the video enabled technology): Straight leg raise without leg Neurologic: Intact sensation testing of the lower extremities with no dysesthesia Impression: 6 weeks s/p left knee arthroscopy Plan: Discussed Advance PT and activities per protocol. Precautions reinforced. Follow-up: [address] Nola Fitzgerald MS, RAMEZ [facility] 06-07-2024 History of Presen t illness Narrative POST OP DISTANCE HEALTH VIRTUAL VISIT FOLLOW UP DOCUMENTATION NOTE I have communicated my name and active licensure. The patient's identity and physical location were verified at the time of this visit. Either the patient or their legal unit support representative has been informed of the risks and benefits of -- and alternatives to -- treatment through a remote evaluation and consents to proceed with the evaluation remotely. [employer] Platform: [employer] Virtual Visit People present : Paula Fitzgerald PA-C and Patient Time Spent for video encounter, record review and documentation: 16 minutes CHIEF COMPLAINT (CC): post op HISTORY OF PRESENT ILLNESS (HPI): 6 weeks s/p left knee scope debridement ACL scar, removal painful tibial screw. Overall feels she is doing better in regards to pain and function Still sensitive in the area of where the tibial screw was removed. No systemic symptoms or other concerns. PT is going well. EXAMINATION: There is no height or weight on file to calculate BMI. This examination was performed via video enabled technology. Patient does not appear to be in any acute distress Patient is alert and oriented with normal affect Left knee Examination Inspection: Post-surgical scar appears clean, dry and intact with no signs of drainage or overlying skin infection No obvious swelling noted Range of motion (patient performed these range of motions with my instruction via the video enabled technology): 0 degrees flexion to 120 degrees extension Palpation (patient localized these landmarks with my instruction via the video enabled technology): Pain localized to the proximal tibial scar and medial portal incision Special testing (patient performed these maneuvers on themselves with my instruction via the video enabled technology): Straight leg raise without leg Neurologic: Intact sensation testing of the lower extremities with no dysesthesia Impression: 6 weeks s/p left knee arthroscopy Plan: Discussed Advance PT and activities per protocol. Precautions reinforced. Follow-up: [address] Nola Fitzgerald, MS, RAMEZ documented in this encounter [facility] 06-05-2024 Note HNO ID: [id number] Author: KENDRA HOUSER PTA Service: ? Author Type: Medical Record Retrieval Specialist Type: Progress Notes Filed: 06/05/2024 08:55 Note Text: Episode Visit Count: 10 Therapist That Will Accept/Oversee The Plan Of Care: Samuel Velasquez PT, DPT Start of Care Date: 04/29/24 Onset Date: 08/26/19 Plan of Care Certification Date: 04/29/24 Next Certification Due Date: 06/20/24 Patient Identified by Name and Date of : Yes REHABILITATION AND SPORTS THERAPY PHYSICAL THERAPY TREATMENT NOTE ASSESSMENT: Rere Knutson tolerated the session with no issues. She demonstrated good tolerance to current left knee strength and stability exercises. The patient will continue to benefit from ongoing skilled physical therapy to progress toward set goals. PLAN FOR NEXT VISIT: Next visit last on . Additional orders placed for B ankle stability. continue progressionof L knee in CKC phase and single leg stability with various balance exercises SUBJECTIVE: Patient reports she had an appointment with podiatry yesterday and he put an order in for physical therapy. Pain: Pain Pain Level: 1 Pain Location: Knee - Left Post Treatment Pain Post Treatment Pain Level: No Change OBJECTIVE MEASURES WITH LEVEL OF FUNCTION: There were no objective measurements taken on this date. See assessment for patient response to treatment. TREATMENT: Therapeutic Exercise: 1: upright bike x 5' (knee mobility) 2: Standing gastroc stretch off step 2x30 hold, B 3: Standing HS stretch at step 3x20 hold, L 4: SL LLE Heel raise on stairs; ensuring a slow decline 2x10 5: Single leg press 4pl 3x10, L 6: Standing multi hip (flexion/abduction) 18.75#, B 2x10 7: 8 forward step ups with knee drive 2x10, B 8: 6 lateral step ups with knee drive 2x10, B 10: Side stepping 2x20ft ea direction GTB around ankles 11: Monster walks 2x20ft forward/backward GTB around ankles 12: Rebounder SLS and tandem ball toss 7# 1x20, B Skilled Intervention: Patient was educated in proper exercise technique and purpose for exercises. Skilled judgment was used in selection of appropriate interventions. Correct performance of therapeutic exercises was facilitated with verbal and visual cuing. Billing Therapeutic Exercise Treatment Minutes: 38 Skilled Treatment Time Minutes (timed and untimed codes): 38 Total Session Time (minutes): 38 Session Start Time : 807 Session Stop Time : 845 Kendra Houser SPEECH/LANGUAGE THERAPIST [facility] 06-05-2024 History of Presen t illness Narrative Episode Visit Count: 10 Therapist That Will Accept/Oversee The Plan Of Care: Samuel Velasquez PT, DPT Start of Care Date: 04/29/24 Onset Date: 08/26/19 Plan of Care Certification Date: 04/29/24 Next Certification Due Date: 06/20/24 Patient Identified by Name and Date of : Yes REHABILITATION AND SPORTS THERAPY PHYSICAL THERAPY TREATMENT NOTE ASSESSMENT: Rere Knutson tolerated the session with no issues. She demonstrated good tolerance to current left knee strength and stability exercises. The patient will continue to benefit from ongoing skilled physical therapy to progress toward set goals. PLAN FOR NEXT VISIT: Next visit last on . Additional orders placed for B ankle stability. continue progressionof L knee in CKC phase and single leg stability with various balance exercises SUBJECTIVE: Patient reports she had an appointment with podiatry yesterday and he put an order in for physical therapy. Pain: Pain Pain Level: 1 Pain Location: Knee - Left Post Treatment Pain Post Treatment Pain Level: No Change OBJECTIVE MEASURES WITH LEVEL OF FUNCTION: There were no objective measurements taken on this date. See assessment for patient response to treatment. TREATMENT: Therapeutic Exercise: 1: upright bike x 5' (knee mobility) 2: Standing gastroc stretch off step 2x30 hold, B 3: Standing HS stretch at step 3x20 hold, L 4: SL LLE Heel raise on stairs; ensuring a slow decline 2x10 5: Single leg press 4pl 3x10, L 6: Standing multi hip (flexion/abduction) 18.75#, B 2x10 7: 8 forward step ups with knee drive 2x10, B 8: 6 lateral step ups with knee drive 2x10, B 10: Side stepping 2x20ft ea direction GTB around ankles 11: Monster walks 2x20ft forward/backward GTB around ankles 12: Rebounder SLS and tandem ball toss 7# 1x20, B Skilled Intervention: Patient was educated in proper exercise technique and purpose for exercises. Skilled judgment was used in selection of appropriate interventions. Correct performance of therapeutic exercises was facilitated with verbal and visual cuing. Billing Therapeutic Exercise Treatment Minutes: 38 Skilled Treatment Time Minutes (timed and untimed codes): 38 Total Session Time (minutes): 38 Session Start Time : 807 Session Stop Time : 845 Kendra Houser PTA documented in this encounter [facility] 06-04-2024 Note HNO ID: [id number] Author: SELENE JORGENSEN LPN Service: ? Author Type: LICENSED NURSE Type: Progress Notes Filed: 06/04/2024 10:14 Note Text: Per Rere Batista was provided with powerstep original inserts, size 9, and instructed/educated in its application, wear, and care. All questions were answered, and patient was able to demonstrate competence with the necessary skills to utilize the above equipment. Selene Jorgensen LPN [facility] 06-04-2024 History of Presen t illness Narrative Per Rere Batista was provided with powerstep original inserts, size 9, and instructed/educated in its application, wear, and care. All questions were answered, and patient was able to demonstrate competence with the necessary skills to utilize the above equipment. Selene Jorgensen LPN Images from the original note were not included. Consultation requested by Dr. Fitzgerald for an opinion regarding ankle pain. My final recommendations will be communicated back to the requesting physician by way of shared Medical record or letter to requesting physician via [place] mail. Initial Podiatric Office Visit: Chief Complaint: This 29 year old female who presents with chief complaint:b/l ankle pain HPI Patient presents to clinic with complaint of b/l ankle On her right ankle, she rolled her right ankle back on January 05. She never went to see anyone for the pain until later in the summer. She had xrays that were negative. She still has cramping. She does nothing for the pain On her left ankle, she feels that her left ankle is catching and popping. She does report some soreness with continued activity. PAIN EVALUATION 05/28/2024 0919 06/04/2024 0839 Pain Level: 4 2 Pain Location: Ankle-Left -- right and left foot Description: Aching;Sore;Stiffness Aching;Cramping;Tightness Duration Units: Weeks Months Frequency: Intermittent Continuous Intervention/Comfort measure: Cold -- No results found for: HBA1C PCP: Justyna Colunga CNP PAST MEDICAL HISTORY Diagnosis Date EDS (Donte-Danlos syndrome) GERD (gastroesophageal reflux disease) Hypothyroidism Obesity, Class II, BMI 35-39.9 Current Outpatient Medications Medication Sig acetaminophen (ACETAMINOPHEN EXTRA STRENGTH) 500 mg tablet Take 1 tablet every 4 to 6 hours as needed for pain ibuprofen (MOTRIN) 600 mg tablet Take 1 tablet every 6 o 8 hours as needed for pain or swelling CARD MAKER THYROID 120 mg tablet Take 120 mg by mouth once daily. thyroid (CARD MAKER THYROID) 15 mg tablet Take 15 mg by mouth once daily. Total 135 mg daily No current facility-administered medications for this visit. ALLERGIES No Known Allergies PAST SURGICAL HISTORY Procedure Laterality Date PAST SURGICAL HISTORY OF Left 2017 knee ACL PAST SURGICAL HISTORY OF Left breast lumpectomy PAST SURGICAL HISTORY OF Right breast lumpectomy FAMILY HISTORY Problem Relation Age of Onset No Known Problems Mother Hypertension Father No Known Problems Sister No Known Problems Sister Diabetes Maternal Grandmother Dementia Maternal Grandfather Parkinson's Maternal Grandfather Heart Attack Maternal Grandfather Anesthesia Problems No Family History Social History Tobacco Use Smoking status: Never Smokeless tobacco: Never Vaping Use Vaping status: Never Used Substance Use Topics Alcohol use: Never Drug use: Never REVIEW OF SYSTEMS GENERAL: Negative for Malaise, significant weight loss, fever RESPIRATORY: Negative for cough, wheezing and shortness of breath CARDIOVASCULAR: Negative for chest pain, leg swelling and palpitations GI: Negative for abdominal discomfort, blood in stools or black stools and change in bowel habits : Negative for dysuria, frequency and incontinence MUSCULOSKELETAL: Negative for joint pain or swelling, back pain, and muscle pain. SKIN: Negative for lesions, rash, and itching. HEMATOLOGY/LYMPHOLOGY Negative for prolonged bleeding, bruising easily, and swollen nodes. ENDOCRINE: Negative for cold or heat intolerance, polyuria, polydipsia and goiter. NEURO: negative Physical Exam: Constitutional: Pt is a well developed 29 year old female who is alert, oriented and cooperative Eyes: Following during examination. No redness or drainage. Respiratory: RR normal and nonlabored. Even breathing. No evidence of distress or shortness of breath. Psychology: Patient is engaged during conversation. Normal affect and mood. Does not appear depressed or anxious during encounter. Vascular: Dorsalis pedis and posterior tibial pulses palpable as b/l Capillary Fill time < 5 seconds to digits 1-5 b/l Skin temperature warm to warm proximal to distal b/l Hair growth present to digits Neurological: intact light touch/epicritic sensation b/l intact protective sensation no significant neurological deficits Dermatological: Nails 1-5 b/l appear normal. Webspaces clean and dry 1-4 b/l. Skin appears well hydrated and supple. good color, texture, turgor. No open lesions present. No callosities present. Musculoskeletal/Orthopaedic: Patient has pain to palpation of right lateral ankle. 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 MTJ, STJ are full and free of pain and crepitus. +5/5 muscle strength dorsiflexion, plantarflexion, inversion, eversion b/l No laxity with anterior drawer No subluxing peroneal Radiographs: 3 views left ankle reviewed June 04, 2024: I have personally reviewed and interpreted these XR myself: no acute fracture No xrays of right ankle ASSESSMENT: (Q66.71, Q66.72) Pes cavus of both feet (primary encounter diagnosis) (M25.572) Acute left ankle pain (M25.571, G89.29) Chronic pain of right ankle (M25.373) Ankle instability, unspecified laterality PLAN: 1. History and physical examination performed. 2. XR reviewed with patient and interpreted today 3. Discussed pain in b/l ankle. Only have xray of left ankle. She states past xrays of right ankle were done at an outside facility and were negative. 4. Would have her continue with good supportive tennis shoes, ie hoka, prasad, asics. Will provide her with powerstep inserts. 5. Referral made to physical therapy 6. If pain fails to improve, call for follow-up/possible boot. Maggie Huitron DPM Podiatry [address] [facility] [address] Dept: [phone] Dept documented in this encounter [facility] 06-04-2024 Instructions Maggie Huitron - 06/04/2024 8:59 AM EDT Powerstep Original Full length. Can purchase at [facility] [employer] and boots,shoes and more here in [place], [employer] in [place] or [place]. Also can find in [place] in [facility]. Powersteps can also be purchased online, starting around $45.00 If you have a metatarsal or dancer pad for your feet apply the pad directly to the insole so you can interchange between your shoes. Find a shoe with a removable insole and take this out and replace with your powerstep insole. Always bring powersteps with you when shopping for shoes so that you can make sure that everything fits well together documented in this encounter [facility] 06-04-2024 Note HNO ID: [id number] Author: MAGGIE HUITRON, ? Service: ? Author Type: Physician Type: Progress Notes Filed: 06/04/2024 10:14 Note Text: Consultation requested by Dr. Fitzgerald for an opinion regarding ankle pain. My final recommendations will be communicated back to the requesting physician by way of shared Medical record or letter to requesting physician via [place] mail. Initial Podiatric Office Visit: Chief Complaint: This 29 year old female who presents with chief complaint:b/l ankle pain HPI Patient presents to clinic with complaint of b/l ankle On her right ankle, she rolled her right ankle back on January 05. She never went to see anyone for the pain until later in the summer. She had xrays that were negative. She still has cramping. She does nothing for the pain On her left ankle, she feels that her left ankle is catching and popping. She does report some soreness with continued activity. PAIN EVALUATION 05/28/2024 0919 06/04/2024 0839 Pain Level: 4 2 Pain Location: Ankle-Left -- right and left foot Description: Aching;Sore;Stiffness Aching;Cramping;Tightness Duration Units: Weeks Months Frequency: Intermittent Continuous Intervention/Comfort measure: Cold -- No results found for: HBA1C PCP: Justyna Colunga CNP PAST MEDICAL HISTORY Diagnosis Date EDS (Donte-Danlos syndrome) GERD (gastroesophageal reflux disease) Hypothyroidism Obesity, Class II, BMI 35-39.9 Current Outpatient Medications Medication Sig acetaminophen (ACETAMINOPHEN EXTRA STRENGTH) 500 mg tablet Take 1 tablet every 4 to 6 hours as needed for pain ibuprofen (MOTRIN) 600 mg tablet Take 1 tablet every 6 o 8 hours as needed for pain or swelling CARD MAKER THYROID 120 mg tablet Take 120 mg by mouth once daily. thyroid (CARD MAKER THYROID) 15 mg tablet Take 15 mg by mouth once daily. Total 135 mg daily No current facility-administered medications for this visit. ALLERGIES No Known Allergies PAST SURGICAL HISTORY Procedure Laterality Date PAST SURGICAL HISTORY OF Left 2017 knee ACL PAST SURGICAL HISTORY OF Left breast lumpectomy PAST SURGICAL HISTORY OF Right breast lumpectomy FAMILY HISTORY Problem Relation Age of Onset No Known Problems Mother Hypertension Father No Known Problems Sister No Known Problems Sister Diabetes Maternal Grandmother Dementia Maternal Grandfather Parkinson's Maternal Grandfather Heart Attack Maternal Grandfather Anesthesia Problems No Family History Social History Tobacco Use Smoking status: Never Smokeless tobacco: Never Vaping Use Vaping status: Never Used Substance Use Topics Alcohol use: Never Drug use: Never REVIEW OF SYSTEMS GENERAL: Negative for Malaise, significant weight loss, fever RESPIRATORY: Negative for cough, wheezing and shortness of breath CARDIOVASCULAR: Negative for chest pain, leg swelling and palpitations GI: Negative for abdominal discomfort, blood in stools or black stools and change in bowel habits : Negative for dysuria, frequency and incontinence MUSCULOSKELETAL: Negative for joint pain or swelling, back pain, and muscle pain. SKIN: Negative for lesions, rash, and itching. HEMATOLOGY/LYMPHOLOGY Negative for prolonged bleeding, bruising easily, and swollen nodes. ENDOCRINE: Negative for cold or heat intolerance, polyuria, polydipsia and goiter. NEURO: negative Physical Exam: Constitutional: Pt is a well developed 29 year old female who is alert, oriented and cooperative Eyes: Following during examination. No redness or drainage. Respiratory: RR normal and nonlabored. Even breathing. No evidence of distress or shortness of breath. Psychology: Patient is engaged during conversation. Normal affect and mood. Does not appear depressed or anxious during encounter. Vascular: Dorsalis pedis and posterior tibial pulses palpable as b/l Capillary Fill time < 5 seconds to digits 1-5 b/l Skin temperature warm to warm proximal to distal b/l Hair growth present to digits Neurological: intact light touch/epicritic sensation b/l intact protective sensation no significant neurological deficits Dermatological: Nails 1-5 b/l appear normal. Webspaces clean and dry 1-4 b/l. Skin appears well hydrated and supple. good color, texture, turgor. No open lesions present. No callosities present. Musculoskeletal/Orthopaedic: Patient has pain to palpation of right lateral ankle. 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 MTJ, STJ are full and free of pain and crepitus. +5/5 muscle strength dorsiflexion, plantarflexion, inversion, eversion b/l No laxity with anterior drawer No subluxing peroneal Radiographs: 3 views left ankle reviewed June 04, 2024: I have personally reviewed and interpreted these XR myself: no acute fracture No xrays of right ankle ASSESSMENT: (Q66.71, Q66.7 (more content not included)... [facility] 05-31-2024 Note HNO ID: [id number] Author: RAJINDER MI PT Service: ? Author Type: Physical Therapist Type: Progress Notes Filed: 05/31/2024 09:45 Note Text: Episode Visit Count: 9 Therapist That Will Accept/Oversee The Plan Of Care: Samuel Velasquez PT, DPT Start of Care Date: 04/29/24 Onset Date: 08/26/19 Plan of Care Certification Date: 04/29/24 Next Certification Due Date: 06/20/24 Patient Identified by Name and Date of : Yes REHABILITATION AND SPORTS THERAPY PHYSICAL THERAPY TREATMENT NOTE ASSESSMENT: Rere Knutson tolerated the session with decreased symptoms and expected muscle soreness. She demonstrated increased L medial arch collapse at ankle with increased L and improvements in L LE strength with progression to SLS and CKC exercises. The patient will continue to benefit from ongoing skilled physical therapy to progress toward set goals. PLAN FOR NEXT VISIT: continue progressionof L knee in CKC phase and single leg stability with various balance exercises SUBJECTIVE: Pt reports increased knee stiffness this date. She said this is common for the morning's. Pain: Pain Pain Level: 2 Pain Location: Knee - Left Description: Aching Frequency: Continuous Post Treatment Pain Post Treatment Pain Level: No Change Post Treatment Pain Location: Knee - Left OBJECTIVE MEASURES WITH LEVEL OF FUNCTION: No objective measurements documented this date. TREATMENT: Therapeutic Exercise: 1: upright bike x 5' (knee mobility) 2: Standing gastroc stretch off step 2x30 hold, B 3: Standing HS stretch at step 3x20 hold, L 4: SLS Heel raise on stairs; ensuring a slow decline 2x10 5: Single leg press 4pl 3x10, L 6: Standing multi hip (flexion/abduction) 18.75#, B 7: 8 forward step ups with knee drive 2x10, B 8: 6 lateral step ups with knee drive 2x10, B 9: SLS on airex 2x30 hold, B 10: Side stepping 2x20ft ea direction 11: Monster walks 2x20ft forward/backward 12: Rebounder SLS ball toss 6# 1x20, B Skilled Intervention: Patient was educated in proper exercise technique and purpose for exercises. Skilled judgment was used in selection of appropriate interventions. Correct performance of therapeutic exercises was facilitated with verbal and visual cuing. Modalities: Vasopneumatic Treatment Body Region Treated - Vasopneumatic Treatment: L knee Patient Position: supine w/legs propped Compression mmHg: mod-38 degrees Minutes: 15 Skilled Intervention: Proper administration and selection of modality based on clinical presentation, deficits, and needs. Patient response monitored throughout treatment. Billing Therapeutic Exercise Treatment Minutes: 40 * Vasopneumatic Treatment: 1 unit Skilled Treatment Time Minutes (timed and untimed codes): 55 Total Session Time (minutes): 55 Session Start Time : 844 Session Stop Time : 939 Rajinder Mi, PT, DPT [facility] 05-31-2024 History of Presen t illness Narrative Episode Visit Count: 9 Therapist That Will Accept/Oversee The Plan Of Care: Samuel Velasquez PT, DPT Start of Care Date: 04/29/24 Onset Date: 08/26/19 Plan of Care Certification Date: 04/29/24 Next Certification Due Date: 06/20/24 Patient Identified by Name and Date of : Yes REHABILITATION AND SPORTS THERAPY PHYSICAL THERAPY TREATMENT NOTE ASSESSMENT: Rere Knutson tolerated the session with decreased symptoms and expected muscle soreness. She demonstrated increased L medial arch collapse at ankle with increased L and improvements in L LE strength with progression to SLS and CKC exercises. The patient will continue to benefit from ongoing skilled physical therapy to progress toward set goals. PLAN FOR NEXT VISIT: continue progressionof L knee in CKC phase and single leg stability with various balance exercises SUBJECTIVE: Pt reports increased knee stiffness this date. She said this is common for the morning's. Pain: Pain Pain Level: 2 Pain Location: Knee - Left Description: Aching Frequency: Continuous Post Treatment Pain Post Treatment Pain Level: No Change Post Treatment Pain Location: Knee - Left OBJECTIVE MEASURES WITH LEVEL OF FUNCTION: No objective measurements documented this date. TREATMENT: Therapeutic Exercise: 1: upright bike x 5' (knee mobility) 2: Standing gastroc stretch off step 2x30 hold, B 3: Standing HS stretch at step 3x20 hold, L 4: SLS Heel raise on stairs; ensuring a slow decline 2x10 5: Single leg press 4pl 3x10, L 6: Standing multi hip (flexion/abduction) 18.75#, B 7: 8 forward step ups with knee drive 2x10, B 8: 6 lateral step ups with knee drive 2x10, B 9: SLS on airex 2x30 hold, B 10: Side stepping 2x20ft ea direction 11: Monster walks 2x20ft forward/backward 12: Rebounder SLS ball toss 6# 1x20, B Skilled Intervention: Patient was educated in proper exercise technique and purpose for exercises. Skilled judgment was used in selection of appropriate interventions. Correct performance of therapeutic exercises was facilitated with verbal and visual cuing. Modalities: Vasopneumatic Treatment Body Region Treated - Vasopneumatic Treatment: L knee Patient Position: supine w/legs propped Compression mmHg: mod-38 degrees Minutes: 15 Skilled Intervention: Proper administration and selection of modality based on clinical presentation, deficits, and needs. Patient response monitored throughout treatment. Billing Therapeutic Exercise Treatment Minutes: 40 * Vasopneumatic Treatment: 1 unit Skilled Treatment Time Minutes (timed and untimed codes): 55 Total Session Time (minutes): 55 Session Start Time : 0845 Session Stop Time : 09 Rajinder Mi, PT, DPT documented in this encounter [facility] 05-28-2024 Note HNO ID: [id number] Author: RAJINDER MI PT Service: ? Author Type: Physical Therapist Type: Progress Notes Filed: 05/28/2024 16:22 Note Text: Episode Visit Count: 8 Therapist That Will Accept/Oversee The Plan Of Care: Samuel Velasquez PT, DPT Start of Care Date: 04/29/24 Onset Date: 08/26/19 Plan of Care Certification Date: 04/29/24 Next Certification Due Date: 06/20/24 Patient Identified by Name and Date of : Yes REHABILITATION AND SPORTS THERAPY PHYSICAL THERAPY TREATMENT NOTE ASSESSMENT: Rere Knutson tolerated the session with decreased symptoms. She demonstrated improvements in activity tolerance with progression to standing resisted bilateral hip exercises into flexion and abduction. Also, she demonstrates increased L quad strength with increased resistance for bilateral leg press. The patient will continue to benefit from ongoing skilled physical therapy to progress toward set goals. PLAN FOR NEXT VISIT: continue progressionof L knee in CKC phase and single leg stability with various balance exercises SUBJECTIVE: Pt has no complaints over the weekend or since last therapy session. She did not perform her HEP over the weekend. Pain: Pain Pain Level: 2 Pain Location: Knee - Left Description: Aching Frequency: Continuous Post Treatment Pain Post Treatment Pain Level: No Change Post Treatment Pain Location: Knee - Left OBJECTIVE MEASURES WITH LEVEL OF FUNCTION: No objective measurements documented this date. TREATMENT: Therapeutic Exercise: 1: upright bike x 5' (knee mobility) 2: Standing gastroc stretch off step 2x30 hold, B 3: Standing HS stretch at step 3x20 hold, L 4: SLS Heel raise on stairs; ensuring a slow decline 2x10 5: LP 8pl 3x10 @ level 4 6: Standing multi hip (flexion/abduction) 18.75#, B 7: prone TKE w/ 5lb ankle wt LLE x 20 8: Sidelying clamshells 2x10, B BTB 9: supine SLR with BTB (B) 2x 20 10: sidelying hip abduction (SLR) (LLE) BTB 2x 20 Skilled Intervention: Patient was educated in proper exercise technique and purpose for exercises. Skilled judgment was used in selection of appropriate interventions. Correct performance of therapeutic exercises was facilitated with verbal and visual cuing. Modalities: Vasopneumatic Treatment Body Region Treated - Vasopneumatic Treatment: L knee Patient Position: supine w/legs propped Compression mmHg: mod-38 degrees Minutes: 15 Skilled Intervention: Proper administration and selection of modality based on clinical presentation, deficits, and needs. Patient response monitored throughout treatment. Billing Therapeutic Exercise Treatment Minutes: 35 * Vasopneumatic Treatment: 1 unit Skilled Treatment Time Minutes (timed and untimed codes): 50 Total Session Time (minutes): 50 Session Start Time : 1433 Session Stop Time : 1523 Rajinder Mi, PT, DPT [facility] 05-28-2024 History of Presen t illness Narrative Episode Visit Count: 8 Therapist That Will Accept/Oversee The Plan Of Care: Samuel Velasquez PT, DPT Start of Care Date: 04/29/24 Onset Date: 08/26/19 Plan of Care Certification Date: 04/29/24 Next Certification Due Date: 06/20/24 Patient Identified by Name and Date of : Yes REHABILITATION AND SPORTS THERAPY PHYSICAL THERAPY TREATMENT NOTE ASSESSMENT: Rere Knutson tolerated the session with decreased symptoms. She demonstrated improvements in activity tolerance with progression to standing resisted bilateral hip exercises into flexion and abduction. Also, she demonstrates increased L quad strength with increased resistance for bilateral leg press. The patient will continue to benefit from ongoing skilled physical therapy to progress toward set goals. PLAN FOR NEXT VISIT: continue progressionof L knee in CKC phase and single leg stability with various balance exercises SUBJECTIVE: Pt has no complaints over the weekend or since last therapy session. She did not perform her HEP over the weekend. Pain: Pain Pain Level: 2 Pain Location: Knee - Left Description: Aching Frequency: Continuous Post Treatment Pain Post Treatment Pain Level: No Change Post Treatment Pain Location: Knee - Left OBJECTIVE MEASURES WITH LEVEL OF FUNCTION: No objective measurements documented this date. TREATMENT: Therapeutic Exercise: 1: upright bike x 5' (knee mobility) 2: Standing gastroc stretch off step 2x30 hold, B 3: Standing HS stretch at step 3x20 hold, L 4: SLS Heel raise on stairs; ensuring a slow decline 2x10 5: LP 8pl 3x10 @ level 4 6: Standing multi hip (flexion/abduction) 18.75#, B 7: prone TKE w/ 5lb ankle wt LLE x 20 8: Sidelying clamshells 2x10, B BTB 9: supine SLR with BTB (B) 2x 20 10: sidelying hip abduction (SLR) (LLE) BTB 2x 20 Skilled Intervention: Patient was educated in proper exercise technique and purpose for exercises. Skilled judgment was used in selection of appropriate interventions. Correct performance of therapeutic exercises was facilitated with verbal and visual cuing. Modalities: Vasopneumatic Treatment Body Region Treated - Vasopneumatic Treatment: L knee Patient Position: supine w/legs propped Compression mmHg: mod-38 degrees Minutes: 15 Skilled Intervention: Proper administration and selection of modality based on clinical presentation, deficits, and needs. Patient response monitored throughout treatment. Billing Therapeutic Exercise Treatment Minutes: 35 * Vasopneumatic Treatment: 1 unit Skilled Treatment Time Minutes (timed and untimed codes): 50 Total Session Time (minutes): 50 Session Start Time : 1433 Session Stop Time : 1523 Rajinder Mi PT, DPT documented in this encounter [facility] 05-23-2024 Note HNO ID: [id number] Author: SAMUEL VELASQUEZ PT Service: ? Author Type: Physical Therapist Type: Progress Notes Filed: 05/23/2024 15:21 Note Text: Episode Visit Count: 7 Therapist That Will Accept/Oversee The Plan Of Care: Samuel Velasquez PT, DPT Start of Care Date: 04/29/24 Onset Date: 08/26/19 Plan of Care Certification Date: 04/29/24 Next Certification Due Date: 06/20/24 Patient Identified by Name and Date of : Yes REHABILITATION AND SPORTS THERAPY PHYSICAL THERAPY PROGRESS REPORT PLAN OF CARE UPDATE: Assessment: Rere Knutson demonstrates moderate improvement in walking, lifting, physical activities, recreational activities, and squatting. The patient has progressed toward goals. Patient continues to present with impairments in balance, overall function, range of motion, strength, and symptom management that interfere with . Current prognosis is Excellent due to: current objective clinical presentation, good overall health status, positive past response to therapy . The patient will benefit from continued skilled therapy services to meet the updated goals for this plan of care as noted below. Goals for Episode of Care: established 04/29/24 [place] in home exercise program. Goal met: 05/23/24 Patient will decrease pain to 0/10 at rest and with functional activities to allow patient to improve ambulation and standing tolerance for ADLs. Progressin05/23/24 Patient will increase active ROM of L knee flexion to 140 to match the opposite extremity to allow pt to to improve postural alignment, to improve performance of ADLs, to improve gait mechanics / gait pattern , and to decrease falls risks . Patient will demonstrate increase in LLE strength to 5/5 during manual muscle testing in order to improve function for home management tasks, leisure / recreation skills, light functional tasks, moderate to heavy functional tasks, prior functional tasks, and work tasks. Progressin05/23/24 Pt will improve postural awareness to allow FWB through LLE. Progressin05/23/24 Pt will increase her ability to perform a minisquat with FWB through both extremities. Progressin05/23/24 Pt will improve semi-tandem, tandem, and L single leg stance during the 4 stage balance test to decrease risk for falls. Goal met: 05/23/24 Patient Goals: Decrease pain and strengthen L knee to be able to climb stairs normally and return to sports in her freetime Time Frame for Goals and Treatment : 06/20/24 Planned Interventions, Frequency, and Duration: 2x/week, 4 weeks Total Number of Visits Planned: 68 Patient to be seen for Therapeutic exercise (11011), Neuromuscular re-education (39460), Manual therapy (64169), Therapeutic activities (17150), Gait Training (08714), Functional training, Vasopneumatic Treatment ([id number]) PLAN FOR NEXT VISIT: continue progressionof L knee in CKC phase and single leg stability with various balance exercises SUBJECTIVE: Pt reports increased L soreness today d/t being busy at work. States she has made >75% progress with knee rehab sicne starting therapy. Less swelling, less pain, more strength in LLE. Still can feel balance difficulties. Is able to do more with LLE now compared to 4 weeks ago.. Pain: Pain Pain Level: 3 Pain Location: Knee - Left PROMIS Scales 04/28/2024 03/21/2024 Higher is Better Phys Func - Score 48 (within normal limits) 43 (mild dysfunction) Phys Func - Percentile 42 24 Self-Eff Symptom - Score 45 (Average) Self-Eff Symptom - Percentile 31 T-scores: mean of general population = 50. 5 points is clinically meaningfully difference Percentiles provide an indication of how the patient's score ranks in relation to the general population. Higher percentile rankings indicate better function/quality of life. 50th percentile is the average of the general population and indicates half of respondents had a worse score. OBJECTIVE MEASURES WITH LEVEL OF FUNCTION: LE AROM R Knee Extension: 0 Degrees R Knee Flexion: 138 Degrees L Knee Extension: -1 Degrees L Knee Flexion: 123 Degrees LE Strength R LE Strength: 5/5 all muscles L Hip Flexion (L2): 4/5 L Hip ABduction: 4+/5 L Hip ADduction: 5/5 L Knee Extension (L3): 4+/5 L Knee Flexion: 4+/5 L Ankle Dorsiflexion (L4): 5/5 L Ankle Plantar Flexion: 5/5 Functional Strength Minisquat: 20/20 (icnreased weight bearing through LLE, ednurance weakness) 4 Stage Balance Test Narrow base of support (sec): 30 sec Semi-tandem base of support (sec): 30 sec Tandem base of support (sec): 30 sec Single leg stance - right (sec): 30 sec Single leg stance - left (sec): 30 sec Lower Quarter Y Balance Test R Leg length (cm): 89 R Anterior (cm) (farthest reach): 72 R Posterior-medial (cm) (farthest reach): 78 R Posterior-lateral (cm) (farthest reach) : 85 R YBT Composite Score: 88.01 L Anterior (cm) (farthest reach): 62 L Posterior-medial (cm) (farthest re (more content not included)... [facility] 05-23-2024 History of Presen t illness Narrative Images from the original note were not included. Episode Visit Count: 7 Therapist That Will Accept/Oversee The Plan Of Care: Samuel Velasquez PT, DPT Start of Care Date: 04/29/24 Onset Date: 08/26/19 Plan of Care Certification Date: 04/29/24 Next Certification Due Date: 06/20/24 Patient Identified by Name and Date of : Yes REHABILITATION AND SPORTS THERAPY PHYSICAL THERAPY PROGRESS REPORT PLAN OF CARE UPDATE: Assessment: Rere Knutson demonstrates moderate improvement in walking, lifting, physical activities, recreational activities, and squatting. The patient has progressed toward goals. Patient continues to present with impairments in balance, overall function, range of motion, strength, and symptom management that interfere with . Current prognosis is Excellent due to: current objective clinical presentation, good overall health status, positive past response to therapy . The patient will benefit from continued skilled therapy services to meet the updated goals for this plan of care as noted below. Goals for Episode of Care: established 04/29/24 [place] in home exercise program. Goal met: 05/23/24 Patient will decrease pain to 0/10 at rest and with functional activities to allow patient to improve ambulation and standing tolerance for ADLs. Progressin05/23/24 Patient will increase active ROM of L knee flexion to 140 to match the opposite extremity to allow pt to to improve postural alignment, to improve performance of ADLs, to improve gait mechanics / gait pattern , and to decrease falls risks . Patient will demonstrate increase in LLE strength to 5/5 during manual muscle testing in order to improve function for home management tasks, leisure / recreation skills, light functional tasks, moderate to heavy functional tasks, prior functional tasks, and work tasks. Progressin05/23/24 Pt will improve postural awareness to allow FWB through LLE. Progressin05/23/24 Pt will increase her ability to perform a minisquat with FWB through both extremities. Progressin05/23/24 Pt will improve semi-tandem, tandem, and L single leg stance during the 4 stage balance test to decrease risk for falls. Goal met: 05/23/24 Patient Goals: Decrease pain and strengthen L knee to be able to climb stairs normally and return to sports in her freetime Time Frame for Goals and Treatment : 06/20/24 Planned Interventions, Frequency, and Duration: 2x/week, 4 weeks Total Number of Visits Planned: 68 Patient to be seen for Therapeutic exercise (89709), Neuromuscular re-education (84557), Manual therapy (24780), Therapeutic activities (65512), Gait Training (88202), Functional training, Vasopneumatic Treatment (78183) PLAN FOR NEXT VISIT: continue progressionof L knee in CKC phase and single leg stability with various balance exercises SUBJECTIVE: Pt reports increased L soreness today d/t being busy at work. States she has made >75% progress with knee rehab sicne starting therapy. Less swelling, less pain, more strength in LLE. Still can feel balance difficulties. Is able to do more with LLE now compared to 4 weeks ago.. Pain: Pain Pain Level: 3 Pain Location: Knee - Left PROMIS Scales 04/28/2024 03/21/2024 Higher is Better Phys Func - Score 48 (within normal limits) 43 (mild dysfunction) Phys Func - Percentile 42 24 Self-Eff Symptom - Score 45 (Average) Self-Eff Symptom - Percentile 31 T-scores: mean of general population = 50. 5 points is clinically meaningfully difference Percentiles provide an indication of how the patient's score ranks in relation to the general population. Higher percentile rankings indicate better function/quality of life. 50th percentile is the average of the general population and indicates half of respondents had a worse score. OBJECTIVE MEASURES WITH LEVEL OF FUNCTION: LE AROM R Knee Extension: 0 Degrees R Knee Flexion: 138 Degrees L Knee Extension: -1 Degrees L Knee Flexion: 123 Degrees LE Strength R LE Strength: 5/5 all muscles L Hip Flexion (L2): 4/5 L Hip ABduction: 4+/5 L Hip ADduction: 5/5 L Knee Extension (L3): 4+/5 L Knee Flexion: 4+/5 L Ankle Dorsiflexion (L4): 5/5 L Ankle Plantar Flexion: 5/5 Functional Strength Minisquat: 20/20 (icnreased weight bearing through LLE, ednurance weakness) 4 Stage Balance Test Narrow base of support (sec): 30 sec Semi-tandem base of support (sec): 30 sec Tandem base of support (sec): 30 sec Single leg stance - right (sec): 30 sec Single leg stance - left (sec): 30 sec Lower Quarter Y Balance Test R Leg length (cm): 89 R Anterior (cm) (farthest reach): 72 R Posterior-medial (cm) (farthest reach): 78 R Posterior-lateral (cm) (farthest reach) : 85 R YBT Composite Score: 88.01 L Anterior (cm) (farthest reach): 62 L Posterior-medial (cm) (farthest reach) : 73 L Posterior-lateral (cm) (farthest reach): 71 L YBT Composite Score: 77.15 Limb Symmetry Index: 87.66 Anterior Limb Symmetry: 10 Posterior Medial Limb Symmetry: 5 Posterior Lateral Limb Symmetry: 14 TREATMENT: Therapeutic Exercise: 1: upright bike x 5' (knee mobility) 2: lateral step ups x10 on 6in box; x10 on 4in box due to pain 3: SLS Heel raise on stairs; ensuring a slow decline 2x10 4: LP 6pl x15, 8pl x15 @ level 4 5: progress note assessment Skilled Intervention: Patient was educated in proper exercise technique and purpose for exercises. Skilled judgment was used in selection of appropriate interventions. Correct performance of therapeutic exercises was facilitated with verbal, visual, and tactile cuing. Billing Therapeutic Exercise Treatment Minutes: 40 Skilled Treatment Time Minutes (timed and untimed codes): 40 Total Session Time (minutes): 40 Session Start Time : 1430 Session Stop Time : 1510 Samuel Velasquez PT, DPT documented in this encounter [facility] 05-21-2024 Note HNO ID: [id number] Author: SAMUEL VELASQUEZ PT Service: ? Author Type: Physical Therapist Type: Progress Notes Filed: 05/21/2024 15:10 Note Text: Episode Visit Count: 6 Therapist That Will Accept/Oversee The Plan Of Care: Samuel Velasquez PT, DPT Start of Care Date: 04/29/24 Onset Date: 08/26/19 Plan of Care Certification Date: 04/29/24 Next Certification Due Date: 06/10/24 Patient Identified by Name and Date of : Yes REHABILITATION AND SPORTS THERAPY PHYSICAL THERAPY TREATMENT NOTE ASSESSMENT: Rere Knutson tolerated the session with expected muscle soreness. She demonstrated improvements in LLE single leg strength with CKC advancements. Noticed decreased popping in L knee when properly engaging glut and trunk musculature. The patient will continue to benefit from ongoing skilled physical therapy to progress toward set goals. PLAN FOR NEXT VISIT: continue progression L knee in CKC phase and single leg stability SUBJECTIVE: Pt reports minimal L knee pain. Still feels popping after completing HEP Pain: Pain Pain Level: 1 Pain Location: Knee - Left Post Treatment Pain Post Treatment Pain Level: No Change Post Treatment Symptoms: looser but sore OBJECTIVE MEASURES WITH LEVEL OF FUNCTION: TREATMENT: Therapeutic Exercise: 1: upright bike x 5' (knee mobility) 2: supine SLR with BTB (B) 2x 20 3: sidelying hip abduction (SLR) (LLE) BTB 2x 20 4: sidelying L clamshell w/ BTB 2x 20 5: prone TKE w/ 5lb ankle wt LLE x 20 6: LP 6pl x 15, 8pl x 15 7: 2-1 4pl (eccentric w/ LLE) 2x 12 8: TS around the [place] 2x 25 w/ 6kg kb Skilled Intervention: Patient was educated in proper exercise technique and purpose for exercises. Skilled judgment was used in selection of appropriate interventions. Correct performance of therapeutic exercises was facilitated with verbal, visual, and tactile cuing. Modalities: Vasopneumatic Treatment Body Region Treated - Vasopneumatic Treatment: Left knee Patient Position: supine w/legs propped Compression mmHg: mod-38 degrees Minutes: 15 Skilled Intervention: Proper administration and selection of modality based on clinical presentation, deficits, and needs. Patient response monitored throughout treatment. Billing Therapeutic Exercise Treatment Minutes: 30 * Vasopneumatic Treatment: 1 unit Skilled Treatment Time Minutes (timed and untimed codes): 45 Total Session Time (minutes): 45 Session Start Time : 1430 Session Stop Time : 1515 Samuel Velasquez, PT, DPT [facility] 05-21-2024 History of Presen t illness Narrative Episode Visit Count: 6 Therapist That Will Accept/Oversee The Plan Of Care: Samuel Velasquez PT, DPT Start of Care Date: 04/29/24 Onset Date: 08/26/19 Plan of Care Certification Date: 04/29/24 Next Certification Due Date: 06/10/24 Patient Identified by Name and Date of : Yes REHABILITATION AND SPORTS THERAPY PHYSICAL THERAPY TREATMENT NOTE ASSESSMENT: Rere Knutson tolerated the session with expected muscle soreness. She demonstrated improvements in LLE single leg strength with CKC advancements. Noticed decreased popping in L knee when properly engaging glut and trunk musculature. The patient will continue to benefit from ongoing skilled physical therapy to progress toward set goals. PLAN FOR NEXT VISIT: continue progression L knee in CKC phase and single leg stability SUBJECTIVE: Pt reports minimal L knee pain. Still feels popping after completing HEP Pain: Pain Pain Level: 1 Pain Location: Knee - Left Post Treatment Pain Post Treatment Pain Level: No Change Post Treatment Symptoms: looser but sore OBJECTIVE MEASURES WITH LEVEL OF FUNCTION: TREATMENT: Therapeutic Exercise: 1: upright bike x 5' (knee mobility) 2: supine SLR with BTB (B) 2x 20 3: sidelying hip abduction (SLR) (LLE) BTB 2x 20 4: sidelying L clamshell w/ BTB 2x 20 5: prone TKE w/ 5lb ankle wt LLE x 20 6: LP 6pl x 15, 8pl x 15 7: 2-1 4pl (eccentric w/ LLE) 2x 12 8: TS around the [place] 2x 25 w/ 6kg kb Skilled Intervention: Patient was educated in proper exercise technique and purpose for exercises. Skilled judgment was used in selection of appropriate interventions. Correct performance of therapeutic exercises was facilitated with verbal, visual, and tactile cuing. Modalities: Vasopneumatic Treatment Body Region Treated - Vasopneumatic Treatment: Left knee Patient Position: supine w/legs propped Compression mmHg: mod-38 degrees Minutes: 15 Skilled Intervention: Proper administration and selection of modality based on clinical presentation, deficits, and needs. Patient response monitored throughout treatment. Billing Therapeutic Exercise Treatment Minutes: 30 * Vasopneumatic Treatment: 1 unit Skilled Treatment Time Minutes (timed and untimed codes): 45 Total Session Time (minutes): 45 Session Start Time : 1430 Session Stop Time : 1515 Samuel Velasquez PT, DPT documented in this encounter [facility] 05-16-2024 Note HNO ID: [id number] Author: SAMUEL VELASQUEZ PT Service: ? Author Type: Physical Therapist Type: Progress Notes Filed: 05/16/2024 16:28 Note Text: Episode Visit Count: 5 Therapist That Will Accept/Oversee The Plan Of Care: Samuel Velasquez PT, DPT Start of Care Date: 04/29/24 Onset Date: 08/26/19 Plan of Care Certification Date: 04/29/24 Next Certification Due Date: 06/10/24 Patient Identified by Name and Date of : Yes REHABILITATION AND SPORTS THERAPY PHYSICAL THERAPY TREATMENT NOTE ASSESSMENT: Rere Knutson tolerated the session with expected muscle soreness. She demonstrated improvements in tolerance to increased weightbearing in LLE and improvements in L knee extension ROM. The patient will continue to benefit from ongoing skilled physical therapy to progress toward set goals. PLAN FOR NEXT VISIT: May assess ankle at next visit or in the future. Continue L knee TKE and progress when pt is ready and continue ROM. LLE strengthening and balance. Pt needs to work on full weightbearing thorugh LLE. SUBJECTIVE: Pt arrive 10 min late d/t to traffic. Pt reports her knee is still popping with certain movements especially with stairs (straight to starting to bend movements) and it hurts going down hill. Pt reported increased soreness following the last session. Pt reports that she hurt her L ankle spliping on ice cub in January wants to order MRI but waited till after knee surgery and wants to see if PT will help. It hurtrs every day but only when she is more active.. Pain: Pain Pain Level: 2 Pain Location: Knee - Left Post Treatment Pain Post Treatment Pain Level: 3 Post Treatment Pain Location: Knee - Left Post Treatment Symptoms: muscle soreness OBJECTIVE MEASURES WITH LEVEL OF FUNCTION: TREATMENT: Therapeutic Exercise: 1: upright bike x 5' (knee mobility) 2: prone grasshoppers R x 12 3: supine L SLR w/2lb ankle weight 2 x 12 4: multihip machine B hip abd 12.5lbs x 12 5: multihip machine B hip add 12.5lbsx 12 6: multihip machine B marches 12.5lbs x 12 7: calf rasies on 4step x 15 8: GTB resisted lateral walking 3 x 20 feet Skilled Intervention: Patient was educated in proper exercise technique and purpose for exercises. Reviewed and educated patient on additions/changes for home exercise program as above (*). Skilled judgment was used in selection of appropriate interventions. Correct performance of therapeutic exercises was facilitated with verbal, visual, and tactile cuing. Billing Therapeutic Exercise Treatment Minutes: 33 Skilled Treatment Time Minutes (timed and untimed codes): 33 Total Session Time (minutes): 33 Session Start Time : 1440 Session Stop Time : 1513 CANDIS Reyes Supervising therapist was present and guided the care of the patient for the entire session on this date. All documentation was reviewed and agreed upon. Samuel Velasquez PT, DPT [facility] 05-16-2024 History of Presen t illness Narrative Episode Visit Count: 5 Therapist That Will Accept/Oversee The Plan Of Care: Samuel Ron PT, DPT Start of Care Date: 04/29/24 Onset Date: 08/26/19 Plan of Care Certification Date: 04/29/24 Next Certification Due Date: 06/10/24 Patient Identified by Name and Date of : Yes REHABILITATION AND SPORTS THERAPY PHYSICAL THERAPY TREATMENT NOTE ASSESSMENT: Rere Knutson tolerated the session with expected muscle soreness. She demonstrated improvements in tolerance to increased weightbearing in LLE and improvements in L knee extension ROM. The patient will continue to benefit from ongoing skilled physical therapy to progress toward set goals. PLAN FOR NEXT VISIT: May assess ankle at next visit or in the future. Continue L knee TKE and progress when pt is ready and continue ROM. LLE strengthening and balance. Pt needs to work on full weightbearing thorugh LLE. SUBJECTIVE: Pt arrive 10 min late d/t to traffic. Pt reports her knee is still popping with certain movements especially with stairs (straight to starting to bend movements) and it hurts going down hill. Pt reported increased soreness following the last session. Pt reports that she hurt her L ankle spliping on ice cub in January wants to order MRI but waited till after knee surgery and wants to see if PT will help. It hurtrs every day but only when she is more active.. Pain: Pain Pain Level: 2 Pain Location: Knee - Left Post Treatment Pain Post Treatment Pain Level: 3 Post Treatment Pain Location: Knee - Left Post Treatment Symptoms: muscle soreness OBJECTIVE MEASURES WITH LEVEL OF FUNCTION: TREATMENT: Therapeutic Exercise: 1: upright bike x 5' (knee mobility) 2: prone grasshoppers R x 12 3: supine L SLR w/2lb ankle weight 2 x 12 4: multihip machine B hip abd 12.5lbs x 12 5: multihip machine B hip add 12.5lbsx 12 6: multihip machine B marches 12.5lbs x 12 7: calf rasies on 4step x 15 8: GTB resisted lateral walking 3 x 20 feet Skilled Intervention: Patient was educated in proper exercise technique and purpose for exercises. Reviewed and educated patient on additions/changes for home exercise program as above (*). Skilled judgment was used in selection of appropriate interventions. Correct performance of therapeutic exercises was facilitated with verbal, visual, and tactile cuing. Billing Therapeutic Exercise Treatment Minutes: 33 Skilled Treatment Time Minutes (timed and untimed codes): 33 Total Session Time (minutes): 33 Session Start Time : 1440 Session Stop Time : 1513 CANDIS Reyes Supervising therapist was present and guided the care of the patient for the entire session on this date. All documentation was reviewed and agreed upon. Samuel Velasquez PT, DPT documented in this encounter [facility] 05-09-2024 Note HNO ID: [id number] Author: SAMUEL VELASQUEZ PT Service: ? Author Type: Physical Therapist Type: Progress Notes Filed: 05/09/2024 17:35 Note Text: Episode Visit Count: 4 Therapist That Will Accept/Oversee The Plan Of Care: Samuel Velasquez PT, DPT Start of Care Date: 04/29/24 Onset Date: 08/26/19 Plan of Care Certification Date: 04/29/24 Next Certification Due Date: 06/10/24 Patient Identified by Name and Date of : Yes REHABILITATION AND SPORTS THERAPY PHYSICAL THERAPY TREATMENT NOTE ASSESSMENT: Rere Knutson tolerated the session with decreased symptoms and expected muscle soreness. She demonstrated improvements in L knee swelling since last session and increased L knee ROM. The patient will continue to benefit from ongoing skilled physical therapy to progress toward set goals. PLAN FOR NEXT VISIT: Focus on L knee extension and ROM. LLE strengthening and balance. Pt needs to work on full weightbearing thorugh LLE SUBJECTIVE: Pt reports her knee bothers her more after a day of being on it more. She states she thinks it is getting better. Pain: Pain Pain Level: 2 Pain Location: Knee - Left Post Treatment Pain Post Treatment Pain Level: Better OBJECTIVE MEASURES WITH LEVEL OF FUNCTION: Knee Observations L Knee Girth (cm): 41.5 cm (41.5 cm after vasoneumatic compression) TREATMENT: Therapeutic Exercise: 1: upright bike x 5' (knee mobility) 2: L prone grasshoppers 2 x 12 3: Standing L HS stretch on 4 step 3 x 15 hold 4: L leg on step step ups to SLS 4 x 10, 6 step x 10 5: LP 4pl x12, 6pl x 12 6: standing TKE with OTB x 10 (pt knee clicked w/pain) (Pt was not ready to progress to this exercise. OTB was placed in cupboard for when pt is able to progress.) 7: standing TKE isometric into wall w/sm purple ball x 15 (pt tolerated better and was educated on doing them at home) 8: L leg on steps lateral step downs to SLS 6 step x 10, 4 step x 10 Skilled Intervention: Patient was educated in proper exercise technique and purpose for exercises. Reviewed and educated patient on additions/changes for home exercise program as above (*). Skilled judgment was used in selection of appropriate interventions. Correct performance of therapeutic exercises was facilitated with verbal, visual, and tactile cuing. Modalities: Vasopneumatic Treatment Body Region Treated - Vasopneumatic Treatment: Left knee Patient Position: supine w/legs propped Compression mmHg: mod-42 degrees Minutes: 15 Skilled Intervention: Proper administration and selection of modality based on clinical presentation, deficits, and needs. Patient response monitored throughout treatment. Billing Therapeutic Exercise Treatment Minutes: 40 * Vasopneumatic Treatment: 1 unit Skilled Treatment Time Minutes (timed and untimed codes): 55 Total Session Time (minutes): 55 Session Start Time : 1430 Session Stop Time : 1525 CANDIS Reyes Supervising therapist was present and guided the care of the patient for the entire session on this date. All documentation was reviewed and agreed upon. Samuel Velasquez PT, DPT [facility] 05-09-2024 History of Presen t illness Narrative Episode Visit Count: 4 Therapist That Will Accept/Oversee The Plan Of Care: Samuel Velasquez PT, DPT Start of Care Date: 04/29/24 Onset Date: 08/26/19 Plan of Care Certification Date: 04/29/24 Next Certification Due Date: 06/10/24 Patient Identified by Name and Date of : Yes REHABILITATION AND SPORTS THERAPY PHYSICAL THERAPY TREATMENT NOTE ASSESSMENT: Rere Knutson tolerated the session with decreased symptoms and expected muscle soreness. She demonstrated improvements in L knee swelling since last session and increased L knee ROM. The patient will continue to benefit from ongoing skilled physical therapy to progress toward set goals. PLAN FOR NEXT VISIT: Focus on L knee extension and ROM. LLE strengthening and balance. Pt needs to work on full weightbearing thorugh LLE SUBJECTIVE: Pt reports her knee bothers her more after a day of being on it more. She states she thinks it is getting better. Pain: Pain Pain Level: 2 Pain Location: Knee - Left Post Treatment Pain Post Treatment Pain Level: Better OBJECTIVE MEASURES WITH LEVEL OF FUNCTION: Knee Observations L Knee Girth (cm): 41.5 cm (41.5 cm after vasoneumatic compression) TREATMENT: Therapeutic Exercise: 1: upright bike x 5' (knee mobility) 2: L prone grasshoppers 2 x 12 3: Standing L HS stretch on 4 step 3 x 15 hold 4: L leg on step step ups to SLS 4 x 10, 6 step x 10 5: LP 4pl x12, 6pl x 12 6: standing TKE with OTB x 10 (pt knee clicked w/pain) (Pt was not ready to progress to this exercise. OTB was placed in cupboard for when pt is able to progress.) 7: standing TKE isometric into wall w/sm purple ball x 15 (pt tolerated better and was educated on doing them at home) 8: L leg on steps lateral step downs to SLS 6 step x 10, 4 step x 10 Skilled Intervention: Patient was educated in proper exercise technique and purpose for exercises. Reviewed and educated patient on additions/changes for home exercise program as above (*). Skilled judgment was used in selection of appropriate interventions. Correct performance of therapeutic exercises was facilitated with verbal, visual, and tactile cuing. Modalities: Vasopneumatic Treatment Body Region Treated - Vasopneumatic Treatment: Left knee Patient Position: supine w/legs propped Compression mmHg: mod-42 degrees Minutes: 15 Skilled Intervention: Proper administration and selection of modality based on clinical presentation, deficits, and needs. Patient response monitored throughout treatment. Billing Therapeutic Exercise Treatment Minutes: 40 * Vasopneumatic Treatment: 1 unit Skilled Treatment Time Minutes (timed and untimed codes): 55 Total Session Time (minutes): 55 Session Start Time : 1430 Session Stop Time : 1525 CANDIS Reyes Supervising therapist was present and guided the care of the patient for the entire session on this date. All documentation was reviewed and agreed upon. Samuel Velasquez PT, DPT documented in this encounter [facility] 05-07-2024 History of Presen t illness Narrative Radiology Service Progress Note PATIENT NAME: Rere Knutson DATE OF SERVICE: May 07, 2024 TIME: 10:00 AM PATIENT IDENTITY VERIFICATION COMPLETED USING TWO (2) IDENTIFIERS: Name and Date of confirmed by patient verbally. FALL SCREENING: Has the patient had 2 falls in the last year or 1 fall with injury or currently using an Ambulatory Assistive Device (Walker, Cane, Wheelchair, Crutches, etc.)? No PATIENT GENDER DATA: Female. status: : No status: NO. PATIENT RELEVANT IMPLANT DATA REVIEWED: Not Applicable PATIENT PRESENTS WITH AN IMPLANTABLE OR ATTACHED RN CARE MANAGER: No RADIOLOGY DEPARTMENT: General X-ray: Exam(s) Completed: Lower Extremity X-Ray(s): Ankle, Left PERIPHERAL IV DATA: Not applicable SIGNED BY: RAFAEL Kaur) May 07, 2024 10:00 AM documented in this encounter [facility] 05-07-2024 Note HNO ID: [id number] Author: LOIDA HAILE RT(R) Service: ? Author Type: Technologist Type: Progress Notes Filed: 05/07/2024 10:00 Note Text: Radiology Service Progress Note PATIENT NAME: Rere Knutson DATE OF SERVICE: May 07, 2024 TIME: 10:00 AM PATIENT IDENTITY VERIFICATION COMPLETED USING TWO (2) IDENTIFIERS: Name and Date of confirmed by patient verbally. FALL SCREENING: Has the patient had 2 falls in the last year or 1 fall with injury or currently using an Ambulatory Assistive Device (Walker, Cane, Wheelchair, Crutches, etc.)? No PATIENT GENDER DATA: Female. status: : No status: NO. PATIENT RELEVANT IMPLANT DATA REVIEWED: Not Applicable PATIENT PRESENTS WITH AN IMPLANTABLE OR ATTACHED RN CARE MANAGER: No RADIOLOGY DEPARTMENT: General X-ray: Exam(s) Completed: Lower Extremity X-Ray(s): Ankle, Left PERIPHERAL IV DATA: Not applicable SIGNED BY: RT Natasha(Bertin) May 07, 2024 10:00 AM [facility] 05-07-2024 Instructions Paula Fitzgerald PA-C - 05/07/2024 9:49 AM EDT May get incisions wet in the shower, by allowing the water to run over them. Avoid scrubbing incisions. Avoid soaking your leg in a hot tub, bath tub or pool until you are at least 3 weeks post op and incisions well healed. Do not apply lotions or ointments to your incisions until you are 3 weeks post op and incisions are well healed. No high impact - progress low impact activity per tolerance documented in this encounter [facility] 05-07-2024 Note HNO ID: [id number] Author: NELLY BAXTER LPN Service: ? Author Type: LICENSED NURSE Type: Progress Notes Filed: 05/14/2024 07:14 Note Text: Sutures removed from incisions to left knee without difficulty. No redness, no drainage noted. New steri strips applied. [facility] 05-07-2024 History of Presen t illness Narrative Sutures removed from incisions to left knee without difficulty. No redness, no drainage noted. New steri strips applied. Images from the original note were not included. Post Op Follow Up Visit Rere Knutson returns 19 days s/p Left knee diagnostic arthroscopy. 2.Debridement of ACL scar. 3.Removal of painful tibial screw. DOS: 04/18/24 Has been progressing well in regard to knee. Reports popping left PAIN EVALUATION 05/07/2024 0917 Pain Level: 5 5 at its worse after walking Pain Location: Knee-Left Description: Aching;Dull;Tightness Duration Amount of Time: 2.5 Duration Units: Weeks Frequency: Intermittent Intervention/Comfort measure: Cold;Relaxation;Exercise elevating, PT Weight bearing: full Physical therapy going well Review of Symptoms: General: no fevers, chills, nausea/vomiting, malaise CV: No chest pain, no calf pain or redness Pulm: No shortness of breath GI: No nausea, vomiting or constipation HEENT: No head ache Physical Examination: This is a well appearing, well nourished patient in no acute distress. Breathes easily and has normal chest wall excursion. Affect is normal. Left knee: Sutures removed without incident. Re enforced with steri strips Incisions are healing well with no erythema, drainage, induration. There are no signs of infection Effusion: trace Patellar Mobility: 1.5 quadrant medial, lateral, inferior, superior Palpation: mild medial joint line tenderness ROM: 0 extension, 110 flexion SLR: no lag Quad: symmetric tone Bilateral calves supple, non-tender. No palpable cords 5/5 strength resisted PF, DF, EHL Impression: 19 days s/p left knee scope removal tibial interference screw. No evidence of infection or DVT Left ankle snapping Plan: Discussed Intra operative and post operative course and expectations discussed. Arthroscopy pictures reviewed [facility] per guidelines. Precautions discussed Re enforced importance of obtaining and maintaining full extension Wound Care: May get incisions wet in the shower. Avoid hot tub, bath tub or pool, until at least 3 weeks post op and incisions well healed. Follow-up: 4 weeks Paula Fitzgerald PA-C documented in this encounter [facility] 05-07-2024 Note HNO ID: [id number] Author: PAULA FITZGERALD PA-C Service: ? Author Type: Physician Maintenance Helper Type: Progress Notes Filed: 05/14/2024 07:14 Note Text: Post Op Follow Up Visit Rere Knutson returns 19 days s/p Left knee diagnostic arthroscopy. 2.Debridement of ACL scar. 3.Removal of painful tibial screw. DOS: 04/18/24 Has been progressing well in regard to knee. Reports popping left PAIN EVALUATION 05/07/2024 0917 Pain Level: 5 5 at its worse after walking Pain Location: Knee-Left Description: Aching;Dull;Tightness Duration Amount of Time: 2.5 Duration Units: Weeks Frequency: Intermittent Intervention/Comfort measure: Cold;Relaxation;Exercise elevating, PT Weight bearing: full Physical therapy going well Review of Symptoms: General: no fevers, chills, nausea/vomiting, malaise CV: No chest pain, no calf pain or redness Pulm: No shortness of breath GI: No nausea, vomiting or constipation HEENT: No head ache Physical Examination: This is a well appearing, well nourished patient in no acute distress. Breathes easily and has normal chest wall excursion. Affect is normal. Left knee: Sutures removed without incident. Re enforced with steri strips Incisions are healing well with no erythema, drainage, induration. There are no signs of infection Effusion: trace Patellar Mobility: 1.5 quadrant medial, lateral, inferior, superior Palpation: mild medial joint line tenderness ROM: 0 extension, 110 flexion SLR: no lag Quad: symmetric tone Bilateral calves supple, non-tender. No palpable cords 5/5 strength resisted PF, DF, EHL Impression: 19 days s/p left knee scope removal tibial interference screw. No evidence of infection or DVT Left ankle snapping Plan: Discussed Intra operative and post operative course and expectations discussed. Arthroscopy pictures reviewed [facility] per guidelines. Precautions discussed Re enforced importance of obtaining and maintaining full extension Wound Care: May get incisions wet in the shower. Avoid hot tub, bath tub or pool, until at least 3 weeks post op and incisions well healed. Follow-up: 4 weeks Paula Fitzgerald PA-C [facility] 05-06-2024 Note HNO ID: [id number] Author: KENDRA HOUSER PTA Service: ? Author Type: Medical Record Retrieval Specialist Type: Progress Notes Filed: 05/06/2024 15:32 Note Text: Episode Visit Count: 3 Therapist That Will Accept/Oversee The Plan Of Care: Samuel Velasquez PT, DPT Start of Care Date: 04/29/24 Onset Date: 08/26/19 Plan of Care Certification Date: 04/29/24 Next Certification Due Date: 06/10/24 Patient Identified by Name and Date of : Yes REHABILITATION AND SPORTS THERAPY PHYSICAL THERAPY TREATMENT NOTE ASSESSMENT: Rere Knutson tolerated the session with decreased symptoms and no issues. She demonstrated improvements in left quad set during supine exercises along with addition of step ups this session. The patient will continue to benefit from ongoing skilled physical therapy to progress toward set goals. PLAN FOR NEXT VISIT: Continue per 04/29 plan: L knee ROM and strengthening and LLE balance and proprioception. Promote full quad strength for TKE SUBJECTIVE: Patient reports soreness after last visit but overall went well. Pain: Pain Pain Level: 3 Pain Location: Knee - Left Post Treatment Pain Post Treatment Pain Level: 0 Post Treatment Symptoms: numb OBJECTIVE MEASURES WITH LEVEL OF FUNCTION: Knee Observations R Knee Girth (cm): 45 cm L Knee Girth (cm): 47.4 cm L knee post VASO: 46.2cm TREATMENT: Therapeutic Exercise: 1: Nustep L1 x5' for increased knee mobility 2: QS w/ towel roll quick flicks to holds ~5 seconds x 10 3: QS plus SLR left only 2 x 10 4: L SL MSLR ( hip adductors) left only x 20 5: R SL L LSLR ( hip abd) 2 x 10* 6: prone over pillow L hip extension L x 20 7: prone HS curl L only x 20 8: hees slides with strap x 20 9: calf stretch off step 3/30sec 10: 4 step ups to SLS with cues for QS LLE 2x10 Skilled Intervention: Patient was educated in proper exercise technique and purpose for exercises. Skilled judgment was used in selection of appropriate interventions. Correct performance of therapeutic exercises was facilitated with verbal and visual cuing. Modalities: Vasopneumatic Treatment Body Region Treated - Vasopneumatic Treatment: Left knee Patient Position: Semireclined with towel roll under knee Compression mmHg: min-42 degrees Minutes: 15 Skilled Intervention: Proper administration and selection of modality based on clinical presentation, deficits, and needs. Patient response monitored throughout treatment. Billing Therapeutic Exercise Treatment Minutes: 30 * Vasopneumatic Treatment: 1 unit Skilled Treatment Time Minutes (timed and untimed codes): 45 Total Session Time (minutes): 45 Session Start Time : 1445 Session Stop Time : [address] [facility] 05-06-2024 History of Presen t illness Narrative Episode Visit Count: 3 Therapist That Will Accept/Oversee The Plan Of Care: Samuel Velasquez PT, DPT Start of Care Date: 04/29/24 Onset Date: 08/26/19 Plan of Care Certification Date: 04/29/24 Next Certification Due Date: 06/10/24 Patient Identified by Name and Date of : Yes REHABILITATION AND SPORTS THERAPY PHYSICAL THERAPY TREATMENT NOTE ASSESSMENT: Rere Knutson tolerated the session with decreased symptoms and no issues. She demonstrated improvements in left quad set during supine exercises along with addition of step ups this session. The patient will continue to benefit from ongoing skilled physical therapy to progress toward set goals. PLAN FOR NEXT VISIT: Continue per 04/29 plan: L knee ROM and strengthening and LLE balance and proprioception. Promote full quad strength for TKE SUBJECTIVE: Patient reports soreness after last visit but overall went well. Pain: Pain Pain Level: 3 Pain Location: Knee - Left Post Treatment Pain Post Treatment Pain Level: 0 Post Treatment Symptoms: numb OBJECTIVE MEASURES WITH LEVEL OF FUNCTION: Knee Observations R Knee Girth (cm): 45 cm L Knee Girth (cm): 47.4 cm L knee post VASO: 46.2cm TREATMENT: Therapeutic Exercise: 1: Nustep L1 x5' for increased knee mobility 2: QS w/ towel roll quick flicks to holds ~5 seconds x 10 3: QS plus SLR left only 2 x 10 4: L SL MSLR ( hip adductors) left only x 20 5: R SL L LSLR ( hip abd) 2 x 10* 6: prone over pillow L hip extension L x 20 7: prone HS curl L only x 20 8: hees slides with strap x 20 9: calf stretch off step 3/30sec 10: 4 step ups to SLS with cues for QS LLE 2x10 Skilled Intervention: Patient was educated in proper exercise technique and purpose for exercises. Skilled judgment was used in selection of appropriate interventions. Correct performance of therapeutic exercises was facilitated with verbal and visual cuing. Modalities: Vasopneumatic Treatment Body Region Treated - Vasopneumatic Treatment: Left knee Patient Position: Semireclined with towel roll under knee Compression mmHg: min-42 degrees Minutes: 15 Skilled Intervention: Proper administration and selection of modality based on clinical presentation, deficits, and needs. Patient response monitored throughout treatment. Billing Therapeutic Exercise Treatment Minutes: 30 * Vasopneumatic Treatment: 1 unit Skilled Treatment Time Minutes (timed and untimed codes): 45 Total Session Time (minutes): 45 Session Start Time : 1445 Session Stop Time : 1530 Kendra Houser PTA documented in this encounter [facility] 05-02-2024 History of Presen t illness Narrative Program_ID:[id number] Access Code: [email or web address] URL: [email or web address] Date: 05-02-2024 Prepared By: LUZ QUIJANO Program Notes Exercises - Supine Quad Set - 1 x daily - 5 x weekly - 1-3 sets - 10 reps - Active Straight Leg Raise with Quad Set - 1 x daily - 5 x weekly - 1-3 sets - 10 reps - Sidelying Hip Adduction - 1 x daily - 5 x weekly - 3 sets - 10 reps - Sidelying Hip Abduction - 1 x daily - 7 x weekly - 3 sets - 10 reps - Hip Extension with Leg Straight - 1 x daily - 7 x weekly - 3 sets - 10 reps - Supine Heel Slide - 1 x daily - 7 x weekly - 1-3 sets - 10 reps Episode Visit Count: 2 Therapist That Will Accept/Oversee The Plan Of Care: Samuel Velasquez PT, DPT Start of Care Date: 04/29/24 Onset Date: 08/26/19 Plan of Care Certification Date: 04/29/24 Next Certification Due Date: 06/10/24 Patient Identified by Name and Date of : Yes REHABILITATION AND SPORTS THERAPY PHYSICAL THERAPY TREATMENT NOTE ASSESSMENT: Rere Knutson tolerated the session with increased symptoms after exercise within the 2 point rule, though pain reduced after all. She demonstrated improvements in range of motion. HEP updated to include hip strengthening four-way's. The patient will continue to benefit from ongoing skilled physical therapy to progress toward set goals. PLAN FOR NEXT VISIT: Continue per 04/29 plan: L knee ROM and strengthening and LLE balance and proprioception. Promote full quad strength for TKE. 05/02-review HEP. SUBJECTIVE: Pt reports knee is stiff and sore, but pain is manageable. Pain: Pain Pain Level: 3 Pain Location: Knee - Left Post Treatment Pain Post Treatment Pain Level: 4 Post Treatment Pain Location: Knee - Left (after ex) Post Treatment Symptoms: cold and numb after cold compression. OBJECTIVE MEASURES WITH LEVEL OF FUNCTION: LE AROM L Knee Extension: 2 Degrees L Knee Flexion: 121 Degrees TREATMENT: Therapeutic Exercise: 1: QS with quick flicks to activate efficient quad contraction, multiple reps 2: QS w/ towel roll quick flicks to holds ~5 seconds x 5* 3: QS plus SLR left only 2 x 10* (cues for quad set first) 4: L SL MSLR ( hip adductors) left only x 20* 5: R SL L LSLR ( hip abd) 2 x 10* 6: prone over pillow L hip extension L x 20* 7: prone HS curl L only x 20 8: SAQ x 3, stopped due to pt's complaints of clunking 9: hees slides x 5* Skilled Intervention: Patient was educated in proper exercise technique and purpose for exercises. Reviewed and educated patient on additions/changes for home exercise program as above (*). Skilled judgment was used in selection of appropriate interventions. Provided written instruction for home exercise program to facilitate proper performance and compliance. Correct performance of therapeutic exercises was facilitated with verbal, visual, and tactile cuing. Modalities: Vasopneumatic Treatment Body Region Treated - Vasopneumatic Treatment: Left knee Patient Position: Semireclined with towel roll under knee Compression mmHg: min-42 degrees Minutes: 15 Skilled Intervention: Proper administration and selection of modality based on clinical presentation, deficits, and needs. Patient response monitored throughout treatment. Home Exercise Program Assigned: 1: Access Code: [email or web address] URL: [email or web address] Date: 05/02/2024 Prepared by: LUZ QUIJANO Exercises - Supine Quad Set - 1 x daily - 5 x weekly - 1-3 sets - 10 reps - Active Straight Leg Raise with Quad Set - 1 x daily - 5 x weekly - 1-3 sets - 10 reps - Sidelying Hip Adduction - 1 x daily - 5 x weekly - 3 sets - 10 reps - Sidelying Hip Abduction - 1 x daily - 7 x weekly - 3 sets - 10 reps - Hip Extension with Leg Straight - 1 x daily - 7 x weekly - 3 sets - 10 reps - Supine Heel Slide - 1 x daily - 7 x weekly - 1-3 sets - 10 reps 2: -updated HEP , encouraged pt to stop QS in heel prop due to hyperextension. 3: Texted Billing Therapeutic Exercise Treatment Minutes: 42 * Vasopneumatic Treatment: 1 unit Skilled Treatment Time Minutes (timed and untimed codes): 57 Total Session Time (minutes): 57 Session Start Time : 1453 Session Stop Time : 1550 Luz Quijano PTA documented in this encounter [facility] 05-02-2024 Note HNO ID: [id number] Author: LUZ QUIJANO PTA Service: ? Author Type: Medical Record Retrieval Specialist Type: Progress Notes Filed: 05/02/2024 19:06 Note Text: Episode Visit Count: 2 Therapist That Will Accept/Oversee The Plan Of Care: Samuel Velasquez PT, DPT Start of Care Date: 04/29/24 Onset Date: 08/26/19 Plan of Care Certification Date: 04/29/24 Next Certification Due Date: 06/10/24 Patient Identified by Name and Date of : Yes REHABILITATION AND SPORTS THERAPY PHYSICAL THERAPY TREATMENT NOTE ASSESSMENT: Rere Knutson tolerated the session with increased symptoms after exercise within the 2 point rule, though pain reduced after all. She demonstrated improvements in range of motion. HEP updated to include hip strengthening four-way's. The patient will continue to benefit from ongoing skilled physical therapy to progress toward set goals. PLAN FOR NEXT VISIT: Continue per 04/29 plan: L knee ROM and strengthening and LLE balance and proprioception. Promote full quad strength for TKE. 05/02-review HEP. SUBJECTIVE: Pt reports knee is stiff and sore, but pain is manageable. Pain: Pain Pain Level: 3 Pain Location: Knee - Left Post Treatment Pain Post Treatment Pain Level: 4 Post Treatment Pain Location: Knee - Left (after ex) Post Treatment Symptoms: cold and numb after cold compression. OBJECTIVE MEASURES WITH LEVEL OF FUNCTION: LE AROM L Knee Extension: 2 Degrees L Knee Flexion: 121 Degrees TREATMENT: Therapeutic Exercise: 1: QS with quick flicks to activate efficient quad contraction, multiple reps 2: QS w/ towel roll quick flicks to holds ~5 seconds x 5* 3: QS plus SLR left only 2 x 10* (cues for quad set first) 4: L SL MSLR ( hip adductors) left only x 20* 5: R SL L LSLR ( hip abd) 2 x 10* 6: prone over pillow L hip extension L x 20* 7: prone HS curl L only x 20 8: SAQ x 3, stopped due to pt's complaints of clunking 9: hees slides x 5* Skilled Intervention: Patient was educated in proper exercise technique and purpose for exercises. Reviewed and educated patient on additions/changes for home exercise program as above (*). Skilled judgment was used in selection of appropriate interventions. Provided written instruction for home exercise program to facilitate proper performance and compliance. Correct performance of therapeutic exercises was facilitated with verbal, visual, and tactile cuing. Modalities: Vasopneumatic Treatment Body Region Treated - Vasopneumatic Treatment: Left knee Patient Position: Semireclined with towel roll under knee Compression mmHg: min-42 degrees Minutes: 15 Skilled Intervention: Proper administration and selection of modality based on clinical presentation, deficits, and needs. Patient response monitored throughout treatment. Home Exercise Program Assigned: 1: Access Code: [email or web address] URL: [email or web address] Date: 05/02/2024 Prepared by: LUZ QUIJANO Exercises - Supine Quad Set - 1 x daily - 5 x weekly - 1-3 sets - 10 reps - Active Straight Leg Raise with Quad Set - 1 x daily - 5 x weekly - 1-3 sets - 10 reps - Sidelying Hip Adduction - 1 x daily - 5 x weekly - 3 sets - 10 reps - Sidelying Hip Abduction - 1 x daily - 7 x weekly - 3 sets - 10 reps - Hip Extension with Leg Straight - 1 x daily - 7 x weekly - 3 sets - 10 reps - Supine Heel Slide - 1 x daily - 7 x weekly - 1-3 sets - 10 reps 2: -updated HEP , encouraged pt to stop QS in heel prop due to hyperextension. 3: Texted Billing Therapeutic Exercise Treatment Minutes: 42 * Vasopneumatic Treatment: 1 unit Skilled Treatment Time Minutes (timed and untimed codes): 57 Total Session Time (minutes): 57 Session Start Time : 1453 Session Stop Time : [address] [facility] 04-29-2024 Note HNO ID: [id number] Author: SAMUEL VELASQUEZ PT Service: ? Author Type: Physical Therapist Type: Progress Notes Filed: 04/29/2024 17:48 Note Text: Episode Visit Count: 1 Therapist That Will Accept/Oversee The Plan Of Care: Samuel Velasquez PT, DPT Start of Care Date: 04/29/24 Onset Date: 08/26/19 Plan of Care Certification Date: 04/29/24 Next Certification Due Date: 06/10/24 Patient Identified by Name and Date of : Yes REHABILITATION AND SPORTS THERAPY PHYSICAL THERAPY EVALUATION PLAN OF CARE: Assessment: Rere Knutson presents with chief complaint of L knee pain following arthroscopic surgery w/ ACL removal of screw that interferes with walking, stair negotiation, physical activities, recreational activities, working, squatting, kneeling (worse in morning or evening stiff/sore with lack of movement) . She presents with impairments in balance, flexibility, gait, independence in exercise, joint mobility, overall function, and range of motion. PROMIS? (Patient-Reported Outcomes Measurement Information System) scores were reviewed and identified as within normal limits. Prognosis for therapy is Excellent due to: current objective clinical presentation, good overall health status, positive past response to therapy . She will benefit from skilled therapy services to meet the goals established for this plan of care as noted below. Goals for Episode of Care: established 04/29/24 [place] in home exercise program. Patient will decrease pain to 0/10 at rest and with functional activities to allow patient to improve ambulation and standing tolerance for ADLs. Patient will increase active ROM of L knee flexion to 140 to match the opposite extremity to allow pt to to improve postural alignment, to improve performance of ADLs, to improve gait mechanics / gait pattern , and to decrease falls risks . Patient will demonstrate increase in LLE strength to 5/5 during manual muscle testing in order to improve function for home management tasks, leisure / recreation skills, light functional tasks, moderate to heavy functional tasks, prior functional tasks, and work tasks. Pt will improve postural awareness to allow FWB through LLE. Pt will increase her ability to perform 10/10 minisquats with FWB through both extremities to reflect improved functional strength. Pt will improve semi-tandem, tandem, and L single leg stance during the 4 stage balance test to decrease risk for falls. Patient Goals: Decrease pain and strengthen L knee to be able to climb stairs normally and return to sports in her freetime Time Frame for Goals and Treatment : 06/10/24 Planned Interventions, Frequency, and Duration: Current Frequency: 2x/week Duration: 6 weeks Total Number of Visits Planned: 12 Planned Treatment Interventions: Therapeutic exercise (02253), Neuromuscular re-education (72181), Manual therapy (66056), Therapeutic activities (17710), Gait Training (76958), Functional training, Vasopneumatic Treatment (78818) PLAN FOR NEXT VISIT: Start L knee ROM and strengthening and LLE balance and proprioception. Promote full quad strength for TKE. Patient demonstrates good understanding of plan of care and treatment. The above goals and plan of care were discussed and agreed upon by patient/family. SUBJECTIVE: Pt states her dorctor wants her to restrengthen her L MCL and the surrounding tissues. She had an ACL reconstruction. She has popping and weakness. Intermittenetly she states n/t below knee if not moved for a period of time. Pt states she babies her L leg. Her pain is not as bad post-surgery but she can feel the weakness and soreness in her L knee. 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 Recreation / Current Exercise: sports (volleyball, pickleball, biking) Home Environment Patient Lives With: Family Home Type: Multi-Level with First Floor Set-Up Entry To Home: Without Rail Intake Information: Prescription present Previous Treatment: Physical Therapy , Massage , Exercises per physician, Ice Falls Interview: Fall without injury in the last year Pain: Pain Pain Level: 3 Pain Location: Knee - Left Description: Aching, Dull Post Treatment Pain Post Treatment Pain Level: No Change PROMIS Scales 04/28/2024 03/21/2024 Higher is Better Phys Func - Score 48 (within normal limits) 43 (mild dysfunction) Phys Func - Percentile 42 24 Self-Eff Symptom - Score 45 (more content not included)... [facility] 04-29-2024 History of Presen t illness Narrative Images from the original note were not included. Episode Visit Count: 1 Therapist That Will Accept/Oversee The Plan Of Care: Samuel Velasquez PT, DPT Start of Care Date: 04/29/24 Onset Date: 08/26/19 Plan of Care Certification Date: 04/29/24 Next Certification Due Date: 06/10/24 Patient Identified by Name and Date of : Yes REHABILITATION AND SPORTS THERAPY PHYSICAL THERAPY EVALUATION PLAN OF CARE: Assessment: Rere Knutson presents with chief complaint of L knee pain following arthroscopic surgery w/ ACL removal of screw that interferes with walking, stair negotiation, physical activities, recreational activities, working, squatting, kneeling (worse in morning or evening stiff/sore with lack of movement) . She presents with impairments in balance, flexibility, gait, independence in exercise, joint mobility, overall function, and range of motion. PROMIS (Patient-Reported Outcomes Measurement Information System) scores were reviewed and identified as within normal limits. Prognosis for therapy is Excellent due to: current objective clinical presentation, good overall health status, positive past response to therapy . She will benefit from skilled therapy services to meet the goals established for this plan of care as noted below. Goals for Episode of Care: established 04/29/24 [place] in home exercise program. Patient will decrease pain to 0/10 at rest and with functional activities to allow patient to improve ambulation and standing tolerance for ADLs. Patient will increase active ROM of L knee flexion to 140 to match the opposite extremity to allow pt to to improve postural alignment, to improve performance of ADLs, to improve gait mechanics / gait pattern , and to decrease falls risks . Patient will demonstrate increase in LLE strength to 5/5 during manual muscle testing in order to improve function for home management tasks, leisure / recreation skills, light functional tasks, moderate to heavy functional tasks, prior functional tasks, and work tasks. Pt will improve postural awareness to allow FWB through LLE. Pt will increase her ability to perform 10/10 minisquats with FWB through both extremities to reflect improved functional strength. Pt will improve semi-tandem, tandem, and L single leg stance during the 4 stage balance test to decrease risk for falls. Patient Goals: Decrease pain and strengthen L knee to be able to climb stairs normally and return to sports in her freetime Time Frame for Goals and Treatment : 06/10/24 Planned Interventions, Frequency, and Duration: Current Frequency: 2x/week Duration: 6 weeks Total Number of Visits Planned: 12 Planned Treatment Interventions: Therapeutic exercise (14045), Neuromuscular re-education (89589), Manual therapy (31947), Therapeutic activities (13623), Gait Training (01034), Functional training, Vasopneumatic Treatment (89652) PLAN FOR NEXT VISIT: Start L knee ROM and strengthening and LLE balance and proprioception. Promote full quad strength for TKE. Patient demonstrates good understanding of plan of care and treatment. The above goals and plan of care were discussed and agreed upon by patient/family. SUBJECTIVE: Pt states her dorctor wants her to restrengthen her L MCL and the surrounding tissues. She had an ACL reconstruction. She has popping and weakness. Intermittenetly she states n/t below knee if not moved for a period of time. Pt states she babies her L leg. Her pain is not as bad post-surgery but she can feel the weakness and soreness in her L knee. 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 Recreation / Current Exercise: sports (volleyball, pickleball, biking) Home Environment Patient Lives With: Family Home Type: Multi-Level with First Floor Set-Up Entry To Home: Without Rail Intake Information: Prescription present Previous Treatment: Physical Therapy , Massage , Exercises per physician, Ice Falls Interview: Fall without injury in the last year Pain: Pain Pain Level: 3 Pain Location: Knee - Left Description: Aching, Dull Post Treatment Pain Post Treatment Pain Level: No Change PROMIS Scales 04/28/2024 03/21/2024 Higher is Better Phys Func - Score 48 (within normal limits) 43 (mild dysfunction) Phys Func - Percentile 42 24 Self-Eff Symptom - Score 45 (Average) Self-Eff Symptom - Percentile 31 T-scores: mean of general population = 50. 5 points is clinically meaningfully difference Percentiles provide an indication of how the patient's score ranks in relation to the general population. Higher percentile rankings indicate better function/quality of life. 50th percentile is the average of the general population and indicates half of respondents had a worse score. OBJECTIVE MEASURES WITH LEVEL OF FUNCTION: Knee Observations L Knee Presents with: Incision L Incision: stitiches still intact L Knee Palpation Tenderness: Medial joint line, Lateral joint line, MCL, Tibial tuberosity LE AROM R Knee Extension: -4 Degrees R Knee Flexion: 140 Degrees L Knee Extension: -3 Degrees L Knee Flexion: 105 Degrees LE Strength R LE Strength: 4-/5 L LE Strength: 4+/5 Functional Strength Functional Strength: Minisquat Minisquat: 10 (antalgic on LLE, weight-bearing decreased onto LLE) Gait Weight Bearing Status: FWB Gait: Independent Gait Deviations: Left Lower Extremity Gait Deviations Left Lower Extremity: Knee flexion during stance increased, Weight bearing decreased, Lacks full knee extension during terminal swing 4 Stage Balance Test Narrow base of support (sec): 30 sec Semi-tandem base of support (sec): 15 sec Tandem base of support (sec): 19 sec Single leg stance - right (sec): 30 sec Single leg stance - left (sec): 9 sec Education: Education Learning Preferences: Demonstration, Explanation, Performance, Printed Materials Barriers: None Learning/educational needs: Home exercise program, Plan of Care, Gait Training, Body Mechanics Education Provided: Yes, see treatment interventions for education provided Education Provided To: Patient Education Mode/Type: Other: See Comment (Pt was educated on eval findings and POC) TREATMENT: Evaluation Billing * Evaluation Low Complexity: 1 Unit Skilled Treatment Time Minutes (timed and untimed codes): 40 Total Session Time (minutes): 40 Session Start Time : 1400 Session Stop Time : 1440 CANDIS Reyes Supervising therapist was present and guided the care of the patient for the entire session on this date. All documentation was reviewed and agreed upon. Samuel Velasquez PT, DPT documented in this encounter [facility] 04-18-2024 Nurse Note POST OP LEARNING RESPONSE INSTRUCTION PROVIDED TO: Patient and Mother METHOD OF INSTRUCTION: Written instruction/Handouts Verbal instruction PATIENT / FAMILY RESPONSE: Verbalizes understanding of: INFECTION MANAGEMENT-Signs and symptoms of an infection and importance of contacting the physician MEDICAL REGIMEN-Importance of following prescribed medical regimen MEDICATION DOSE MISSED-Correct action to take if medication dose is missed MEDICATION PRESCRIBED-Accurate knowledge of prescribed medication prior to discharge MEDICATION ROUTE-Correct route for administration of the prescribed medication MEDICATION SIDE EFFECTS-Side effects associated with the medication that warrant a call to the physician PAIN MANAGEMENT-Effective strategies to manage pain in addition to pain medication PHYSICAL RESTRICTIONS-Physical restrictions and recommendations after discharge from the hospital POST-OPERATIVE INSTRUCTIONS-Correct actions to take to reduce postoperative complications POST-PROCEDURE INSTRUCTIONS-Correct actions to take to reduce post procedure complications FOLLOW-UP PLAN: Patient instructed to call with any further issues Follow-up with Primary Care SUPPLEMENTAL MATERIAL: None REFERRAL (RECOMMENDATION): None Electronically Signed By: Cassi Church RN In Department: [facility] 04-18-2024 Nurse Note POST OP LEARNING RESPONSE INSTRUCTION PROVIDED TO: Patient and Mother METHOD OF INSTRUCTION: Written instruction/Handouts Verbal instruction PATIENT / FAMILY RESPONSE: Verbalizes understanding of: INFECTION MANAGEMENT-Signs and symptoms of an infection and importance of contacting the physician MEDICAL REGIMEN-Importance of following prescribed medical regimen MEDICATION DOSE MISSED-Correct action to take if medication dose is missed MEDICATION PRESCRIBED-Accurate knowledge of prescribed medication prior to discharge MEDICATION ROUTE-Correct route for administration of the prescribed medication MEDICATION SIDE EFFECTS-Side effects associated with the medication that warrant a call to the physician PAIN MANAGEMENT-Effective strategies to manage pain in addition to pain medication PHYSICAL RESTRICTIONS-Physical restrictions and recommendations after discharge from the hospital POST-OPERATIVE INSTRUCTIONS-Correct actions to take to reduce postoperative complications POST-PROCEDURE INSTRUCTIONS-Correct actions to take to reduce post procedure complications FOLLOW-UP PLAN: Patient instructed to call with any further issues Follow-up with Primary Care SUPPLEMENTAL MATERIAL: None REFERRAL (RECOMMENDATION): None Electronically Signed By: Cassi Church RN In Department: [facility] PRE OP LEARNING ASSESSMENT PROCEDURE/SURGERY: SURGERY: Left knee READINESS TO LEARN COGNITIVE ABILITY: Alert and oriented MOTIVATION TO LEARN: Eager FAMILY SUPPORT: High - Very involved in pt care PATIENT LEARNS BEST BY: Written Instruction - Hand-outs Verbal Instruction FACTORS AFFECTING LEARNING: None PHYSICAL LIMITATIONS AFFECTING LEARNING: None Electronically Signed By: Judit Keys RN In Department: [facility] documented in this encounter [facility] 04-18-2024 Surgery Surgical operation note BRIEF OP NOTE LOG ID: [id number] Surgery/Procedure Date: 04/18/2024 Incision/Procedure Start Time: 2:25 PM Incision Close/Procedure End Time: 3:06 PM Surgeon(s)/Proceduralist(s) and Maintenance Helper(s): Surgeons and Role: * Dionicio Vaca MD - Primary * Joss Angelo MD - Resident - Assisting Procedure(s): Left knee diagnostic arthroscopy, Left tibia removal of hardware Anesthesia: General Estimated Blood Loss: 10 mls Specimens: ID Type Source Tests Collected by Time Destination A : left knee hardware Implant/Device/Foreign Body Hardware/Device/Foreign Body SURGICAL PATHOLOGY Dionicio Vaca MD 04/18/2024 2:43 PM Complications: None Pre-Op/Pre-Procedure Diagnosis: Left knee hardware irritation. Post-Op/Post-Procedure Diagnosis: Same Post-op Plan: Abx: periop ancef VTE Prophylaxis: scds. 81mg aspirin BID Weightbearing: Weight bearing as tolerated left lower extremity Plan of care discussed with: Provider, RN, Patient. SIGNATURE: Joss Angelo MD PATIENT NAME: Rere Knutson DATE: April 18, 2024 TIME: 3:09 PM PAGER/CONTACT #: [phone] [facility] Work Phone: 04-18-2024 Surgical operatio n note BRIEF OP NOTE LOG ID: [id number] Surgery/Procedure Date: 04/18/2024 Incision/Procedure Start Time: 2:25 PM Incision Close/Procedure End Time: 3:06 PM Surgeon(s)/Proceduralist(s) and Maintenance Helper(s): Surgeons and Role: * Dionicio Vaca MD - Primary * Joss Angelo MD - Resident - Assisting Procedure(s): Left knee diagnostic arthroscopy, Left tibia removal of hardware Anesthesia: General Estimated Blood Loss: 10 mls Specimens: ID Type Source Tests Collected by Time Destination A : left knee hardware Implant/Device/Foreign Body Hardware/Device/Foreign Body SURGICAL PATHOLOGY Dionicio Vaca MD 04/18/2024 2:43 PM Complications: None Pre-Op/Pre-Procedure Diagnosis: Left knee hardware irritation. Post-Op/Post-Procedure Diagnosis: Same Post-op Plan: Abx: periop ancef VTE Prophylaxis: scds. 81mg aspirin BID Weightbearing: Weight bearing as tolerated left lower extremity Plan of care discussed with: Provider, RN, Patient. SIGNATURE: Joss Angelo MD PATIENT NAME: Rere Knutson DATE: April 18, 2024 TIME: 3:09 PM PAGER/CONTACT #: [phone] documented in this encounter [facility] 04-18-2024 Hospital Discharg e instructions Paula Fitzgerald PA-C - 04/18/2024 2:31 PM EDT Images from the original note were not included. ORTHOPAEDIC SURGERY - SPORTS MEDICINE Dionicio Vaca MD HOME INSTRUCTIONS Knee Arthroscopy The following instructions will help you know what to expect in the days following your surgery. Weight Bearing Status: Progressive weight bearing as tolerated with crutches as needed (ok to put as much weight as you feel comfortable on operative leg). Use crutches until you have good leg control Activities Rest as much as possible the first day or so after surgery. Heel prop for knee extension x 5-10 minutes (rest heel of foot on firm pillow) Perform 4-5 times/day Start the day after surgery It is EXTREMELY important that you regain your full extension (knee straightening) by your first post operative appointment. This plays a large role in your recovery and anticipated return to activity/sport. Perform the following knee exercise 10 times each hour (images of exercises below): Start the day after surgery Quad sets with 5-count hold, Ankle pumps, Knee bending Elevate your leg above the level of your heart to help with pain and swelling - 20-30 minute sessions intermittently. Laying flat place two to three pillows under your leg supporting knee, calf and foot - foot should be above your knee. Cold Gel Pack to assist with pain control. Ice should not be in direct contact with your skin. Apply for 20-30 minutes not more frequently than every 2 hours. Recommend using routinely for 2-3 days after surgery, then as needed. Do the following to help minimize your risk of developing a blood clot: Compression Stockings: wear for the first 2 weeks after surgery, remove to shower and for cleaning (hand wash, air dry) Once dressing removed optional to wear at night while sleeping Early mobilization (up and moving every few hours while awake) DO NOT stay in bed, you are to be up as tolerated. Physical Therapy: start in 3 to 5 days - GOAL RANGE OF MOTION BY FIRST POST OP VISIT IS FULL EXTENSION (FULLY STRAIGHT LEG) and GREATER THAN 90 DEGREES FLEXION (KNEE BENDING) Driving: once off narcotics, walking without crutches and good leg control Wound Care Keep operative dressing CLEAN, DRY and INTACT Remove dressing 3 days after surgery Leave the Steri-strips (small white tapes across the incisions) in place. If no steri-strips or they come off with dressing cover incisions with a regular band aid. Keep incisons clean and dry. Do not apply lotions or ointments to incisions Observe the incision sites for increase redness/inflammation, drainage, foul odor Stitches will be removed at your first post op visit. Showerin days after surgery once the dressing has been removed. You must keep the incisions covered and dry. Suggestions: water proof band aid, plastic wrap, press and seal (remove after showering). DO NOT GET the INCISIONS WET. No submerging incision for approximately 4 weeks. No scrubbing. No scented lotions/ointments on incision. Diet Gradually resume your normal diet. The night of surgery begin with small quantities of food you normally prefer to eat, then progress to your normal eating pattern. Drink plenty of fluids. MEDICATIONS: Take with food medications can cause stomach upset/ nausea Recommend alternating Ibuprofen and acetaminophen every 3-4 hours for 2 to 3 days then as needed. Take Tramadol for severe breakthrough pain Pain & Anti-inflammatory/NSAID: Ibuprofen 600 mg Take 1 tablet every 6-8 hours with meals as needed for pain and swelling. Do not take NSAIDS if you have a history of kidney, liver or stomach ulcer disease or if you have a bleeding disorder or are taking Celebrex or blood thinning medications. STOP TAKING IF YOU DEVELOP STOMACH UPSET, WEIGHT GAIN, HEADACHES, sustained HIGH BLOOD PRESSURE or other issues - alert the office DO NOT TAKE ANY OTHER ANTI-INFLAMMATORY MEDICATION WHILE TAKING IBUPROFEN. Pain: Acetaminophen 500 mg Take 1 tablet every 4-6 hours as needed for pain. If taking tramadol only take 1 acetaminophen. Max 4000 mg a day for up to 5 days then Max 3000 mg a day after that . HYDROcodone-acetaminophen 5/325 mg Take 1 tablet every 6-8 hours for severe breakthrough pain Do not take any other opioid/narcotic pain medication while taking prescription pain mediation No driving while taking opiod/narcotic medication or muscle relaxant Call your PHYSICIAN for: Calf pain or unusual swelling in your leg Any shortness of breath, chest pain or abnormal coughing Severe nausea and vomiting > 24 hours Persistent or heavy bleeding Unusual odor, increased redness/inflammation or increasing or progressive drainage from incision or surgery area Increased pain unrelieved by rest, ice or medication Fever (greater than 101 degrees) Follow up - As scheduled - stitches will be removed at your first post op visit Future Appointments Date Time Provider Department Center 04/29/2024 3:00 PM Samuel Velasquez PT [facility] 05/03/2024 11:30 AM Paula Fitzgerald PA-C [facility] 05/31/2024 2:40 PM Paula Fitzgerald PA-C [facility] 07/12/2024 11:15 AM [facility] Do not hesitate to call if you have any questions or concerns. Office [phone] After hours call: [phone] (ask for the orthopaedic resident maintenance controller) POSTOPERATIVE KNEE EXERCISES - Start the Day After Surgery Quadriceps Sets: Contract our quadriceps muscle as if you are pushing the back of the knee down into the table. These are important straightening exercises. Hold for 5 seconds and repeat 10 times. It can be helpful to place a rolled up towel or small pillow behind your ankle when performing this. Ankle Pumps: Push your foot down (like pressing on a gas peddle) then pull it up towards your head. Do these frequently throughout the day. Straight Leg Raises: This exercise is optional, but think of it as bonus work!. This exercise may be difficult to perform initially. If you have a brace it is easier to do with the brace on and locked. Squeeze your quadriceps muscle to make your leg straight and stiff like a board. Slowly raise your leg off the surface and into the air about a foot or so. Gently lower back down to the surface. Perform this 10 times each session. Three sessions per day. documented in this encounter [facility] 04-18-2024 Note HNO ID: [id number] Author: SIRISHA BARKLEY APRN.CRNA Service: ? Author Type: Nurse Medical Sales Representative Type: Anesthesia Procedure Notes Filed: 04/18/2024 14:18 Note Text: ANESTHESIOLOGY PROCEDURE NOTE Airway General Information Procedure Start Time/Medication Administration: 04/18/2024 2:05 PM Procedure End Time: 04/18/2024 2:08 PM Patient location during procedure: OR Timeout Performed Pre-procedure: timeout performed Consent Obtained: Yes Patient identity confirmed: patient Staffing Performed by: TIMBER REPAIRER Indications and Patient Condition Indications for airway management: anesthesia Preoxygenated: yes anesthesia circuit Method: sleep Difficult Mask: No Final Airway Details Final airway type: supraglottic airway Number of attempts at approach: 1 Final Supraglottic Airway: i-gel Size 4 Seal Adequate: yes Airway not difficult SIGNATURE: Sirisha Barkley APRN.TIMBER REPAIRER PATIENT NAME: Rere Knutson DATE: April 18, 2024 TIME: 2:18 PM CSN: [id number] [facility] 04-18-2024 History and physical note UPDATED HISTORY AND PHYSICAL EXAMINATION SERVICE DATE: 04/18/2024 SERVICE TIME: 1355 PHYSICAL EXAM MUST BE COMPLETED ON ADMISSION The History and Physical (completed in the past 30 days) has been reviewed and the patient has been examined. The contents accurately reflect the patient's condition with the following additions or revisions since the H&P was completed. Examination indicates no changes. This H&P can be found in the Electronic Medical Record dated 04/11/24. SIGNATURE: Dionicio Vaca MD PATIENT NAME: Rere Knutson DATE: April 18, 2024 TIME: 1:59 PM [facility] Work Phone: 04-18-2024 History and physical note UPDATED HISTORY AND PHYSICAL EXAMINATION SERVICE DATE: 04/18/2024 SERVICE TIME: 1355 PHYSICAL EXAM MUST BE COMPLETED ON ADMISSION The History and Physical (completed in the past 30 days) has been reviewed and the patient has been examined. The contents accurately reflect the patient's condition with the following additions or revisions since the H&P was completed. Examination indicates no changes. This H&P can be found in the Electronic Medical Record dated 04/11/24. SIGNATURE: Dionicio Vaca MD PATIENT NAME: Rere Knutson DATE: April 18, 2024 TIME: 1:59 PM documented in this encounter [facility] 04-18-2024 Nurse Note PRE OP LEARNING ASSESSMENT PROCEDURE/SURGERY: SURGERY: Left knee READINESS TO LEARN COGNITIVE ABILITY: Alert and oriented MOTIVATION TO LEARN: Eager FAMILY SUPPORT: High - Very involved in pt care PATIENT LEARNS BEST BY: Written Instruction - Hand-outs Verbal Instruction FACTORS AFFECTING LEARNING: None PHYSICAL LIMITATIONS AFFECTING LEARNING: None Electronically Signed By: Judit Keys RN In Department: [facility] 04-17-2024 Telephone encounter Note Spoke with Dr Colunga's office today regarding letter faxed on 04/15/2024. they never received the letter. Our letter was re-faxed to [phone]. Carmen Gonzalez RN April 17, 2024 10:36 AM [facility] 04-17-2024 Miscellaneous Notes [address]oke with Dr Colunga's office today regarding letter faxed on 04/15/2024. they never received the letter. Our letter was re-faxed to [phone]. Carmen Gonzalez RN April 17, 2024 10:36 AM documented in this encounter [facility] 04-16-2024 Telephone encounter Note Spoke with patient on the phone, following her PACC visit. Patient reports her red, splotchy rashes that were present at the time of her PACC visit have completely resolved. Denies any current redness, rash on either of her legs. She states this had been mainly on her right leg but there was some on the left. She states she had followed up with her PCP who did some testing. States her thyroid medication was off so they adjusted this and states everything has normalized. All other labwork that her PCP was normal. Will communicate this update with Dr. Clement, along with the OR staff. Yesenia Barrios, AT, ATC [facility] Work Phone: 04-16-2024 Miscellaneous Notes Spoke with patient on the phone, following her PACC visit. Patient reports her red, splotchy rashes that were present at the time of her PACC visit have completely resolved. Denies any current redness, rash on either of her legs. She states this had been mainly on her right leg but there was some on the left. She states she had followed up with her PCP who did some testing. States her thyroid medication was off so they adjusted this and states everything has normalized. All other labwork that her PCP was normal. Will communicate this update with Dr. Clement, along with the OR staff. Yesenia Barrios, AT, ATC documented in this encounter [facility] 04-11-2024 Instructions Jamey White PA-C - 04/11/2024 3:18 PM EDT Images from the original note were not included. [facility] PATIENT PREOPERATIVE INSTRUCTIONS Dionicio Vaca MD has scheduled you for your procedure at this surgery center: [facility]: [phone] --[address] [address]. Please read below carefully for your personalized instructions. Dietary Restrictions: - No solid food after midnight. - You may have 12 ounces of clear liquids (water, clear juices such as apple juice or gatorade, carbonated beverages, clear tea, black coffee, jello) until 2 hours before scheduled arrival at facility. Medications: Unless instructed differently below, stay on all of your medications until your surgery. If you start any new medications after today's visit, please contact your surgeon. Pre-Surgery Med Instructions Medication Instructions CARD MAKER THYROID 120 mg tablet Take the day of surgery with a small sip of water thyroid (CARD MAKER THYROID) 15 mg tablet Take the day of surgery with a small sip of water If you start any new medications after today's visit, please contact the surgeon's office. Blood Thinning Medications: - Stop NSAIDS (Ibuprofen, Advil, Aleve, Motrin, Celebrex, Mobic, etc.) 7 days before surgery, as directed by your surgeon. - Stop Aspirin 7 days before surgery, as directed by your surgeon. - Stop Vitamin E, ALL multi-vitamins, herbals and dietary supplements 14 days before surgery. - You may take Tylenol (Acetaminophen) or any of your pain medications that do not contain aspirin or NSAIDS as needed. Important Reminders: - Candy, mints, and tobacco products are NOT permitted the morning of surgery. - Hearing aids, dentures and glasses may be worn the morning of surgery. - NO jewelry, body piercings, makeup, hairpins or contacts are to be worn the day of surgery. If you develop symptoms such as a fever, cold, or flu, or have other changes to your health within TWO DAYS of scheduled surgery or the morning of surgery, please contact the surgery center above. Personal Belongings: -Please have photo ID and insurance cards. -If you do not have a copy of advance directives on file with us, please bring a copy with you on the day of surgery. - Leave ALL valuables and money at home or with family members. For Outpatient Procedures: - YOU MUST HAVE A RESPONSIBLE FUNERAL DIRECTOR AND EMBALMER TAKE YOU HOME. A VIOLIN TUTOR OR MINE CAR MECHANIC CANNOT BE MADE A RESPONSIBLE FUNERAL DIRECTOR AND EMBALMER. - We recommend that a responsible person stays with you overnight to take care of you. - You cannot stay in a hotel alone after outpatient surgery. You will not be permitted to have your surgery, if you do not have someone to take care of you. Arrival Time for Surgery: - The Surgery Center or hospital where you are having surgery will call the afternoon before surgery (or Monday for Monday surgery) with a scheduled arrival time. - If you have not heard by 4 pm, please contact the surgery center above. Please be aware that emergency situations arise, which may delay or change your surgical time. If this happens, we will notify you as soon as possible and regret any inconvenience. If you already have an Advance Directive, please fax a copy to [phone] or email to for it to be added to your chart. If you do not have an Advance Directive, you can find the appropriate form and more information at [email or web address]. We recommend that you complete the Advance Directive form found on the website and bring it with you the day of your surgery. It can be witnessed and scanned into your chart that day. Jamey White PA-C documented in this encounter [facility] 04-11-2024 History and physical note PREANESTHESIA CONSULT CLINIC TELEHEALTH VISIT Patient has been identified by name and date of : Yes This is a virtual visit using [employer] Video Visit. It require patient-provider interaction for the medical decision making as documented below. Reason for contact: PACC visit Accompanied by: Self Scheduled Surgery: Procedure(s) (LRB): ARTHROSCOPY KNEE REMOVAL OF LOOSE OR FOREIGN BODY BILATERAL (Left) I have communicated my name and active licensure. The patient's identity and physical location were verified at the time of this visit. Either the patient or their legal unit support representative has been informed of the risks and benefits of -- and alternatives to -- treatment through a remote evaluation and consents to proceed with the evaluation remotely. ASSESSMENT: 1. Preop examination Scheduled for above procedure 2. Obesity, Class II, BMI 35-39.9 BMI 39 3. Hypothyroidism, unspecified type On CARD MAKER thyroid. Patient reports asymptomatic and feeling well on medication. Subjectively stable 4. GERD Every couple days in the past. Last symptoms a couple weeks ago. Currently diet controlled. Did not take prescription that was offered. 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 6. Rash Patient reports red and splotchy rash on back of legs and arms for a couple weeks that are itchy. She has been using benadryl cream on the area and states it tends to be worse at night. Improving over time. She reports it is present on both legs, but is worse on the right. I am unable to see the rash well through virtual visit. Since the rash includes the site of surgery, encouraged follow-up with PCP preop. Will send message to surgeon. Patient will keep me updated through [employer] METS: Walk a block or two on level ground (2.75 METs) Climb a flight of stairs or walk up a hill (5.50 METs) Participate in moderate recreational activities, such as golf, bowling, dancing, doubles tennis, or throwing a baseball or football (6.00 METs) Patient denies any chest pain or undue shortness of breath with the above physical activity. Rides bicycle, plays volleyball or pickleball occasionally ANESTHESIA FINDINGS: Intubation History: No history of difficult intubation Significant Anesthesia Considerations: Patient reports local anesthesia does not see to work well for her and she can feel what they're doing Airway Exam: General: Obese - BMI 39 Mallampati Score is CLASS II ULBT: Class II - Lower incisors can bite the upper lip below the lynne line Neck: Normal appearance and function Mouth: Normal tongue size and Mouth opening greater than 2 finger breaths Dentition: Intact Airway History: No abnormal airway history STOP BANG Score: Criteria: Tired BMI > 35 Score = 2 Subjective CHIEF COMPLAINT: Patient presents with: Pre-Op Visit HPI: This is a 29 year old female who presents with history of left ACL surgery approximately 7 years ago. Patient reports constant pain that is 5-8/10 with sharp and stabbing quality. She was diagnosed with chronic pain in his left knee and elects to proceed with above procedure ACTIVE PROBLEM LIST Hypothyroidism Obesity, Class II, Bmi 35-39.9 Eds (Donte-Danlos Syndrome) Gerd (Gastroesophageal Reflux Disease) PAST MEDICAL HISTORY No date: EDS (Donte-Danlos syndrome) No date: GERD (gastroesophageal reflux disease) No date: Hypothyroidism No date: Obesity, Class II, BMI 35-39.9 PAST SURGICAL HISTORY 2017: PAST SURGICAL HISTORY OF; Left Comment: knee ACL No date: PAST SURGICAL HISTORY OF; Left Comment: breast lumpectomy No date: PAST SURGICAL HISTORY OF; Right Comment: breast lumpectomy FAMILY HISTORY Problem Relation Age of Onset No Known Problems Mother Hypertension Father Anesthesia Problems No Family History Social History Tobacco Use Smoking status: Never Smokeless tobacco: Never Vaping Use Vaping status: Never Used Substance Use Topics Alcohol use: Never Drug use: Never ALLERGIES No Known Allergies MEDICATIONS: Current Outpatient Medications Medication Sig CARD MAKER THYROID 120 mg tablet Take 120 mg by mouth once daily. thyroid (CARD MAKER THYROID) 15 mg tablet Take 15 mg by mouth once daily. Total 135 mg daily No current facility-administered medications for this visit. COVID-19 Immunization Status Overdue - Covid-19 Vaccine ( season) Never done No completion, postpone, frequency change, or communication history exists for this topic. Had COVID-19 2019 and 2021. Denies complications or hospitalization. REVIEW OF SYSTEMS: Pain Assessment: General: No weight loss, malaise or fevers. Neuro: No history of TIA's, stroke, SPORTS WRITER tumor, impaired sensorium, hemiplegia, paraplegia or quadraplegia. No neurological symptoms or problems. Respiratory: No history of current cough or dyspnea, or pneumonia in the past 6 weeks. No history of respiratory/pulmonary symptoms or problems. Cardiovascular: No history of HTN requiring medication, no history of angina, CHF, IN, cardiac surgery or stents. Denies rest pain, gangrene or revascularization/amputation for PVD. No history of cardiovascular symptoms or problems. GI: Positive for GERD, Negative for Nausea, Vomiting, Abdominal pain, Hepatitis, Pancreatitis : No history of dysuria, frequency or incontinence,, stones or chronic kidney disease DEVOPS CONSULTANT: Negative for abnormal vaginal bleeding, abnormal vaginal discharge. : Denies, Patient's last menstrual period was 03/28/2024 (approximate). Endocrine: Hypothyroidism Denies DM/symptoms Denies oral steroids in the last 30 days Hematology: No history of bleeding or clotting disorder. Pt is not taking anti-coagulation or platelet medications. No history of hematological symptoms or problems. Oncology: No history of CA metastasis, chemo within 30 days, or radiotherapy within 90 days. Has not lost 10% of body wt in 6 months. No history of oncological symptoms or problems. Psych: No history of psychiatric symptoms or problems. Denies PTSD Musculoskeletal: see HPI, EDS with hypermobile joints/pain Skin: red and splotchy rash on back of legs and arms for a couple weeks that are itchy. She has been using benadryl cream on the area. Worse at night. Improving. Both legs - worse on right Objective PHYSICAL EXAM: Pulse 76[patient counted[ Ht 5' 7[patient reported[ (1.70m) Wt 250 lb (113.4kg) LMP 03/28/2024 BMI 39.15 kg/(m^2). VIDEO EXAM: (if completed, exam performed via video enabled technology) GENERAL: alert and appropriate, in no distress, well-hydrated, well nourished, and happy, smiling, interactive HEAD: normocephalic, no abnormality or lesion noted EYES: no injection NOSE: external nose normal without rhinorrhea NECK: full ROM RESPIRATORY: breathing non-labored and no grunting/flaring/retractions CHEST: equal chest rise with normal respiratory effort HEART: Patient confirmed radial pulse and counted aloud with regular rhythm. HR 76 BPM. No cyanosis ABDOMEN: soft and non-tender NEUROLOGIC: no cerebral deficits noted Diagnostic tests reviewed for today's visit: Lab Value Units Date High Low HB No results within date range. HCT No results within date range. WBC No results within date range. PLT No results within date range. NA No results within date range. K No results within date range. GLUC No results within date range. BUN No results within date range. CREAT No results within date range. PTSEC No results within date range. INR No results within date range. APTT No results within date range. ALT No results within date range. AST No results within date range. TBILI No results within date range. TSH No results within date range. PLAN: This patient is optimally prepared for surgery pending evaluation of rash. CONSULTS: Patient does not require consults for optimization at this time. The Following Tests/Procedures Have Been Initiated: Labs not indicated per PACC protocol, EKG not indicated per [facility] protocol Planned Anesthetic: Per anesthesia choice Instructions Given to Patient: Patient given verbal instructions and voices comprehension and compliance. Copy sent electronically via My Chart, email, or mobile device. This is a virtual visit. It required patient-provider interaction for the medical decision making as documented above. SIGNATURE: Jamey White PA-C PATIENT NAME: Rere Knutson DATE: 04/11/2024 TIME: 3:00 PM PAGER/CONTACT #: [facility] 04-11-2024 History and physical note PREANESTHESIA CONSULT CLINIC TELEHEALTH VISIT Patient has been identified by name and date of : Yes This is a virtual visit using [employer] Zoom Video Visit. It require patient-provider interaction for the medical decision making as documented below. Reason for contact: PACC visit Accompanied by: Self Scheduled Surgery: Procedure(s) (LRB): ARTHROSCOPY KNEE REMOVAL OF LOOSE OR FOREIGN BODY BILATERAL (Left) I have communicated my name and active licensure. The patient's identity and physical location were verified at the time of this visit. Either the patient or their legal unit support representative has been informed of the risks and benefits of -- and alternatives to -- treatment through a remote evaluation and consents to proceed with the evaluation remotely. ASSESSMENT: 1. Preop examination Scheduled for above procedure 2. Obesity, Class II, BMI 35-39.9 BMI 39 3. Hypothyroidism, unspecified type On CARD MAKER thyroid. Patient reports asymptomatic and feeling well on medication. Subjectively stable 4. GERD Every couple days in the past. Last symptoms a couple weeks ago. Currently diet controlled. Did not take prescription that was offered. 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 6. Rash Patient reports red and splotchy rash on back of legs and arms for a couple weeks that are itchy. She has been using benadryl cream on the area and states it tends to be worse at night. Improving over time. She reports it is present on both legs, but is worse on the right. I am unable to see the rash well through virtual visit. Since the rash includes the site of surgery, encouraged follow-up with PCP preop. Will send message to surgeon. Patient will keep me updated through [employer] METS: Walk a block or two on level ground (2.75 METs) Climb a flight of stairs or walk up a hill (5.50 METs) Participate in moderate recreational activities, such as golf, bowling, dancing, doubles tennis, or throwing a baseball or football (6.00 METs) Patient denies any chest pain or undue shortness of breath with the above physical activity. Rides bicycle, plays volleyball or pickleball occasionally ANESTHESIA FINDINGS: Intubation History: No history of difficult intubation Significant Anesthesia Considerations: Patient reports local anesthesia does not see to work well for her and she can feel what they're doing Airway Exam: General: Obese - BMI 39 Mallampati Score is CLASS II ULBT: Class II - Lower incisors can bite the upper lip below the lynne line Neck: Normal appearance and function Mouth: Normal tongue size and Mouth opening greater than 2 finger breaths Dentition: Intact Airway History: No abnormal airway history STOP BANG Score: Criteria: Tired BMI > 35 Score = 2 Subjective CHIEF COMPLAINT: Patient presents with: Pre-Op Visit HPI: This is a 29 year old female who presents with history of left ACL surgery approximately 7 years ago. Patient reports constant pain that is 5-8/10 with sharp and stabbing quality. She was diagnosed with chronic pain in his left knee and elects to proceed with above procedure ACTIVE PROBLEM LIST Hypothyroidism Obesity, Class II, Bmi 35-39.9 Eds (Donte-Danlos Syndrome) Gerd (Gastroesophageal Reflux Disease) PAST MEDICAL HISTORY No date: EDS (Donte-Danlos syndrome) No date: GERD (gastroesophageal reflux disease) No date: Hypothyroidism No date: Obesity, Class II, BMI 35-39.9 PAST SURGICAL HISTORY 2017: PAST SURGICAL HISTORY OF; Left Comment: knee ACL No date: PAST SURGICAL HISTORY OF; Left Comment: breast lumpectomy No date: PAST SURGICAL HISTORY OF; Right Comment: breast lumpectomy FAMILY HISTORY Problem Relation Age of Onset No Known Problems Mother Hypertension Father Anesthesia Problems No Family History Social History Tobacco Use Smoking status: Never Smokeless tobacco: Never Vaping Use Vaping status: Never Used Substance Use Topics Alcohol use: Never Drug use: Never ALLERGIES No Known Allergies MEDICATIONS: Current Outpatient Medications Medication Sig CARD MAKER THYROID 120 mg tablet Take 120 mg by mouth once daily. thyroid (CARD MAKER THYROID) 15 mg tablet Take 15 mg by mouth once daily. Total 135 mg daily No current facility-administered medications for this visit. COVID-19 Immunization Status Overdue - Covid-19 Vaccine ( season) Never done No completion, postpone, frequency change, or communication history exists for this topic. Had COVID-19 2019 and 2021. Denies complications or hospitalization. REVIEW OF SYSTEMS: Pain Assessment: General: No weight loss, malaise or fevers. Neuro: No history of TIA's, stroke, SPORTS WRITER tumor, impaired sensorium, hemiplegia, paraplegia or quadraplegia. No neurological symptoms or problems. Respiratory: No history of current cough or dyspnea, or pneumonia in the past 6 weeks. No history of respiratory/pulmonary symptoms or problems. Cardiovascular: No history of HTN requiring medication, no history of angina, CHF, IN, cardiac surgery or stents. Denies rest pain, gangrene or revascularization/amputation for PVD. No history of cardiovascular symptoms or problems. GI: Positive for GERD, Negative for Nausea, Vomiting, Abdominal pain, Hepatitis, Pancreatitis : No history of dysuria, frequency or incontinence,, stones or chronic kidney disease DEVOPS CONSULTANT: Negative for abnormal vaginal bleeding, abnormal vaginal discharge. : Denies, Patient's last menstrual period was 03/28/2024 (approximate). Endocrine: Hypothyroidism Denies DM/symptoms Denies oral steroids in the last 30 days Hematology: No history of bleeding or clotting disorder. Pt is not taking anti-coagulation or platelet medications. No history of hematological symptoms or problems. Oncology: No history of CA metastasis, chemo within 30 days, or radiotherapy within 90 days. Has not lost 10% of body wt in 6 months. No history of oncological symptoms or problems. Psych: No history of psychiatric symptoms or problems. Denies PTSD Musculoskeletal: see HPI, EDS with hypermobile joints/pain Skin: red and splotchy rash on back of legs and arms for a couple weeks that are itchy. She has been using benadryl cream on the area. Worse at night. Improving. Both legs - worse on right Objective PHYSICAL EXAM: Pulse 76[patient counted[ Ht 5' 7[patient reported[ (1.70m) Wt 250 lb (113.4kg) LMP 03/28/2024 BMI 39.15 kg/(m^2). VIDEO EXAM: (if completed, exam performed via video enabled technology) GENERAL: alert and appropriate, in no distress, well-hydrated, well nourished, and happy, smiling, interactive HEAD: normocephalic, no abnormality or lesion noted EYES: no injection NOSE: external nose normal without rhinorrhea NECK: full ROM RESPIRATORY: breathing non-labored and no grunting/flaring/retractions CHEST: equal chest rise with normal respiratory effort HEART: Patient confirmed radial pulse and counted aloud with regular rhythm. HR 76 BPM. No cyanosis ABDOMEN: soft and non-tender NEUROLOGIC: no cerebral deficits noted Diagnostic tests reviewed for today's visit: Lab Value Units Date High Low HB No results within date range. HCT No results within date range. WBC No results within date range. PLT No results within date range. NA No results within date range. K No results within date range. GLUC No results within date range. BUN No results within date range. CREAT No results within date range. PTSEC No results within date range. INR No results within date range. APTT No results within date range. ALT No results within date range. AST No results within date range. TBILI No results within date range. TSH No results within date range. PLAN: This patient is optimally prepared for surgery pending evaluation of rash. CONSULTS: Patient does not require consults for optimization at this time. The Following Tests/Procedures Have Been Initiated: Labs not indicated per [facility] protocol, EKG not indicated per [facility] protocol Planned Anesthetic: Per anesthesia choice Instructions Given to Patient: Patient given verbal instructions and voices comprehension and compliance. Copy sent electronically via My Chart, email, or mobile device. This is a virtual visit. It required patient-provider interaction for the medical decision making as documented above. SIGNATURE: Jamey White PA-C PATIENT NAME: Rere Knutson DATE: 04/11/2024 TIME: 3:00 PM PAGER/CONTACT #: documented in this encounter [facility] 04-10-2024 Note HNO ID: [id number] Author: PAULA FITZGERALD PA-C Service: ? Author Type: Physician Maintenance Helper Type: Progress Notes Filed: 04/10/2024 11:10 Note Text: I have personally reviewed Elsa Pagan ATC note. I agree with the findings as documented. Other additions or changes: Alternative CPT codes 04859 and 12629 - if insurance requires change Paula Fitzgerald PA-C April 10, 2024 11:03 AM [facility] 04-10-2024 History of Presen t illness Narrative I have personally reviewed Elsa Pagan ATC note. I agree with the findings as documented. Other additions or changes: Alternative CPT codes 16530 and 09202 - if insurance requires change Paula Fitzgerald PA-C April 10, 2024 11:03 AM Spoke with patient on the phone regarding scheduling surgery for their left knee with Dr. Vaca. Procedure: Left knee diagnostic arthroscopy - removal of hardware Date: 04-18-24 Insurance: [place] [employer] XR: 01-24-24 MRI: 03-13-24 - prominent tibial screw Brace fitting: No Crutches/ Walker: Need Training: No Need Crutches: No P[facility]: [facility] Medications: No prescriptions on file. Allergies: ALLERGIES Not on File Current medical concerns: Any history of the following: Are you unable to take NSAID's: No. Breathing problems: asthma, sleep apnea or other lung issues No. Decreased kidney function or other kidney disease: No. Liver disease: No. Heart issues - prior heart attack, stents/surgery, valve issues, implanted cardiac device (ICD, defibrillator, pacemaker): No. Diabetic: No. Do you take insulin or other injections for diabetes Currently on any antibiotics - No. Blood thinning medications (coumadin, Xarelto, Plavix, Eliquis etc) other than aspirin : No. History of blood clot, DVT or PE (lungs, legs, arms) if yes when and where : No. Blood clotting disorder or FACTOR deficiency: No. Thyroid medication: No. Skin infection (staph, MRSA): No. History of stroke/ seizure or unexplained loss of consciousness: No. Neurological conditions like Parkinson's or Multiple Sclerosis (MS): No. Pain Management, have a opioid contract or currently taking prescription pain medication: No. Implanted devices ( pain pump, deep brain stimulator or spinal cord stimulator): No. Family history of life threatening reaction to anesthesia (NOT nausea or slow wake up): No. Pre op instructions sent via [employer]. JORY Francois documented in this encounter [facility] 04-04-2024 Note HNO ID: [id number] Author: ELSA PAGAN AT Service: ? Author Type: Transcribing Operators Supervisor Type: Progress Notes Filed: 04/10/2024 11:10 Note Text: Spoke with patient on the phone regarding scheduling surgery for their left knee with Dr. Vaca. Procedure: Left knee diagnostic arthroscopy - removal of hardware Date: 04-18-24 Insurance: [place] Medicaid XR: 01-24-24 MRI: 03-13-24 - tibial screw Brace fitting: No Crutches/ Walker: Need Training: No Need Crutches: No [facility]: [facility] Medications: No prescriptions on file. Allergies: ALLERGIES Not on File Current medical concerns: Any history of the following: Are you unable to take NSAID's: No. Breathing problems: asthma, sleep apnea or other lung issues No. Decreased kidney function or other kidney disease: No. Liver disease: No. Heart issues - prior heart attack, stents/surgery, valve issues, implanted cardiac device (ICD, defibrillator, pacemaker): No. Diabetic: No. Do you take insulin or other injections for diabetes Currently on any antibiotics - No. Blood thinning medications (coumadin, Xarelto, Plavix, Eliquis etc) other than aspirin : No. History of blood clot, DVT or PE (lungs, legs, arms) if yes when and where : No. Blood clotting disorder or FACTOR deficiency: No. Thyroid medication: No. Skin infection (staph, MRSA): No. History of stroke/ seizure or unexplained loss of consciousness: No. Neurological conditions like Parkinson's or Multiple Sclerosis (MS): No. Pain Management, have a opioid contract or currently taking prescription pain medication: No. Implanted devices ( pain pump, deep brain stimulator or spinal cord stimulator): No. Family history of life threatening reaction to anesthesia (NOT nausea or slow wake up): No. Pre op instructions sent via [employer]. Elsa Pagan, AT [facility] 04-03-2024 Telephone encounter Note Rere is calling Dionicio Vaca MD today with concern regarding Patient Question. Pt states someone was supposed to call her to schedule surgery with Dr. Vaca and has not heard anything yet. Patient has been identified by name and birthdate. Duration of symptoms: N/A Person calling: self Call patient at: at home [phone] (home) [phone] (cell) Fiona Burton [facility] 04-03-2024 Miscellaneous Notes Rere is calling Dionicio Vaca MD today with concern regarding Patient Question. Pt states someone was supposed to call her to schedule surgery with Dr. Vaca and has not heard anything yet. Patient has been identified by name and birthdate. Duration of symptoms: N/A Person calling: self Call patient at: at home [phone] (home) [phone] (cell) Fiona Burton documented in this encounter [facility] 03-27-2024 Note HNO ID: [id number] Author: DIONICIO VACA MD Service: ? Author Type: Physician Type: Progress Notes Filed: 03/27/2024 12:19 Note Text: I have reviewed the history and physical obtained by my resident or fellow. HPI explored in detail with the patient. Pt was seen by me and rg findings were confirmed. I agree with the findings as documented. I personally participated the patient's assessment and treatment recommendations. Dionicio Vaca MD [facility] 03-27-2024 History of Presen t illness Narrative I have reviewed the history and physical obtained by my resident or fellow. HPI explored in detail with the patient. Pt was seen by me and rg findings were confirmed. I agree with the findings as documented. I personally participated the patient's assessment and treatment recommendations. Dionicio Vaca MD Images from the original note were not included. DEPARTMENT OF ORTHOPAEDICS Consultation as a request of Self. HISTORY OF PRESENT ILLNESS: This is a pleasant 29 year old female, who presents today with a chief complaint of left knee pain. Patient with history of left ACL injury require reconstruction using allograft approximately 7 years ago in [place]. Patient is here for MRI left knee follow-up. She states her pain has not improved since her last visit on 01/24/2024 and has remained the same. Denies any interim trauma. Interim Injury/ Trauma: Denies PAIN EVALUATION 03/21/2024 1431 Pain Level: 7 Pain Location: Knee-Left Description: Aching;Sharp;Shooting;Sore;Stabb ing/Not Incision;Stiffness;Tenderness Frequency: Continuous REVIEW OF SYSTEMS: GENERAL:No weight loss, malaise or fevers RESPIRATORY: Negative for cough, hemoptysis, wheezing, COPD, dyspnea or shortness of breath CARDIOVASCULAR: Negative for chest pain, leg swelling, hypertension, CHF or palpitations GASTROINTESTINAL: No nausea, vomiting, or diarrhea} MUSCULOSKELETAL: Negative for joint pain or swelling, back pain or muscle pain NEUROLOGIC:Negative for focal numbness or weakness, headaches and dizziness or syncope. SKIN:Negative for lesions, rash, and itching HEMATOLOGIC/LYMPHATIC/IMMUNOLOGI C:Negative for prolonged bleeding, bruising easily or swollen nodes ENDOCRINE: Negative for cold or heat intolerance, polyuria, polydipsia and goiter PHYSICAL EXAM: There were no vitals taken for this visit. General: Appears stated age, well built, in no apparent distress. Psychiatric: Mood and affect appropriate. Alert and oriented x 3 without evidence of abnormal respiratory effort. Musculoskeletal Exam: Gait and Station WNL. Contralateral knee comparison examination is within normal limits. Inspection Right Left Incision No evidence of surgical incisions. Positive: Well healed anteromedial incision. Atrophy No evidence of muscular atrophy. No evidence of muscular atrophy. Alignment normal normal Range of Motion Knee-Flex 0-0-120 degrees 0-0-120 degrees Patella Mobility Normal patellar mobility Normal patellar mobility Superior 2 quadrant 2 quadrant Inferior 2 quadrant 2 quadrant Medial 2 quadrant 2 quadrant Lateral 2 quadrant 2 quadrant Effusion No effusion No effusion Tenderness none Medial tibial directly over prior incision, near area of screw prominence on MRI Crepitance Negative palpable/audible patellofemoral, medial or lateral compartment crepitance Negative palpable/audible patellofemoral, medial or lateral compartment crepitance Meniscus Negative medial and lateral Shabnam's test Negative medial and lateral Shabnam's test Valgus 0 degrees negative negative Valgus 30 degress negative Positive for very mildly increased laxity Varus 0 degrees negative negative Varus 30 degrees negative negative Lachmans negative negative Posterior drawer negative negative IMAGING MRI right knee obtained within 30 days showing intact ACL with prominent tibial screw noted. PROCEDURE: Not applicable IMPRESSION: 1. left knee painful hardware. Given imaging and physical exam, she is ligamentously stable. Pain is across noted tibial tunnel screw site. Given this, patient would likely benefit from a removal of hardware and diagnostic arthroscopy. Risks and benefits of surgery were discussed on today's visit. All questions answered. Patient verbalized understand agrees plan. PLAN: 1. Medication: None. 2. Test(s)/Imaging/Referral(s): None. 3. Intervention: Following a disussion of nonoperative and operative treatment options, the risks and benefits of both, expected outcome and rehabilitation the patient elected for surgical intervention. Left knee removal of hardware. He will be scheduled following necessary clearance at the patient's convenience. . 4. Follow-up: For surgery. Aníbal Crow MD Sports Medicine/Orthopeaedic Surgery documented in this encounter [facility] 03-27-2024 Note HNO ID: [id number] Author: DIONICIO VACA MD Service: ? Author Type: Resident Type: Progress Notes Filed: 03/27/2024 12:19 Note Text: DEPARTMENT OF ORTHOPAEDICS Consultation as a request of Self. HISTORY OF PRESENT ILLNESS: This is a pleasant 29 year old female, who presents today with a chief complaint of left knee pain. Patient with history of left ACL injury require reconstruction using allograft approximately 7 years ago in [place]. Patient is here for MRI left knee follow-up. She states her pain has not improved since her last visit on 01/24/2024 and has remained the same. Denies any interim trauma. Interim Injury/ Trauma: Denies PAIN EVALUATION 03/21/2024 1431 Pain Level: 7 Pain Location: Knee-Left Description: Aching;Sharp;Shooting;Sore;Stabb ing/Not Incision;Stiffness;Tenderness Frequency: Continuous REVIEW OF SYSTEMS: GENERAL:No weight loss, malaise or fevers RESPIRATORY: Negative for cough, hemoptysis, wheezing, COPD, dyspnea or shortness of breath CARDIOVASCULAR: Negative for chest pain, leg swelling, hypertension, CHF or palpitations GASTROINTESTINAL: No nausea, vomiting, or diarrhea} MUSCULOSKELETAL: Negative for joint pain or swelling, back pain or muscle pain NEUROLOGIC:Negative for focal numbness or weakness, headaches and dizziness or syncope. SKIN:Negative for lesions, rash, and itching HEMATOLOGIC/LYMPHATIC/IMMUNOLOGI C:Negative for prolonged bleeding, bruising easily or swollen nodes ENDOCRINE: Negative for cold or heat intolerance, polyuria, polydipsia and goiter PHYSICAL EXAM: There were no vitals taken for this visit. General: Appears stated age, well built, in no apparent distress. Psychiatric: Mood and affect appropriate. Alert and oriented x 3 without evidence of abnormal respiratory effort. Musculoskeletal Exam: Gait and Station WNL. Contralateral knee comparison examination is within normal limits. Inspection Right Left Incision No evidence of surgical incisions. Positive: Well healed anteromedial incision. Atrophy No evidence of muscular atrophy. No evidence of muscular atrophy. Alignment normal normal Range of Motion Knee-Flex 0-0-120 degrees 0-0-120 degrees Patella Mobility Normal patellar mobility Normal patellar mobility Superior 2 quadrant 2 quadrant Inferior 2 quadrant 2 quadrant Medial 2 quadrant 2 quadrant Lateral 2 quadrant 2 quadrant Effusion No effusion No effusion Tenderness none Medial tibial directly over prior incision, near area of screw prominence on MRI Crepitance Negative palpable/audible patellofemoral, medial or lateral compartment crepitance Negative palpable/audible patellofemoral, medial or lateral compartment crepitance Meniscus Negative medial and lateral Shabnam's test Negative medial and lateral Shabnam's test Valgus 0 degrees negative negative Valgus 30 degress negative Positive for very mildly increased laxity Varus 0 degrees negative negative Varus 30 degrees negative negative Lachmans negative negative Posterior drawer negative negative IMAGING MRI right knee obtained within 30 days showing intact ACL with prominent tibial screw noted. PROCEDURE: Not applicable IMPRESSION: 1. left knee painful hardware. Given imaging and physical exam, she is ligamentously stable. Pain is across noted tibial tunnel screw site. Given this, patient would likely benefit from a removal of hardware and diagnostic arthroscopy. Risks and benefits of surgery were discussed on today's visit. All questions answered. Patient verbalized understand agrees plan. PLAN: 1. Medication: None. 2. Test(s)/Imaging/Referral(s): None. 3. Intervention: Following a disussion of nonoperative and operative treatment options, the risks and benefits of both, expected outcome and rehabilitation the patient elected for surgical intervention. Left knee removal of hardware. He will be scheduled following necessary clearance at the patient's convenience. . 4. Follow-up: For surgery. Aníbal Crow MD Sports Medicine/Orthopeaedic Surgery [facility] 03-13-2024 History of Presen t illness Narrative Radiology Service Progress Note PATIENT NAME: Rere Knutson DATE OF SERVICE: March 13, 2024 TIME: 2:59 PM PATIENT IDENTITY VERIFICATION COMPLETED USING TWO (2) IDENTIFIERS: Name and Date of confirmed by patient verbally. FALL SCREENING: Has the patient had 2 falls in the last year or 1 fall with injury or currently using an Ambulatory Assistive Device (Walker, Cane, Wheelchair, Crutches, etc.)? No PATIENT GENDER DATA: Female. status: : No status: NO. PATIENT RELEVANT IMPLANT DATA REVIEWED: Yes PATIENT PRESENTS WITH AN IMPLANTABLE OR ATTACHED RN CARE MANAGER: No RADIOLOGY DEPARTMENT: MR; Exam(s) Completed: Lower MSK: Knee, left PERIPHERAL IV DATA: Not applicable SIGNED BY: RT Eunice(Bertin) March 13, 2024 2:59 PM documented in this encounter [facility] 03-13-2024 Note HNO ID: [id number] Author: HUMBLE JEWELL RT(R) Service: Radiology Author Type: Technologist Type: Progress Notes Filed: 03/13/2024 15:11 Note Text: Radiology Service Progress Note PATIENT NAME: Rere Knutson DATE OF SERVICE: March 13, 2024 TIME: 2:59 PM PATIENT IDENTITY VERIFICATION COMPLETED USING TWO (2) IDENTIFIERS: Name and Date of confirmed by patient verbally. FALL SCREENING: Has the patient had 2 falls in the last year or 1 fall with injury or currently using an Ambulatory Assistive Device (Walker, Cane, Wheelchair, Crutches, etc.)? No PATIENT GENDER DATA: Female. status: : No status: NO. PATIENT RELEVANT IMPLANT DATA REVIEWED: Yes PATIENT PRESENTS WITH AN IMPLANTABLE OR ATTACHED RN CARE MANAGER: No RADIOLOGY DEPARTMENT: MR; Exam(s) Completed: Lower MSK: Knee, left PERIPHERAL IV DATA: Not applicable SIGNED BY: RT Enuice(R) March 13, 2024 2:59 PM [facility] 01-24-2024 Note HNO ID: [id number] Author: DIONICIO VACA MD Service: ? Author Type: Physician Type: Progress Notes Filed: 01/24/2024 08:44 Note Text: I have reviewed the history and physical obtained by my resident or fellow. HPI explored in detail with the patient. Pt was seen by me and rg findings were confirmed. I agree with the findings as documented. I personally participated the patient's assessment and treatment recommendations. Dionicio Vaca MD [facility] 01-24-2024 History of Presen t illness Narrative I have reviewed the history and physical obtained by my resident or fellow. HPI explored in detail with the patient. Pt was seen by me and rg findings were confirmed. I agree with the findings as documented. I personally participated the patient's assessment and treatment recommendations. Dionicio Vaca MD Images from the original note were not included. DEPARTMENT OF ORTHOPAEDICS Consultation as a request of self-referred. HISTORY OF PRESENT ILLNESS: This is a pleasant 29 year old female, who presents today with a chief complaint of left knee pain. Patient has a history of left ACL injury requiring reconstruction using allograft about 7 years ago. She sustained the injury while playing spike ball, noncontact injury. She recovered well after surgery and felt that she had a stable knee with minimal residual pain. Was able to return to all activities. However, about 2 years ago she sustained a second, separate injury while sledding. At that time, she was told that she had an MCL injury as well as some other injuries that she cannot exactly recall. At that time, she sought a few different opinions which varied from trial of nonoperative management versus immediate surgical intervention. Ultimately, she underwent nonoperative management with substantial improvement of her symptoms. However, she now continues to have some pain over the anterior and medial aspect of her knee. She feels pain regularly throughout the day with any activity. It worsens with more strenuous sports such as volleyball or spike ball. She has tried physical therapy, anti-inflammatories without significant relief of symptoms. Injury/ Trauma: Reports sledding injury Pain location: anterior Duration of pain/ symptoms: 2 years Frequency: intermittent Intensity: moderate Quality: aching She Denies nocturnal pain. She denies proximal radiation.. She denies numbness, tingling, or electric shocks. She reports clicking. She Denies swelling and/or warmth. 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 No past surgical history on file. No current outpatient medications on file. No current facility-administered medications for this visit. ALLERGIES Not on File No family history on file. REVIEW OF SYSTEMS: GENERAL: No weight loss, malaise or fevers HEENT: Negative for frequent or significant headaches, No changes in hearing or vision, no nose bleeds or other nasal problems NECK: Negative for lumps, goiter, pain and significant neck swelling RESPIRATORY: Negative for cough, hemoptysis, wheezing, COPD, dyspnea or shortness of breath CARDIOVASCULAR: Negative for chest pain, leg swelling, hypertension, CHF or palpitations GI: No nausea, vomiting, or diarrhea : No history of dysuria, frequency or incontinence DEVOPS CONSULTANT: Negative for abnormal vaginal bleeding, abnormal vaginal discharge MUSCULOSKELETAL: Negative for joint pain or swelling, back pain or muscle pain SKIN: Negative for lesions, rash, and itching HEMATOLOGY/LYMPHOLOGY: Negative for prolonged bleeding, bruising easily or swollen nodes ENDOCRINE: Negative for cold or heat intolerance, polyuria, polydipsia and goiter RADIOGRAPHS: left AP, lateral, two obliques dated today revealed no acute processes, fractures, or dislocations. Osseous and soft tissue structures within normal limits. There is no significant knee joint arthritis. OTHER STUDIES: left knee MRI dated 2 years ago from outside our system reveals intact ACL graft, intact menisci, somewhat attenuated MCL with surrounding edema at its distal insertion. There is also some prominence of the tibial screw from prior ACL extraction with surrounding edema. In addition, there is some nonspecific signal intra-articular that extends extra-articular that could represent loose bodies or scar tissue. PHYSICAL EXAM: There were no vitals taken for this visit. General: Appears stated age, well built, in no apparent distress. Psychiatric: Mood and affect appropriate. Alert and oriented x 3 without evidence of abnormal respiratory effort. Musculoskeletal Exam: Gait and Station WNL. Contralateral knee comparison examination is within normal limits. Inspection Right Left Incision No evidence of surgical incisions. Positive: Well healed anteromedial incision. Atrophy No evidence of muscular atrophy. No evidence of muscular atrophy. Alignment normal normal Range of Motion Knee-Flex 0-0-120 degrees 0-0-120 degrees Patella Mobility Normal patellar mobility Normal patellar mobility Superior 2 quadrant 2 quadrant Inferior 2 quadrant 2 quadrant Medial 2 quadrant 2 quadrant Lateral 2 quadrant 2 quadrant Effusion No effusion No effusion Tenderness none Medial tibial directly over prior incision, near area of screw prominence on MRI Crepitance Negative palpable/audible patellofemoral, medial or lateral compartment crepitance Negative palpable/audible patellofemoral, medial or lateral compartment crepitance Meniscus Negative medial and lateral Shabnam's test Negative medial and lateral Shabnam's test Valgus 0 degrees negative negative Valgus 30 degress negative Positive for very mildly increased laxity Varus 0 degrees negative negative Varus 30 degrees negative negative Lachmans negative negative Posterior drawer negative negative PROCEDURE: Not applicable IMPRESSION: This is a 29-year-old female with history of left ACL reconstruction and MCL injury who now presents with persistent pain in the area of prominent screw. We discussed her diagnosis in detail. Her knee feels quite stable. It does seem that her ACL graft is intact and her MCL healed nicely with nonoperative management. She does have some tenderness directly over the area of the prominent screw from her prior tibial tunnel fixation. This seems to be a large component of her pain which is her primary chief complaint. However, she also has some nonspecific signal within her knee that seems to extend extra-articular on her MRI from 2 years ago. It is that these may be the cause of some of her mechanical symptoms of clicking. Thus, we feel it would be prudent to obtain a repeat MRI to further characterize these lesions. PLAN: 1. Medication: Continue current medications. 2. Test(s)/Imaging/Referral(s): MRI Justification for advanced imaging based on the following: failed conservative treatment, an adequate course of formal physical therapy without relief, an adequate course of an in home rehabilitation program without relief, activity modification, limitations of work and/or recreational activities, duration of symptoms without relief, and to rule out internal derrangement. 3. Intervention: None. 4. Follow-up: Return after MRI to discuss results and next steps in management. Kyree Dias MD Sports Medicine/Orthopaedic Surgery documented in this encounter [facility] 01-24-2024 Note HNO ID: [id number] Author: KYREE DIAS MD Service: ? Author Type: Fellow Type: Progress Notes Filed: 01/24/2024 08:44 Note Text: DEPARTMENT OF ORTHOPAEDICS Consultation as a request of self-referred. HISTORY OF PRESENT ILLNESS: This is a pleasant 29 year old female, who presents today with a chief complaint of left knee pain. Patient has a history of left ACL injury requiring reconstruction using allograft about 7 years ago. She sustained the injury while playing spike ball, noncontact injury. She recovered well after surgery and felt that she had a stable knee with minimal residual pain. Was able to return to all activities. However, about 2 years ago she sustained a second, separate injury while sledding. At that time, she was told that she had an MCL injury as well as some other injuries that she cannot exactly recall. At that time, she sought a few different opinions which varied from trial of nonoperative management versus immediate surgical intervention. Ultimately, she underwent nonoperative management with substantial improvement of her symptoms. However, she now continues to have some pain over the anterior and medial aspect of her knee. She feels pain regularly throughout the day with any activity. It worsens with more strenuous sports such as volleyball or spike ball. She has tried physical therapy, anti-inflammatories without significant relief of symptoms. Injury/ Trauma: Reports sledding injury Pain location: anterior Duration of pain/ symptoms: 2 years Frequency: intermittent Intensity: moderate Quality: aching She Denies nocturnal pain. She denies proximal radiation.. She denies numbness, tingling, or electric shocks. She reports clicking. She Denies swelling and/or warmth. 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 No past surgical history on file. No current outpatient medications on file. No current facility-administered medications for this visit. ALLERGIES Not on File No family history on file. REVIEW OF SYSTEMS: GENERAL: No weight loss, malaise or fevers HEENT: Negative for frequent or significant headaches, No changes in hearing or vision, no nose bleeds or other nasal problems NECK: Negative for lumps, goiter, pain and significant neck swelling RESPIRATORY: Negative for cough, hemoptysis, wheezing, COPD, dyspnea or shortness of breath CARDIOVASCULAR: Negative for chest pain, leg swelling, hypertension, CHF or palpitations GI: No nausea, vomiting, or diarrhea : No history of dysuria, frequency or incontinence DEVOPS CONSULTANT: Negative for abnormal vaginal bleeding, abnormal vaginal discharge MUSCULOSKELETAL: Negative for joint pain or swelling, back pain or muscle pain SKIN: Negative for lesions, rash, and itching HEMATOLOGY/LYMPHOLOGY: Negative for prolonged bleeding, bruising easily or swollen nodes ENDOCRINE: Negative for cold or heat intolerance, polyuria, polydipsia and goiter RADIOGRAPHS: left AP, lateral, two obliques dated today revealed no acute processes, fractures, or dislocations. Osseous and soft tissue structures within normal limits. There is no significant knee joint arthritis. OTHER STUDIES: left knee MRI dated 2 years ago from outside our system reveals intact ACL graft, intact menisci, somewhat attenuated MCL with surrounding edema at its distal insertion. There is also some prominence of the tibial screw from prior ACL extraction with surrounding edema. In addition, there is some nonspecific signal intra-articular that extends extra-articular that could represent loose bodies or scar tissue. PHYSICAL EXAM: There were no vitals taken for this visit. General: Appears stated age, well built, in no apparent distress. Psychiatric: Mood and affect appropriate. Alert and oriented x 3 without evidence of abnormal respiratory effort. Musculoskeletal Exam: Gait and Station WNL. Contralateral knee comparison examination is within normal limits. Inspection Right Left Incision No evidence of surgical incisions. Positive: Well healed anteromedial incision. Atrophy No evidence of muscular atrophy. No evidence of muscular atrophy. Alignment normal normal Range of Motion Knee-Flex 0-0-120 degrees 0-0-120 degrees Patella Mobility Normal patellar mobility Normal patellar mobility Superior 2 quadrant 2 quadrant Inferior 2 quadrant 2 quadrant Medial 2 quadrant 2 quadrant Lateral 2 quadrant 2 quadrant Effusion No effusion No effusion Tenderness none Medial tibial directly over prior incision, near area of screw prominence on MRI Crepitance Negative palpable/audible patellofemoral, medial or lateral compartment crepitanc (more content not included)... [facility] 01-24-2024 History of Presen t illness Narrative Radiology Service Progress Note PATIENT NAME: Rere Knutson DATE OF SERVICE: January 24, 2024 TIME: 7:50 AM PATIENT IDENTITY VERIFICATION COMPLETED USING TWO (2) IDENTIFIERS: Name and Date of confirmed by patient verbally. FALL SCREENING: Has the patient had 2 falls in the last year or 1 fall with injury or currently using an Ambulatory Assistive Device (Walker, Cane, Wheelchair, Crutches, etc.)? No PATIENT GENDER DATA: Female. status: : No status: NO. PATIENT RELEVANT IMPLANT DATA REVIEWED: Not Applicable PATIENT PRESENTS WITH AN IMPLANTABLE OR ATTACHED RN CARE MANAGER: No RADIOLOGY DEPARTMENT: General X-ray: Exam(s) Completed: Lower Extremity X-Ray(s): Knee, AP / Lat / Tunne / Merchant Left and Wt. Bearing PERIPHERAL IV DATA: Not applicable SIGNED BY: Josephine Washington January 24, 2024 7:50 AM documented in this encounter [facility] 01-24-2024 Note HNO ID: [id number] Author: SUBHA RUDOLPH Tech Service: ? Author Type: Buffing Wheel Former Machine Type: Progress Notes Filed: 01/24/2024 07:51 Note Text: Radiology Service Progress Note PATIENT NAME: Rere Knutson DATE OF SERVICE: January 24, 2024 TIME: 7:50 AM PATIENT IDENTITY VERIFICATION COMPLETED USING TWO (2) IDENTIFIERS: Name and Date of confirmed by patient verbally. FALL SCREENING: Has the patient had 2 falls in the last year or 1 fall with injury or currently using an Ambulatory Assistive Device (Walker, Cane, Wheelchair, Crutches, etc.)? No PATIENT GENDER DATA: Female. status: : No status: NO. PATIENT RELEVANT IMPLANT DATA REVIEWED: Not Applicable PATIENT PRESENTS WITH AN IMPLANTABLE OR ATTACHED RN CARE MANAGER: No RADIOLOGY DEPARTMENT: General X-ray: Exam(s) Completed: Lower Extremity X-Ray(s): Knee, AP / Lat / Tunne / Merchant Left and Wt. Bearing PERIPHERAL IV DATA: Not applicable SIGNED BY: Josephine Washington January 24, 2024 7:50 AM [facility] Evaluation note No assessment inform ation available [facility] Work Phone: Evaluation note Diagnosis Chronic pain of left knee- Primary Pain in joint, lower leg [facility] Diagnosis Chronic pain of left knee Pain in joint, lower leg [facility] Diagnosis Chronic pain of left knee- Primary Pain in joint, lower leg [facility] Diagnosis Chronic pain of left knee- Primary Pain in joint, lower leg Chronic pain of left knee Pain in joint, lower leg documented in this encounter [facility] note* Diagnosis Preop examination- Primary Preoperative examination, unspecified Obesity, Class II, BMI 35-39.9 Obesity, unspecified Hypothyroidism, unspecified type EDS (Donte-Danlos syndrome) Donte-Danlos syndrome Gastroesophageal reflux disease, unspecified whether esophagitis present Rash Rash and other nonspecific skin eruption Chronic pain of left knee Pain in joint, lower leg [facility] Diagnosis Pain Generalized pain Chronic pain of left knee Pain in joint, lower leg [facility]* Diagnosis Painful orthopaedic hardware (HCC)- Primary Other complications due to other internal orthopedic device, implant, and graft Painful orthopaedic hardware (HCC) Other complications due to other internal orthopedic device, implant, and graft Chronic pain of left knee Pain in joint, lower leg Acute postop pain NEC Chronic pain of left knee Pain in joint, lower leg [facility] pain of left knee Pain in joint, lower [facility] Chronic pain of left knee- Primary Pain in joint, lower leg [facility] Diagnosis Chronic pain of left knee- Primary Pain in joint, lower leg [facility] Acute [facility] ankle [facility] Diagnosis Chronic pain of left knee- Primary Pain in joint, lower leg [facility] Diagnosis Acute left ankle pain- Primary Chronic pain of right ankle Acute left ankle pain [facility] Diagnosis Chronic pain of left knee- Primary Pain in joint, lower leg [facility] Diagnosis Chronic pain of left knee- Primary Pain in joint, lower leg [facility] Diagnosis Chronic pain of left knee- Primary Pain in joint, lower leg [facility] Diagnosis Pes cavus of both feet- Primary Acute left ankle pain Chronic pain of right ankle Ankle instability, unspecified laterality [facility] Diagnosis Chronic pain of left knee- Primary Pain in joint, lower leg [facility] Diagnosis Chronic pain of left knee- Primary Pain in joint, lower leg [facility] Chronic pain of left knee- Primary Pain in joint, lower leg [facility] Location: None Selected [facility] Work Phone: Reason for referral (narrative)* Diagnostic Procedure Only (Routine) - Closed Specialty Diagnoses / Procedures Referred By Contac t Referred To Contact XR IMAGING Diagnoses Pain Procedures XR KNEE GENERAL 4V AP BOTH/PA BOTH/LAT/MERC LEFT RADIOLOGIC EXAM KNEE COMPLETE 4/MORE VIEWS Dionicio Vaca MD [address] [place] [address] [place] [address] Referral ID Status Reason Start Date Expiration Date V isits Requested Visits Authorized [id number] Closed Auto-Generate d Referral 01/22/2024 02/20/2025 1 1 [facility] Diagnostic Procedure Only (Routine) - Closed Specialty Diagnoses / Procedures Referred By Contac t Referred To Contact XR IMAGING Diagnoses Acute left ankle pain Procedures XR ANKLE GENERAL 3V AP/LAT/OBL LEFT RADEX ANKLE COMPLETE MINIMUM 3 VIEWS Paula Fitzgerald PA-C [address] [place] [id number] Xr Imaging [facility] Referral ID Status Reason Start Date Expiration Date V isits Requested Visits Authorized [id number] Closed Auto-Generate d Referral 05/07/2024 06/06/2025 1 1 [facility] Summary Purpose Family History No Family History Records Found Relationship Condition Age at Onset Recorded Date/T mariola mother Autoimmune disease Unknown Diabetes mellitus Unknown grandfather Parkinson's disease Unknown Seizure Unknown History of myocardial infarction Unknown grandmother Diabetes mellitus Unknown Cerebrovascular accident (CVA) Unknown Autoimmune disease Unknown Advance Directives No Advanced Directives Records FoundNo Advanced Directives Records FoundNo Advanced Directives Records FoundNo Advanced Directives Records FoundNo Advanced Directives Records FoundNo Advanced Directives Records FoundNo Advanced Directives Records Found Reason for Referral Specialty Diagnoses / Procedures Referred By Contac t Referred To Contact MR IMAGING Diagnoses Chronic pain of left knee Procedures MRI KNEE WO IVCON LEFT MRI ANY JT LOWER EXTREM W/O CONTRAST Dionicio Brooks MD [address] [place] [address] [place] [address] Referral ID Status Reason Start Date Expiration Date Visits Requested Visits Authorized [id number] Pending Review Auto-Generat ed Referral 01/24/2024 02/22/2025 1 1 Specialty Diagnoses / Procedures Referred By Contact Referred To Contact Physical Therapy / PHYSICAL THERAPY Diagnoses Chronic pain of left knee Procedures CONSULT TO PHYSICAL THERAPY PHYSICAL THERAPY EVALUATION HIGH COMPLEX 45 MINS Paula Fitzgerald PA-C [address] [place] [address] Samuel Velasquez, PT [address] [place] [address] Referral ID Status Reason Start Date Expiration Date Visits Requested Visits Authorized [id number] Authorized Auto-Generat ed Referral 08/07/2023 08/06/2024 30 30 Specialty Diagnoses / Procedures Referred By Contact Referred To Contact [facility] Diagnoses Acute left ankle pain Chronic pain of right ankle Procedures CONSULT TO PHYSICAL THERAPY PHYSICAL THERAPY EVALUATION HIGH COMPLEX 45 MINS Paula Fitzgerald PA-C [address] [id number] [facility] [place] [address] [place] [address] Referral ID Status Reason Start Date Expiration Date Visits Requested Visits Authorized [id number] Authorized Auto-Generat ed Referral 05/07/2024 08/06/2024 8 8 Specialty Diagnoses / Procedures Referred By Contac t Referred To Contact XR IMAGING Diagnoses Chronic pain of right ankle Procedures XR ANKLE GENERAL 3V AP/LAT/OBL RIGHT RADEX ANKLE COMPLETE MINIMUM 3 VIEWS Paula Fitzgerald PA-C [address] [place] [address] [facility] [place] [address] Referral ID Status Reason Start Date Expiration Date Visits Requested Visits Authorized [id number] New Request Auto-Generat ed Referral 05/07/2024 06/06/2025 1 1 Specialty Diagnoses / Procedures Referred By Contac t Referred To Contact Orthopedics Diagnoses Acute left ankle pain Chronic pain of right ankle Procedures CONSULT PANEL TO ORTHOPAEDICS OFFICE/OUTPATIENT [facility] 60 MINUTES Paula Fitzgerald PA-C [address] [place] [address] Referral ID Status Reason Start Date Expiration Date Visits Requested Visits Authorized [id number] Authorized PCP Requested Referral 05/07/2024 05/07/2025 1 1 Specialty Diagnoses / Procedures Referred By Contac t Referred To Contact XR IMAGING Diagnoses Acute left ankle pain Procedures XR ANKLE GENERAL 3V AP/LAT/OBL LEFT RADEX ANKLE COMPLETE MINIMUM 3 VIEWS Paula Fitzgerald, RAMEZ [address] [place] [address] [place] [address] Referral ID Status Reason Start Date Expiration Date V isits Requested Visits Authorized [id number] Closed Auto-Generate d Referral 05/07/2024 06/06/2025 1 1 Specialty Diagnoses / Procedures Referred By Contac t Referred To Contact [facility] Diagnoses Pes cavus of both feet Ankle instability, unspecified laterality Procedures CONSULT TO PHYSICAL THERAPY PHYSICAL THERAPY EVALUATION HIGH COMPLEX 45 MINS Maggie Huitron [address] [place] [address] [facility] [place] [address] [place] [address] Referral ID Status Reason Start Date Expiration Date Visits Requested Visits Authorized [id number] Pending Review Auto-Generat ed Referral 06/04/2025 1 1 Chief Complaint and Reason for Visit Chief Complaint Admit Date EST NEW PT - NEEDS [facility] - [facility] PT Feb 8:52am Additional Source Comments INFORMATION SOURCE (unrecogn ized section and content) DATE CREATED AUTHOR 10/21/2020 [facility] DATE CREATED AUTHOR AUTHOR'S ORGANIZ ATION 03/16/2024 [facility] DATE CREATED AUTHOR AUTHOR'S ORGANIZ ATION 04/24/2024 [facility] DATE CREATED AUTHOR AUTHOR'S ORGANIZ ATION 06/18/2024 [facility] DATE CREATED AUTHOR AUTHOR'S ORGANIZ ATION 09/06/[address] [facility] DATE CREATED AUTHOR AUTHOR'S ORGANIZ ATION 12/12/2024 [facility] DATE CREATED AUTHOR AUTHOR'S ORGANIZ ATION 02/23/2025 [facility] Care Teams (unrecognized sec tion and content) Team Status: Active Member Role Status Dates Patria Packer CARD MAKER, CARD MAKER-C Primary Care Provider Active Team Status: Inactive Member Role Status Dates Patria Packer CARD MAKER, CARD MAKER-C Primary Care Provider Active Dr. Rodrigo Wooten MD Attending Provider, Referring Pr tristoner Active Weeder Thinner Relationship Specialty Start Date End Date Justyna Colunga CNP [address] [place] [address] PCP - General Family Medicine 04/11/24 Weeder Thinner Relationship Specialty Start Date End Date Justyna Colunga CNP [address] [place] [address] PCP - General Family Medicine 04/11/24 Weeder Thinner Relationship Specialty Start Date End Date Justyna Colunga CNP [address] [place] [address] PCP - General Family Medicine 04/11/24 Weeder Thinner Relationship Specialty Start Date End Date Justyna Colunga CNP [address] [place] [address] PCP - General Family Medicine 04/11/24 Weeder Thinner Relationship Specialty Start Date End Date Justyna Colunga CNP [address] [place] [address] PCP - General Family Medicine 04/11/24 Weeder Thinner Relationship Specialty Start Date End Date Justyna Colunga CNP [address] [place] [address] PCP - General Family Medicine 04/11/24 Weeder Thinner Relationship Specialty Start Date End Date Justyna Colunga CNP [address] [place] [address] PCP - General Family Medicine 04/11/24 Weeder Thinner Relationship Specialty Start Date End Date Justyna Colunga CNP [address] [place] [address] PCP - General Family Medicine 04/11/24 Weeder Thinner Relationship Specialty Start Date End Date Justyna Colunga CNP [address] [place] [address] PCP - General Family Medicine 04/11/24 Weeder Thinner Relationship Specialty Start Date End Date Justyna Colunga, RAIN [address] [place] [address] PCP - General Family Medicine 04/11/24 Weeder Thinner Relationship Specialty Start Date End Date Justyna Colunga, RAIN [address] [place] [address] PCP - General Family Medicine 04/11/24 Weeder Thinner Relationship Specialty Start Date End Date Justyna Colunga CNP [address] [place] [address] PCP - General Family Medicine 04/11/24 Weeder Thinner Relationship Specialty Start Date End Date Justyna Colunga CNP [address] [place] [address] PCP - General Family Medicine 04/11/24 Weeder Thinner Relationship Specialty Start Date End Date Justyna Colunga CNP [address] [place] [address] PCP - General Family Medicine 04/11/24 Team Status: Active Member Role/Relationship Status Dates Patria Packer NP CARD MAKER-C Primary Care Provider Active Team Status: Inactive Member Role/Relationship Status Dates Patria Packer NP CARD MAKER-C Primary Care Provider Active Start: February 11, 2025 End: February 11, 2025 Patria Packer NP CARD MAKER-Kalyani Referring Provider Active Start: February 11, 2025 End: February 11, 2025 ANGELI Tan Attending Provider Active Start: February 11, 2025 End: February 11, 2025 Goals (unrecognized section and content) Goals may be documented in a n alternate sectionGoals may be documented in an alternate section Source Comments (unrecognize d section and content) In the event this informatio n is protected by the Federal Confidentiality of Alcohol and Drug Abuse Patient Records regulations: The Federal rules restrict any use of the information to criminally investigate or prosecute any alcohol or drug abuse patient.[facility] the event this information is protected by the Federal Confidentiality of Alcohol and Drug Abuse Patient Records regulations: The Federal rules restrict any use of the information to criminally investigate or prosecute any alcohol or drug abuse patient.[facility] the event this information is protected by the Federal Confidentiality of Alcohol and Drug Abuse Patient Records regulations: The Federal rules restrict any use of the information to criminally investigate or prosecute any alcohol or drug abuse patient.[facility] the event this information is protected by the Federal Confidentiality of Alcohol and Drug Abuse Patient Records regulations: The Federal rules restrict any use of the information to criminally investigate or prosecute any alcohol or drug abuse patient.[facility] the event this information is protected by the Federal Confidentiality of Alcohol and Drug Abuse Patient Records regulations: The Federal rules restrict any use of the information to criminally investigate or prosecute any alcohol or drug abuse patient.[facility] the event this information is protected by the Federal Confidentiality of Alcohol and Drug Abuse Patient Records regulations: The Federal rules restrict any use of the information to criminally investigate or prosecute any alcohol or drug abuse patient.[facility] the event this information is protected by the Federal Confidentiality of Alcohol and Drug Abuse Patient Records regulations: The Federal rules restrict any use of the information to criminally investigate or prosecute any alcohol or drug abuse patient.[facility] the event this information is protected by the Federal Confidentiality of Alcohol and Drug Abuse Patient Records regulations: The Federal rules restrict any use of the information to criminally investigate or prosecute any alcohol or drug abuse patient.[facility] the event this information is protected by the Federal Confidentiality of Alcohol and Drug Abuse Patient Records regulations: The Federal rules restrict any use of the information to criminally investigate or prosecute any alcohol or drug abuse patient.[facility] the event this information is protected by the Federal Confidentiality of Alcohol and Drug Abuse Patient Records regulations: The Federal rules restrict any use of the information to criminally investigate or prosecute any alcohol or drug abuse patient.[facility] the event this information is protected by the Federal Confidentiality of Alcohol and Drug Abuse Patient Records regulations: The Federal rules restrict any use of the information to criminally investigate or prosecute any alcohol or drug abuse patient.[facility] the event this information is protected by the Federal Confidentiality of Alcohol and Drug Abuse Patient Records regulations: The Federal rules restrict any use of the information to criminally investigate or prosecute any alcohol or drug abuse patient.[facility] the event this information is protected by the Federal Confidentiality of Alcohol and Drug Abuse Patient Records regulations: The Federal rules restrict any use of the information to criminally investigate or prosecute any alcohol or drug abuse patient.[facility] the event this information is protected by the Federal Confidentiality of Alcohol and Drug Abuse Patient Records regulations: The Federal rules restrict any use of the information to criminally investigate or prosecute any alcohol or drug abuse patient.[facility] the event this information is protected by the Federal Confidentiality of Alcohol and Drug Abuse Patient Records regulations: The Federal rules restrict any use of the information to criminally investigate or prosecute any alcohol or drug abuse patient.[facility] the event this information is protected by the Federal Confidentiality of Alcohol and Drug Abuse Patient Records regulations: The Federal rules restrict any use of the information to criminally investigate or prosecute any alcohol or drug abuse patient.[facility] the event this information is protected by the Federal Confidentiality of Alcohol and Drug Abuse Patient Records regulations: The Federal rules restrict any use of the information to criminally investigate or prosecute any alcohol or drug abuse patient.[facility] the event this information is protected by the Federal Confidentiality of Alcohol and Drug Abuse Patient Records regulations: The Federal rules restrict any use of the information to criminally investigate or prosecute any alcohol or drug abuse patient.[facility] the event this information is protected by the Federal Confidentiality of Alcohol and Drug Abuse Patient Records regulations: The Federal rules restrict any use of the information to criminally investigate or prosecute any alcohol or drug abuse patient.[facility] the event this information is protected by the Federal Confidentiality of Alcohol and Drug Abuse Patient Records regulations: The Federal rules restrict any use of the information to criminally investigate or prosecute any alcohol or drug abuse patient.[facility] the event this information is protected by the Federal Confidentiality of Alcohol and Drug Abuse Patient Records regulations: The Federal rules restrict any use of the information to criminally investigate or prosecute any alcohol or drug abuse patient.[facility] the event this information is protected by the Federal Confidentiality of Alcohol and Drug Abuse Patient Records regulations: The Federal rules restrict any use of the information to criminally investigate or prosecute any alcohol or drug abuse patient.[facility] the event this information is protected by the Federal Confidentiality of Alcohol and Drug Abuse Patient Records regulations: The Federal rules restrict any use of the information to criminally investigate or prosecute any alcohol or drug abuse patient.[facility] the event this information is protected by the Federal Confidentiality of Alcohol and Drug Abuse Patient Records regulations: The Federal rules restrict any use of the information to criminally investigate or prosecute any alcohol or drug abuse patient.[facility] the event this information is protected by the Federal Confidentiality of Alcohol and Drug Abuse Patient Records regulations: The Federal rules restrict any use of the information to criminally investigate or prosecute any alcohol or drug abuse patient.[facility] the event this information is protected by the Federal Confidentiality of Alcohol and Drug Abuse Patient Records regulations: The Federal rules restrict any use of the information to criminally investigate or prosecute any alcohol or drug abuse patient.[facility] Reason for Visit (unrecogniz ed section and content) Reason Comments Physical Therapy Specialty Diagnoses / Procedures Referred By Contact Referred To Contact [facility] Diagnoses Acute left ankle pain Chronic pain of right ankle Procedures CONSULT TO PHYSICAL THERAPY PHYSICAL THERAPY EVALUATION HIGH COMPLEX 45 MINS Paula Fitzgerald, RAMEZ [address] [place] [address] [facility] [place] [address] [place] [address] Referral ID Status Reason Start Date Expiration Date Visits Requested Visits Authorized [id number] Authorized Auto-Generat ed Referral 05/07/2024 08/06/2024 8 8 Reason Comments PT Progress Note Physical Therapy Specialty Diagnoses / Procedures Referred By Contact Referred To Contact Physical Therapy / PHYSICAL THERAPY Diagnoses Chronic pain of left knee Procedures CONSULT TO PHYSICAL THERAPY PHYSICAL THERAPY EVALUATION HIGH COMPLEX 45 MINS Paula Fitzgerald, PA-C [address] [id number] Samuel Velasquez, PT [address] [place] [address] Referral ID Status Reason Start Date Expiration Date Visits Requested Visits Authorized [id number] Authorized Auto-Generat ed Referral 08/07/2023 08/06/2024 30 30 Specialty Diagnoses / Procedures Referred By Contac t Referred To Contact MR IMAGING Diagnoses Chronic pain of left knee Procedures MRI KNEE WO IVCON LEFT MRI ANY JT LOWER EXTREM W/O CONTRAST MATRL Dionicio Vaca MD [address] [place] [address] [facility] Referral ID Status Reason Start Date Expiration Date V isits Requested Visits Authorized [id number] Closed Auto-Generate d Referral 03/04/2024 04/03/2024 1 1 Reason Comments Patient Question Reason Comments Schedule Surgery Left knee arthroscop y Reason Comments Pre-Op Visit Reason Comments Radio Gen RMP Specialty Diagnoses / Procedures Referred By Contac t Referred To Contact XR IMAGING Diagnoses Pain Procedures XR KNEE GENERAL 4V AP BOTH/PA BOTH/LAT/MERC LEFT RADIOLOGIC EXAM KNEE COMPLETE 4/MORE VIEWS Dionicio Vaca MD [address] [place] [address] [place] [address] Referral ID Status Reason Start Date Expiration Date V isits Requested Visits Authorized [id number] Closed Auto-Generate d Referral 01/22/2024 02/20/2025 1 1 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 Reason Comments Patient Update Specialty Diagnoses / Procedures Referred By Elva t Referred To Contact Diagnoses Chronic pain of left knee Procedures ARTHROSCOPY KNEE REMOVAL LOOSE/FOREIGN BODY ARTHROSCOPY KNEE REMOVAL OF LOOSE OR FOREIGN BODY BILATERAL Mm Asce [address] [id number] Referral ID Status Reason Start Date Expiration Date Visits Re quested Visits Authorized [id number] 1 1 Reason Comments PT Eval Specialty Diagnoses / Procedures Referred By Contac t Referred To Contact XR IMAGING Diagnoses Acute left ankle pain Procedures XR ANKLE GENERAL 3V AP/LAT/OBL LEFT RADEX ANKLE COMPLETE MINIMUM 3 VIEWS Paula Fitzgerald PA-C [address] [id number] X[facility] [place] [address] Referral ID Status Reason Start Date Expiration Date V isits Requested Visits Authorized [id number] Closed Auto-Generate d Referral 05/07/2024 06/06/2025 1 1 Reason Comments Post Op Reason Comments New Something catches wh en moving the ankle. Pain Something catches wh en moving the ankle. New Slipped and hit foot on the hardwood floor. Pain Slipped and hit foot on the hardwood floor. Specialty Diagnoses / Procedures Referred By Contpatria t Referred To Contact Orthopedics Diagnoses Acute left ankle pain Chronic pain of right ankle Procedures CONSULT PANEL TO ORTHOPAEDICS OFFICE/OUTPATIENT [facility]IGH [facility]DM 60 MINUTES Paula Fitzgerald PA-C [address] [place] [address] Referral ID Status Reason Start Date Expiration Date V isits Requested Visits Authorized [id number] Closed PCP Requested Referral 05/07/2024 05/07/2025 1 1 Referral ID Status Reason Start Date Expiration Date V isits Requested Visits Authorized [id number] Closed Auto-Generate d Referral 05/07/2024 08/06/2024 8 8 Reason Comments Post Op Scheduled Active and Recently Administ ered Medications (unrecognized section and content) Medication Order 04/16/2024 04/17/2024 04/18/2024 acetaminophen 650 mg tab(s) (TYLENOL) (COMPLETED) 650 mg, ORAL, ONCE, 1 dose, On Ursula 04/18/24 at 1530, For mild pain or headache, if not given any other Acetaminophen containing product 4 hours prior, Recovery or Phase I (only) 1550 (Given - Provid er: Cassi Church RN) ceFAZolin iv piggyback 2 g in D5W (iso-osmotic) 100 mL (ANCEF) (COMPLETED) 2 g, INTRAVENOUS, at 200 mL/hr, Administer over 30 Minutes, PRE-OP ONCE, 1 dose, On [place] 04/18/24 at 1300, Orthopedic Cases - MRSA Negative or Low Risk PRE-OP ANTIBIOTIC ADMINISTER ONLY IN SURGICAL AREA DO NOT ADMINSTER ON THE FLOOR Refrigerate, Antimicrobial indication: Prophylaxis: Purpose of antimicrobial is to prevent infection., Preprocedure 1301 (Sent with Teresa ent - Provider: Kristal Palomares RN)1409 (Given - Provider: Sirisha Barkley APRN.CRNA) oxyCODONE IR 10 mg tab(s) (ROXICODONE) (COMPLETED) 10 mg, ORAL, ONCE, 1 dose, On Urs[place] 04/18/24 at 1530, Recovery or Phase I (only) 1550 (Given - Provid er: Cassi Church RN) Continuous Medication Order 04/16/2024 04/17/2024 04/18/2024 lactated ringers iv infusion (CANCELED) 5-30 mL/hr, INTRAVENOUS, CONTINUOUS, Starting on Ursula 04/18/24 at 1300, Until [place] 04/18/24 at 1634, Preprocedure 1322 (New Bag/Syring e/Bottle - Provider: Judit Keys RN)1402 (Continued by Anesthesia - Provider: Sirisha Barkley APRN.CRNA)1450 (Infusion Complete - Provider: Sirisha Barkley APRN.CRNA) lactated ringers iv infusion 5-30 mL/hr, INTRAVENOUS, CONTINUOUS, Starting on Ursula 04/18/24 at 1530, Until Mon04/19/24 at 0304, Recovery or Phase I (only) 1530 (Due) PRN Medication Order 04/16/2024 04/17/2024 04/18/2024 EPINEPHrine 1 mg/mL (1 mL) injection (CANCELED) X (OR/PROCEDURE) PRN, Starting on Urs[place] 04/18/24 at 1412, Until [place] 04/18/24 at 1515, Intraprocedure 1412 (Given - Provid er: Joss Angelo MD) lidocaine 1%-EPINEPHrine 1:100,000 injection (CANCELED) X (OR/PROCEDURE) PRN, Starting on Urs[place] 04/18/24 at 1425, Until [place] 04/18/24 at 1515, Intraprocedure 1425 (Given - Provid er: Joss Angelo MD) meperidine (PF) 12.5 mg injection (DEMEROL) 12.5 mg, INTRAVENOUS, EVERY 10 MINUTES NEEDED, 2 doses, Starting on Rus[place] 04/18/24 at 1513, Until Mon04/19/24 at 0304, for shivering, May Repeat 12.5 mg in 10 minutes X1 for Continued Shivering, Recovery or Phase I (only) meperidine (PF) 25 mg injection (DEMEROL) 25 mg, INTRAVENOUS, EVERY 5 MINUTES NEEDED, 6 doses, Starting on Ursula 04/18/24 at 1513, Until Mon04/19/24 at 0304, Moderate Pain (4-6) - Parenteral, Severe Pain (>/=7) - Parenteral, First Line Therapy, USE FOR MODERATE TO SEVERE PAIN ONLY IF PATIENT IS UNABLE TO TOLERATE ORAL THERAPY, Recovery or Phase I (only) morphine injection (CANCELED) X (OR/PROCEDURE) PRN, Starting on Ursula 04/18/24 at 1412, Until [place] 04/18/24 at 1515, Intraprocedure 1412 (Given - Provid er: Joss Angelo MD) ROPivacaine (PF) 5 mg/mL (0.5 %) injection (NAROPIN) (CANCELED) X (OR/PROCEDURE) PRN, Starting on Urs[place] 04/18/24 at 1412, Until [place] 04/18/24 at 1515, Intraprocedure 1412 (Given - Provid er: Joss Angelo MD) FOR RECORDS PERTAINING TO PATIENTS WHO ARE OR HAVE BEEN ENROLLED IN A CHEMICAL DEPENDENCY/SUBSTANCEABUSE PROGRAM, SOME INFORMATION MAY BE OMITTED. This clinical summary was aggregated from multiple sources. Caution should be exercised in using it in the provision of clinical care. This summary normalizes information from multiple sources, and as a consequence, information in this document may materially change the coding, format and clinical context of patient data. In addition, data may be omitted in some cases. CLINICAL DECISIONS SHOULD BE BASED ON THE PRIMARY CLINICAL RECORDS. [facility] provides no warranty or guarantee of the accuracy or completeness of information in this document.
== END | disposition home or self-care (01) ==
LOC: CVS 06:55
PROVIDERS: PCP Nurse Practitioner Family; Referring Provider Nurse Practitioner Family; Visit Provider Nurse Practitioner Family
DX: R07.89 Other chest pain (principal)
CPT/HCPCS: 93306

== ENCOUNTER → 2025-07-14 | Outpatient (CLI) | payer MEDICAID, SELFPAY ==
[2025-07-14 11:12] LABS: Free T3 9.0 pg/mL (2.18-3.98)
[2025-07-17 03:07] LABS: Egg, Whole <0.10 kU/L (Class 0); Mussels <0.10 kU/L (Class 0)
== END | disposition home or self-care (01) ==
LOC: CIMLAB 08:54
PROVIDERS: PCP Nurse Practitioner Family; Referring Provider Nurse Practitioner Family; Visit Provider Nurse Practitioner Family
DX: K21.9 Gastro-esophageal reflux disease without esophagitis (principal); G43.909 Migraine, unspecified, not intractable, without status migrainosus; Q79.60 Ehlers-Danlos syndrome, unspecified; E06.3 Autoimmune thyroiditis; E03.9 Hypothyroidism, unspecified
CPT/HCPCS: 36415; 84439; 84443; 84481; 86003; 86005

== ENCOUNTER → 2025-07-25 | Outpatient (CLI) | payer MEDICAID, SELFPAY ==
--- NOTE | 2025-07-25 09:22 | BI_ITS ---
EXAM: DIAG MAMM W/CAD, BILAT; BILAT BRST ELYSSA STAND ALONE; BREAST LIMITED UNILATERAL 07/25/2025 CLINICAL HISTORY: F, Age 30 y/o , HISTORY OF CYST IN BREAST; CYST; HISTORY OF ABNORMAL BREAST TISSUE TECHNIQUE: Procedure Code: [id number]; BIBILATBRTOM; USBRSTLIMIT Modality: MG; US Procedure: DIAG MAMM W/CAD, BILAT; BILAT BRST ELYSSA STAND ALONE; BREAST LIMITED UNILATERAL. COMPARISON: Prior exam(s) dated mammogram 08/18/2020; ultrasound 10/09/2024, 12/06/2023. FINDINGS: MAMMOGRAM: TISSUE DENSITY: The breasts are heterogeneously dense, which may obscure small masses. The mammogram demonstrates that the patient has dense breasts. Supplemental screening with whole breast ultrasound or MRI may be considered for further evaluation. Bilateral Breast Mammographic Findings: Patient presents for follow-up of the bilateral breast masses seen on examination of 10/09/2024. On the present examination, there are multiple bilateral circumscribed masses. There is a large circumscribed oval mass in the upper-outer right breast at middle depth with an associated biopsy marker clip, this appears to have slightly increased in size when compared to prior examinations dating back to 2020. The other bilateral circumscribed masses, some of which have biopsy marker clips, appear grossly stable compared to priors. There are no suspicious calcifications or architectural distortions in either breast. ULTRASOUND: Ultrasound performed of the superior right breast demonstrates an oval circumscribed vascular hypoechoic mass at 11 o'clock 6 cm from the nipple measuring 3.7 x 3.6 x 2.6 cm, previously on examination of 10/09/2024 measuring 3.8 x 2.5 x 3.2 cm. The oval circumscribed hypoechoic mass at 12 o'clock 6 cm from the nipple measures 1.8 x 1.3 x 0.9 cm, previously 1.8 x 0.9 x 1.6 cm. The oval circumscribed hypoechoic mass at 12 o'clock 8 cm from the nipple measures 0.7 x 0.7 x 0.3 cm, previously 0.6 x 0.6 x 0.6 cm. The oval circumscribed hypoechoic mass at 2 o'clock 5 cm from the nipple measures 1.5 x 1.5 x 1.1 cm, previously 1.6 x 1.3 x 1.1 cm. BI/Bilat Brst Elyssa Stand Alone IMPRESSION: 1. The right breast mass at 11 o'clock 6 cm from the nipple with an associated biopsy marker clip is stable from the most recent prior examination of 10/09/2024, however it has slightly increased when compare d to examination of 12/06/2023. Recommend short interval six-month follow-up diagnostic ultrasound of the right breast for furt her evaluation and assess for 2 year stability. 2. 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 OVERALL FINAL ASSESSMENT BI-RADS 3: PROBABLY BENIGN. RECOMMENDATION: 6 Month Follow-up Additional Recommendation none A letter with findings and recommendations will be mailed to the patient. Reading Location: [id number]
== END | disposition home or self-care (01) ==
LOC: OPBI 09:15
PROVIDERS: PCP Nurse Practitioner Family; Referring Provider Nurse Practitioner Family; Visit Provider Nurse Practitioner Family
DX: Z87.2 Personal history of diseases of the skin and subcutaneous tissue (principal)
CPT/HCPCS: 77062; 76642; 77066; G0279